=== PATIENT | male | born 1950 | race Caucasian/White ===

== ENCOUNTER 2020-02-01 00:48 | Inpatient (IN) | payer MEDICARE, OTHER, SELFPAY ==
[2020-02-01] VITALS (17 sets, daily range): BP systolic 103–144; BP diastolic 43–125; PULSE 58–80; RESP 16–20; TEMP 36.7–39.4; O2SAT 90–98; BMI 23.7
--- NOTE | ~2020-02-01 | XR_ITS ---
EXAMINATION: XR chest 2V DATE: 02/02/2020 15:52 INDICATION: Shortness of breath. Chest pain. TECHNIQUE: Frontal and lateral views of the chest were obtained. COMPARISON: Chest 2 views 02/01/2020 FINDINGS: There are small pleural effusions. There is a diffuse interstitial pattern, consistent with mild pulmonary edema. There are airspace opacities in the lower lung zones. No pneumothorax. The hea rt size is normal. Median sternotomy wires are noted. There is chronic anterior wedging of multiple t horacic vertebral bodies. IMPRESSION: 1. Mild pulmonary edema. 2. New small pleural effusions. 3. New airspace opacities in the lower lung zones, consistent with atelectasis versus pneumonia. Reviewed, dictated and finalized at location A.
--- NOTE | ~2020-02-01 | XR_ITS ---
EXAMINATION: XR abdomen obstructive series DATE: 02/04/2020 10:55 INDICATION: Abdominal pain TECHNIQUE: Upright and supine views of the abdomen were obtained. COMPARISON: 06/28/2012 FINDINGS: There is a large volume of colonic stool. No dilated loops of bowel are evident. The lung b ases are clear. There is no free intraperitoneal gas. Mild lumbar spondylosis is noted. Median sterno alicia wires and mediastinal surgical clips are seen, likely from prior coronary artery bypass grafting . A coronary artery stent is noted. IMPRESSION: 1. Constipation. Nonobstructive bowel gas pattern. Reviewed, dictated and finalized at location A.
--- NOTE | ~2020-02-01 | XR_ITS ---
EXAMINATION: XR chest 2V DATE: 02/01/2020 02:38 INDICATION: Weakness TECHNIQUE: AP and lateral views of the chest are obtained. COMPARISON: 02/26/2017 FINDINGS: The lungs are free of acute opacities. There is no pleural effusion or pneumothorax. Median sternotomy wires and mediastinal surgical clips are seen, likely from prior coronary artery bypass g rafting. There are multiple stable chronic compression fractures of the midthoracic spine. IMPRESSION: 1. No acute cardiopulmonary abnormality. Reviewed, dictated and finalized at location A.
--- NOTE | ~2020-02-01 | CT_ITS ---
EXAMINATION: CTA brain carotid DATE: 02/01/2020 02:30 INDICATION: Dizziness. TECHNIQUE: Computed tomographic angiography (CTA) of the head was performed without and with 100 mL O mnipaque-350 intravenous contrast. CTA of the neck was performed with intravenous contrast. Automated exposure control and iterative reconstruction technique were employed. The dose-length product was 1 816.60 mGy-cm. Maximum intensity projection and volume rendered 3D-reconstructions were created by hollie mcqueen technologist on a separate workstation. COMPARISON: Head CT 02/26/2017 FINDINGS: HEAD CTA: There are old infarcts in right frontal lobe. There is an old lacunar infarct in left cauda te nucleus. There are scattered areas of low attenuation in the cerebral white matter, likely chronic small vessel ischemic disease. There is no intracranial hemorrhage, acute infarction, or abnormal in tracranial mass lesion. The ventricles are normal in size. There is mild mucosal thickening in the pa ranasal sinuses. The mastoid air cells are normal. The orbits are normal. The vertebral arteries are codominant. There is no significant stenosis of basilar artery or the posterior cerebral arteries. Th ere is mild stenosis of the intracranial internal carotid arteries. There is no significant stenosis of the anterior or middle cerebral arteries. Right A1 anterior cerebral artery segment is small, a no rmal variant. Anterior communicating artery is normal. The posterior communicating arteries are serge l. There is no aneurysm. NECK CTA: There is mild scarring at the lung apices. There are no pathologically enlarged lymph nodes . There is no significant stenosis of the vertebral arteries. There is plaque in the proximal interna l carotid arteries. There is 16% stenosis of the proximal right internal carotid artery relative to n ormal distal artery lumen diameter (NASCET criteria). There is 25% stenosis of the proximal left inte rnal carotid artery relative to normal distal artery lumen diameter. There is severe cervical spondyl osis. IMPRESSION: 1. Old infarcts in the right frontal lobe and left caudate nucleus. 2. No aneurysm or significant intracranial arterial stenosis. 3. 16% stenosis of the proximal right internal carotid artery relative to normal distal artery lumen diameter (NASCET criteria). 4. 25% stenosis of the proximal left internal carotid artery relative to normal distal artery lumen d iameter. Reviewed, dictated and finalized at location A. IMPRESSION: 1. Old infarcts in the right frontal lobe and left caudate nucleus. 2. No aneurysm or significant intracranial arterial stenosis. 3. 16% stenosis of the proximal right internal carotid artery relative to serge l distal artery lumen diameter (NASCET criteria). 4. 25% stenosis of the proximal left internal carotid artery relative to normal distal artery lumen diameter.
--- NOTE | 2020-02-01 01:06 | ECG_ITS ---
Measurements Intervals [place] Rate: 71 P: [place]: 0 QRS: -33 QRSD: 191 T: 0 QT: 349 QTc: 380 Interpretive Statements ACCLERATED JUNCTIONAL RHYTHM LEFT AXIS DEVIATION INTRAVENTRICULAR CONDUCTION DELAY ANTEROSEPTAL INFARCT, AGE INDETERMINATE BORDERLINE T WAVE ABNORMALITY- HIGH LATERAL LEADS ABNORMAL ECG Electronically Signed On 02-01-2020 7:16:37 CDT by Keith Aburto D.O.
[2020-02-01 01:15] LABS: Basophils Absolute Auto 0.1 K/mm3 (0.0-0.1); Basophils Percent Auto 0.4 % (0.2-1.2); Eosinophils Percent Auto 0.1 % (0-4.4); Hematocrit 39.5 % (42.0-52.0); Hemoglobin 13.6 g/dL (14.0-18.0); Immature Granulocyte Absolute 0.24 K/mm3 (0.00-0.031); Immature Granulocyte Percent A 1.3 % (0-0.5); Lymphocytes Absolute Auto 1.26 K/mm3 (0.9-3.2); Lymphocytes Percent Auto 6.8 % (18.3-44.2); Mean Corpuscular HGB Conc 34.4 g/dl (32-36); Mean Corpuscular Hemoglobin 32.2 pg (26-34); Mean Corpuscular Volume 93.6 fl (80-100); Mean Platelet Volume 10.7 fl (7.4-10.4); Monocytes Absolute Auto 2.4 K/mm3 (0.1-0.6); Monocytes Percent Auto 12.9 % (2.6-8.5); Neutrophils Absolute Auto 14.6 K/mm3 (1.3-6.7); Neutrophils Percent Auto 78.5 % (45.5-73.1); Platelet Count Result 168 k/mm3 (150-375); Red Blood Count 4.22 M/mm3 (4.6-6.20); Red Cell Distribution Width 13.3 % (11.5-14.5); White Blood Count 18.5 K/mm3 (4.5-10.0)
[2020-02-01 01:27] LABS: Alanine Aminotransferase 27 U/L (4-50); Albumin Level 3.9 g/dL (3.5-5.1); Alkaline Phosphatase 96 U/L (38-126); Anion Gap 8 mmol/L (8-16); Aspartate Amino Transferase 43 U/L (17-59); Bilirubin,Total 0.4 mg/dL (0.2-1.3); Blood Urea Nitrogen 14 mg/dL (9-20); Calcium 8.2 mg/dL (8.4-10.2); Carbon Dioxide 24 mmol/L (22-30); Chloride 99 mmol/L (98-107); Estimated CRCL calculation 49 ml/min; Estimated Glomerular Filt Rate 55; Glucose 164 mg/dL (75-110); Potassium 3.7 mmol/L (3.4-5.0); Sodium 131 mmol/L (137-145)
[2020-02-01 01:34] LABS: INR 1.2; Prothrombin Time 14.5 Seconds (11.1-14.7)
[2020-02-01 01:35] LABS: Partial Thromboplastin Time 30.9 SECONDS (22.3-36.8)
--- NOTE | 2020-02-01 02:26 | ED.DIZZY ---
HPI - Dizziness General Chief Complaint: Dizziness Stated Complaint: dizziness Time Seen by Provider: 02/01/20 01:00 Source: patient Mode of arrival: EMS Limitations: no limitations History of Present Illness HPI Narrative: This patient is a 69 year old male who presents for evaluation of dizziness x 2 days. He states he has been having dizziness . He reports he is having difficulty walking and he has hit his head on the wall twice due to dizziness. He describes dizziness as feeling unsteady. He denies a headache but reports lights are both him. He denies blurred vision or diplopia but he feels as if he sees things moving when they are not. He also reports both legs feel fatigued. HE denies numbness or tingling. Related Data Home Medications Medication Instructions Recorded Confirmed Aspirin Low Dose 81 mg PO DAILY 02/01/20 02/01/20 ezetimibe 10 mg PO DAILY 02/01/20 02/01/20 phenytoin sodium extended 200 mg PO BID 02/01/20 02/01/20 rosuvastatin 20 mg PO DAILY 02/01/20 02/01/20 Allergies Allergy/AdvReac Type Severity Reaction Status Date / Time No Known Allergies Allergy Verified 09/03/17 09:12 Review of Systems Review of Systems: All systems reviewed & are unremarkable except as noted in HPI and below Constitutional: Constitutional: Denies chills, Denies fever(s) and Reports weakness Eyes: Eyes: Reports photophobia Cardiovascular: Cardiovascular: Denies chest pain and Denies radiating jaw, neck or arm pain Respiratory: Respiratory: Denies cough and Denies dyspnea Gastrointestinal: Gastrointestinal: Denies abdominal pain, Denies nausea and Denies vomiting Neurologic: Reports dizziness, Denies headache(s), Denies focal weakness, Denies numbness and Reports weakness [facility] Past Medical History Medical History (Updated 02/01/20 @ 07:27 by Carina Hays MD) Seizure Surgical History Surgical History (Updated 02/01/20 @ 02:27 by Carina Hays MD) Hx of CABG Family History Family History (Updated 02/01/20 @ 04:47 by Penny Otto RN) Sibling Diabetes mellitus Father Acute myocardial infarction Other Family history of arthritis Social History Social History Smoking packs per day: 2 Smoking cigarettes per day: 40.0 Years smoked: 50 Smoking pack-years: 100.00 Smoking status: Current every day smoker Tobacco type: cigarettes Alcohol intake: former Drinks per week: 30 Substance use: never Substance use type: does not use Gender identity (if verbalized by the patient): Male Sexual Orientation (if Verbalized by the Patient): Straight or Heterosexual Spiritual care concerns: No Exam Const: General: no acute distress and alert Orientation/consciousness: patient oriented x3 HENMT: Head: normocephalic and atraumatic Ears: other (abrasion to right ear lobe) Face and sinus: face symmetric Mouth: Yes Normal oral and palatal mucosa present and Yes oropharynx normal Throat: posterior oropharynx normal and uvula midline Eyes: Conjunctivae: conjunctivae normal Pupils: Equal, round and reactive pupils present EOM: EOMs intact bilaterally Chest: Chest palpation & inspection: normal inspection of the chest Resp: Effort & Inspection: normal respiratory effort and no retractions Auscultation: clear to auscultation bilaterally Cardio: Rate: regular rate Rhythm: regular rhythm Heart sounds: no murmurs GI: GI Palp: Yes Soft to palpation and No Tenderness to palpation present (GI) Auscultation: normal bowel sounds Neuro: General: patient oriented x3, moves all extremities, no meningeal signs, no focal motor deficits and CN's II-XI intact bilaterally Speech: normal speech Coordination: [id number] test normal and other (abnormal finger to nose on the left) Course Consultations Consultation #1: I Discussed with Dr. Porras that patient needs to be admitted for dilantin toxicity. He accepts admission Date: 02/01/20 Time: 03:50 Vital Signs V
[2020-02-01 02:49] LABS: Phenytoin Dilantin 32 ug/mL (10-20)
[2020-02-01 03:05] LABS: Add Urine Microscopic? YES; Appearance Urine Cloudy (Clear); Bacteria Urine 4+ /hpf; Bilirubin Urine Negative (Negative); Blood Urine 3+ (Negative); Color Urine Yellow (Yellow); Glucose Urine UA Negative (Negative); Ketones Urine Negative (Negative); Leukocyte Esterase Ur 2+ LEU/UL (Negative); Mucus Urine Heavy /lpf; Nitrate Urine Positive (Negative); Protein Urine 2+ mg/dL (Negative); Specific Grav Ur 1.019 (1.001-1.035); Urobilinogen Urine Negative mg/dL (<2.0); WBC Urine >75 /hpf
--- NOTE | 2020-02-01 04:30 | PC.NURSE ---
This patient, Nicola Ash, was admitted to Medical Room 252-01. Patient/family oriented to hospital policies and general routines including ID bracelet, bed and alarms, visiting hours, pain management, procedures, bathroom and other care routines, personal items, smoking policy, room service/diet, and visiting hours. Valuables list has been completed. Information on how to activate the Rapid Response Team has been discussed. Patient/Family are encouraged to report perceived risks to care and to ask questions if they do not understand what they are told or what they should do.
[2020-02-01] MEDS: SODIUM CHLORIDE 0.9% IV 1,000 ML 125 ML IV CONT ×2 (05:02→14:39)
--- NOTE | 2020-02-01 06:45 | PC.NURSE ---
0610 pt arrives to floor via bed from 2nd floor, a/o x3, tele initiated. ivf running as ordered
[2020-02-01] MEDS: EZETIMIBE 10 MG TABLET PO (10:08)
[2020-02-01] MEDS: ROSUVASTATIN 10 MG TABLET 20 MG PO (10:08)
--- NOTE | 2020-02-01 12:16 | PM.IMHP ---
H&P: HPI History of Present Illness Date/Time: 02/01/20 1100 Chief complaint: Dizziness Narrative: Date of Service is 02/01/20 1100 The supervising physician for this history and physical is Dr Tatianna Phillips. Mr. Ash is a 69yo M with history of seizure disorder, coronary artery disease s/p CABG 2012, anxiety, ongoing tobacco use who presented to the ED for evaluation of dizziness worsening over the last 2 days. He described that he was walking in his home and hit his head on the wall while walking because he was dizzy. He tells me he fell three times. He describes that it looks like stationary objects are moving. This mostly began around 3 days ago. His last seizure was in May 2019 at which time he was treated at [facility]; prior to this he had not had a seizure in many years. Due to this breakthrough seizures in May, his dilantin was increased from 400mg to 600mg daily. Since that time, he has felt like he's had issues with equilibrium and balance , so much so that his neurologist at the time, Dr Chamorro, decreased his dilantin back to 400 daily. He also notes at that time, he was changed from extended release capsules to chewable tablets and is unsure if that is contributing to his issues. He tells me Dr Chamorro retired and he recently met with Dr Blake a few weeks ago, per patient. He denies syncope, chest pain, shortness of breath, palpitations, headaches, nausea, vomiting. He describes urinary urgency and dribbling, denies dysuria. Dilantin level found to be elevated at 32 in ED. Further workup thus far includes a CTA head/neck which demonstrated multiple old infarcts, no aneurysm or significant intracranial arterial stenosis or other acute findings. Furthermore, he is noted to have an abnormal UA and was started on Rocephin. He is admitted to the hospitalist service for management of dilantin toxicity and UTI. Review of Systems Review of Systems: Narrative: Still a bit dizzy today and feeling off-balance but improved. Dysuria improved. No hematuria. No chest pain, SOB, nausea, vomiting, diarrhea, hematochezia, melena, neck pain or stiffness, headache, or focal weakness. Twelve systems were reviewed with pertinent positives and negatives as per HPI. Except as documented, all other systems were reviewed and are negative. [facility] Past Medical History Medical History (Updated 02/01/20 @ 23:30 by Janneth Cuenca PA-C) Anxiety Cardiomyopathy Chronic cerebrovascular accident Coronary artery disease Dyslipidemia Seizure disorder Tobacco abuse Surgical History Surgical History H/O foot surgery Left foot surgery due to a fracture around 2004 H/O heart artery stent Patient believes in 2008 H/O total knee replacement R total knee arthroplasty by Dr Campos September 2017 Hx of CABG [address] Cherry 2012 Family History Family History Sibling Diabetes mellitus Father Acute myocardial infarction Other Family history of arthritis Social History Social History (Updated 02/01/20 @ 23:18 by Janneth Cuenca PA-C) Social History: Mr. Ash is , retired from working as a security administrator, lives at home alone. He smokes two packs of cigarettes per day for the last 50 years. 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 He had a 4-month binge of alcohol abuse relapse again last year but now has been sober since December 2018. Denies other substance use. PCP is at [facility] - Dr Floyd Patient designates his friend, Bola Keyes, to be his surrogate decision maker and wishes his code status to be Do Not Resuscitate. Smoking packs per day: 2 Smoking cigarettes per day: 40.0 Years smoked: 50 Smoking pack-years: 100.00 Smoking status: Current every day smoker Tobacco type: cigarettes Alcohol intake: former Drinks per week: 30 [place]
[2020-02-01] MEDS: ACETAMINOPHEN 325 MG TABLET 650 MG PO (15:46)
[2020-02-02] VITALS (12 sets, daily range): BP systolic 100–139; BP diastolic 49–61; PULSE 62–106; RESP 16–26; TEMP 36.7–38.3; O2SAT 89–96
--- NOTE | 2020-02-02 | ECHO_ITS ---
Patient Info Name: Nicola Ahs Age: 69 years : 1950 Gender: Male Ht: 69 in Wt: 160 lbs BSA: 1.88 m2 HR: 69 bpm BP: 160 / 60 mmHg Technical Quality: Good Exam Date: 02/02/2020 11:27 AM Exam Location: [facility] Patient Status: Inpatient Admit Date: 02/02/2020 Staff Ordering Physician: Brisa Penny PA-C Back Sizer: Javed West, [place], [place] Attending Provider: Brisa Penny PA-C Referring Physician: Hemalatha TEJEDA; Exam Type: CA echo dop color flow w con Study Info Indications R60.9 - Edema, unspecified Complete two-dimensional, color flow and Doppler transthoracic echocardiogram is performed with contrast to opacify the left ventricle and to improve the deliniation of the left ventricle endocardial borders. Summary 1. Left ventricular systolic function is mildly reduced, estimated at 40-45%. 2. There is akinesis of distal anteroseptal wall and apex. 3. Left atrial chamber dimension is mildly enlarged. 4. There is mild aortic valve sclerosis. 5. There is no aortic valve stenosis. 6. There is no tricuspid valve regurgitation. 7. There is mild to moderate mitral valve regurgitation. 8. There is no pericardial effusion. 9. Inferior vena cava is dilated however collapses by more than >50% upon inspiration consistent with elevated right atrial pressure \R\10-15 mmhg. Left Ventricle Left ventricular chamber dimension is normal. Left ventricular systolic function is mildly reduced, estimated at 40-45%. There is no increased left ventricular wall thickness. There is akinesis of distal anteroseptal wall and apex. The left ventricular diastolic function is normal. Right Ventricle Right ventricular chamber dimension is mildly enlarged. Right ventricular systolic function is normal. Left Atria Left atrial chamber dimension is mildly enlarged. Right Atria Right atrial chamber dimension is normal. Aortic Valve The aortic valve is trileaflet. There is mild aortic valve sclerosis. There is no aortic valve stenosis. There is no aortic valve regurgitation. Pulmonic Valve The pulmonic valve is normal. There is no pulmonic valve stenosis. There is no pulmonic regurgitation. Mitral Valve The mitral valve has normal leaflets. There is no mitral valve stenosis. There is mild to moderate mitral valve regurgitation. Tricuspid Valve The tricuspid valve leaflets are normal. There is no significant tricuspid valve stenosis. There is no tricuspid valve regurgitation. pulmonary hypertension difficult to assess due to poor TR envelop. Pericardium/Pleural The pericardium appears normal. There is no pericardial effusion. Inferior Vena Cava Inferior vena cava is dilated however collapses by more than >50% upon inspiration consistent with elevated right atrial pressure \R\10-15 mmhg. Aorta The aortic root size at the sinus of Valsalva is normal. The prox ascending aorta size is normal. Left Ventricular Outflow Tract Name Value Normal LVOT 2D LVOT Diameter 1.99 cm LVOT Doppler LVOT Peak Gradient 4 mmHg LVOT Mean Gradient 2 mmHg
[2020-02-02] MEDS: SODIUM CHLORIDE 0.9% IV 1,000 ML 125 ML IV CONT ×2 (04:15→12:25)
[2020-02-02 06:55] LABS: Basophils Absolute Auto 0.1 K/mm3 (0.0-0.1); Basophils Percent Auto 0.4 % (0.2-1.2); Eosinophils Absolute Auto 0.1 K/mm3 (0-0.3); Eosinophils Percent Auto 0.7 % (0-4.4); Hematocrit 35.5 % (42.0-52.0); Hemoglobin 12.4 g/dL (14.0-18.0); Immature Granulocyte Absolute 0.16 K/mm3 (0.00-0.031); Immature Granulocyte Percent A 0.9 % (0-0.5); Immature Platelet Fraction Pct 5.9 % (0.9-11.2); Lymphocytes Absolute Auto 0.58 K/mm3 (0.9-3.2); Lymphocytes Percent Auto 3.3 % (18.3-44.2); Mean Corpuscular HGB Conc 34.9 g/dl (32-36); Mean Corpuscular Hemoglobin 32.3 pg (26-34); Mean Corpuscular Volume 92.4 fl (80-100); Mean Platelet Volume 11.7 fl (7.4-10.4); Monocytes Percent Auto 11.2 % (2.6-8.5); Neutrophils Absolute Auto 14.8 K/mm3 (1.3-6.7); Neutrophils Percent Auto 83.5 % (45.5-73.1); Platelet Count Result 124 k/mm3 (150-375); Red Blood Count 3.84 M/mm3 (4.6-6.20); Red Cell Distribution Width 13.2 % (11.5-14.5); White Blood Count 17.8 K/mm3 (4.5-10.0)
[2020-02-02 07:13] LABS: Anion Gap 7 mmol/L (8-16); Blood Urea Nitrogen 16 mg/dL (9-20); Calcium 7.1 mg/dL (8.4-10.2); Carbon Dioxide 20 mmol/L (22-30); Chloride 105 mmol/L (98-107); Estimated CRCL calculation 57 ml/min; Estimated Glomerular Filt Rate > 60; Glucose 123 mg/dL (75-110); Magnesium 2.1 mg/dL (1.6-2.3); Potassium 3.8 mmol/L (3.4-5.0); Sodium 132 mmol/L (137-145)
[2020-02-02 07:18] LABS: Phenytoin Dilantin 27 ug/mL (10-20)
[2020-02-02 07:38] LABS: Burr Cells 1+ (NORMAL)
[2020-02-02] MEDS: EZETIMIBE 10 MG TABLET PO (08:25)
[2020-02-02] MEDS: ROSUVASTATIN 10 MG TABLET 20 MG PO (08:25)
--- NOTE | 2020-02-02 09:11 | ECG_ITS ---
Measurements Intervals [place] Rate: 65 P: 32 [place]: 171 QRS: 44 QRSD: 116 T: 87 QT: 392 QTc: 410 Interpretive Statements SINUS RHYTHM POSSIBLE LEFT ATRIAL ENLARGEMENT [-0.1mV P WAVE IN V1/V2] INDETERMINATE AXIS INCOMPLETE RIGHT BUNDLE BRANCH BLOCK ANTEROSEPTAL INFARCT, AGE INDETERMINATE SUBTLE ANTEROLATERAL ST ELEVATION- CONSIDER RECENT INFARCT BASELINE ARTIFACT- I, II, III, AVL, AVF, V2, V6 ABNORMAL ECG Electronically Signed On 02-02-2020 10:23:08 CDT by Keith Aburto D.O.
--- NOTE | 2020-02-02 09:11 | PC.NURSE ---
Patient c/o chest pain intermittently on left side. Pain does not radiate. No pain with inspiration. Dr sadler
[2020-02-02 10:14] LABS: NT Pro B Type Natriuretic Pept 7670 PG/ML (5-100); Troponin I 0.077 ng/mL (0.000-0.034)
[2020-02-02] MEDS: ASPIRIN 81 MG CHEWABLE TABLET PO (10:26)
--- NOTE | 2020-02-02 10:38 | PM.IMPN ---
Progress Note: A&P Assessment and Plan (1) Atypical chest pain: Code(s): R07.89 - Other chest pain Status: Acute Assessment and Plan: ----- the nurse called to tell me the patient had chest pain after transitioning from the bed to the chair this morning. I saw the patient thereafter who said his pain is better now 4/10 but was previously an 8/10 stabbing like. It was completely reproducible on exam. He had no jaw pain, arm pain, diaphoresis or shortness of breath associated with this. his last stent CABG was 2012. He does not know who his bundle helper says and thinks that starts with a Z . He has seen deana heart about 5-6 months ago. At this time will give him 324 of aspirin. I do not think he needs to be anticoagulated at this time. Echo ordered. Troponin mildly elevated 0.077 with an elevation of BNP. Will trend these. digoxin level better today 27 but still high. is a Brent consulted and let him know about the case. I offered him some of acetaminophen for his pain but he declined and said he does not like taking pain medications unless it is very bad. (2) Dilantin toxicity: Qualifiers: Encounter type: initial encounter Injury intent: accidental or unintentional Qualified Code(s): T42.0X1A - Poisoning by hydantoin derivatives, accidental (unintentional), initial encounter Code(s): T42.0X1A - Poisoning by hydantoin derivatives, accidental (unintentional), initial encounter Status: Acute Assessment and Plan: -----Unintentional. May be causing his dizziness and unsteadiness. Dilantin level 32 on arrival, now down to 27. Hold dilantin and recheck level in AM. His dose has been changed twice this year. He recently saw Dr Blake. Appreciate neurology consultation in this setting. (3) Seizure disorder: Code(s): G40.909 - Epilepsy, unspecified, not intractable, without status epilepticus Status: Chronic Assessment and Plan: -----Last seizure May 2019 at which time his Dilantin was increased from 400mg daily to 600mg daily, also notes he was switched to a chewable tablet from extended release capsule. Since then he has felt to have issues with equilibrium . Appreciate neurology consultation. (4) Acute UTI: Code(s): N39.0 - Urinary tract infection, site not specified Status: Acute Assessment and Plan: ----- urine culture growing greater than 100 1000 units of Klebsiella. No sensitivities back at this time. Continue ceftriaxone and adjust antibiotics As needed. He is not have any dysuria. Blood cultures are still pending. He did have a fever yesterday (5) Sepsis: Qualifiers: Sepsis type: sepsis due to unspecified organism Sepsis acute organ dysfunction status: unspecified Qualified Code(s): A41.9 - Sepsis, unspecified organism Code(s): A41.9 - Sepsis, unspecified organism Status: Acute Assessment and Plan: ----Evident by fevers and leukocytosis with confirmed UTI. Blood cultures drawn after antibiotics but will monitor those. Continue IV antibiotics at this time (6) Chronic cerebrovascular accident: Code(s): I69.30 - Unspecified sequelae of cerebral infarction Status: Chronic Assessment and Plan: -----Noted on CTA head/neck. Continue ASA and statin therapy. If dizziness continues after holding dilantin, could consider MRI. Appreciate neurology recommendations. (7) Coronary artery disease: Qualifiers: Coronary Disease-Associated Artery/Lesion type: bypass graft [place] vs. transplanted heart: [place] heart Associated angina: without angina Qualified Code(s): I25.810 - Atherosclerosis of coronary artery bypass graft(s) without angina pectoris Code(s): I25.10 - Atherosclerotic heart disease of [place] coronary artery without angina pectoris Status: Chronic Assessment and Plan: ----- bypass 2012. Continue aspirin. See above
[2020-02-02] MEDS: ASPIRIN 81 MG CHEWABLE TABLET 324 MG PO (11:07)
--- NOTE | 2020-02-02 11:50 | WPDNEURCNPN ---
Assessment and Plan Assessment and plan (1) Dizziness: Code(s): R42 - Dizziness and giddiness Status: Acute (2) Seizure disorder: Code(s): G40.909 - Epilepsy, unspecified, not intractable, without status epilepticus Status: Chronic (3) Dilantin toxicity: Qualifiers: Encounter type: initial encounter Injury intent: accidental or unintentional Qualified Code(s): T42.0X1A - Poisoning by hydantoin derivatives, accidental (unintentional), initial encounter Code(s): T42.0X1A - Poisoning by hydantoin derivatives, accidental (unintentional), initial encounter Status: Acute Additional Plan at this stage his ongoing history of seizure disorder complicated with Dilantin toxicity we will need to hold the Dilantin at least for 3 days with recheck the Dilantin level and most likely he will be started on 300 mg of Dilantin per day once his level comes down to 15 micro g per cc Consult date: 02/02/20 Time Seen: 11:30 HPI: Nicola Ash is a 69 year old maleHas been admitted to the hospital with the ongoing diagnosis of seizure disorder, coronary artery disease status post CABG in 2012, anxiety he initially presented to the emergency room for the complaints of dizziness of 2 weeks duration and history of fall several times over the last several days he has increasing symptomatology he reported in May 2019 he had a seizure at [facility] and due to his breakthrough seizures in May Dilantin was increased from 400 to [address] Darnell was subsequently decreased at [place] in 2 to 4 mg daily but active tablet form recently he was seen in our office 1st time when he was taking Dilantin 400 mg and has had no seizure on initial evaluation in the emergency room this time his level was 32 CTA of the head and neck revealed multiple old infarcts without any aneurysmal or intersect cranial arterial stenosis Review of Systems Review of Systems: All systems reviewed & are unremarkable except as noted in HPI and below PMFSH Past Medical History Medical History (Updated 02/02/20 @ 10:50 by Brisa Penny PA-C) Anxiety Cardiomyopathy Chronic cerebrovascular accident Coronary artery disease Dyslipidemia Seizure disorder Tobacco abuse Surgical History Surgical History H/O foot surgery Left foot surgery due to a fracture around 2004 H/O heart artery stent Patient believes in 2008 H/O total knee replacement R total knee arthroplasty by Dr Campos September 2017 Hx of CABG [address] Cherry 2012 Family History Family History Sibling Diabetes mellitus Father Acute myocardial infarction Other Family history of arthritis Social History Social History (Updated 02/01/20 @ 23:18 by Janneth Cuenca PA-C) Social History: Mr. Ash is , retired from working as a network security engineer, lives at home alone. He smokes two packs of cigarettes per day for the last 50 years. 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 He had a 4-month binge of alcohol abuse relapse again last year but now has been sober since December 2018. Denies other substance use. PCP is at [facility] - Dr Floyd Patient designates his friend, Bola Keyes, to be his surrogate decision maker and wishes his code status to be Do Not Resuscitate. Smoking packs per day: 2 Smoking cigarettes per day: 40.0 Years smoked: 50 Smoking pack-years: 100.00 Smoking status: Current every day smoker Tobacco type: cigarettes Alcohol intake: former Drinks per week: 30 Substance use: never Substance use type: does not use Gender identity (if verbalized by the patient): Male Sexual Orientation (if Verbalized by the Patient): Straight or Heterosexual Spiritual care concerns: No Meds Home Medications and Allergies Home Medications
--- NOTE | 2020-02-02 12:04 | PM.CNCAR ---
Assessment and Plan Assessment and plan (1) Atypical chest pain: Code(s): R07.89 - Other chest pain Status: Acute Assessment and Plan: 69 y/o with CAD s/p CABG, active tobacco abuse, admitted with dizziness and supra therapeutic levels of digoxin and Dilantin who is seen in cardiac consultation for chest pain and trop elevation His chest pain is reproducible and atypical for angina He has very mild trop elevation peaked at 0.07 happening in the setting of acute systolic CHF exacerbation suggested by exam, NT pro BNP of 7000 and also echo showing evidence of elevated filling pressure of both left and right atrium. Echo also shows apical akinesis with overall EF ~40-45%. Will need to get records from Dr Cherry office to see if those findings are old or new. Will start lasix 40 mg IV daily unclear to me why he is on digoxin. That is on hold currently due to high levels on admission (2) Coronary artery disease: Qualifiers: Coronary Disease-Associated Artery/Lesion type: bypass graft [place] vs. transplanted heart: [place] heart Associated angina: without angina Qualified Code(s): I25.810 - Atherosclerosis of coronary artery bypass graft(s) without angina pectoris Code(s): I25.10 - Atherosclerotic heart disease of [place] coronary artery without angina pectoris Status: Chronic Assessment and Plan: s/p CABG continue ASA and statin Request records from Dr Cherry office. unfortunately continues to smoke 2 pack a day (3) Tobacco abuse: Code(s): Z72.0 - Tobacco use Status: Chronic (4) Dizziness: Code(s): R42 - Dizziness and giddiness Status: Acute History of Present Illness History of Present Illness Consult date/time: 02/02/20 12:04 69 y/o with h/o CAD s/p CABG 2012, alcohol and tobacco abuse, seizure disorder who presented with dizziness. He was found to have elevated digoxin and Dilantin levels hence was admitted for further evaluation. While admitted he developed episode of chest pain while transferring from bed. Pain has resolved at time of my evaluation. It states that he had one painful spot and points to left upper chest wall right under the left shoulder. Pain has resolved now. He has trop of 0.07 and subsequent trop down to 0.06. EKG showed sinus rhythm with incomplete RBBB and borderline ST elevation on lateral leads however that mostly unchanged from EKG on admission. He is followed by Dr Cherry at [facility]. He had CABG in 2013. Unfortunately he continues to smoke 2 packs a day. He has history of alcohol abuse but states he has not been drinking for the last year. Reason For Visit: Dizziness Review of Systems Review of Systems: All systems reviewed & are unremarkable except as noted in HPI and below Constitutional: Constitutional: Denies fatigue and Denies headache(s) Eyes: Eyes: Denies blurry vision ENT: Reports Normal hearing present and Denies headache(s) Cardiovascular: Cardiovascular: Denies chest pain, Denies diaphoresis, Denies pedal edema, Denies leg edema, Denies lightheadedness, Denies palpitations and Denies dyspnea Respiratory: Respiratory: Denies cough and Denies dyspnea Gastrointestinal: Gastrointestinal: Denies abdominal pain Musculoskeletal: Musculoskeletal: Denies back pain Neurologic: Reports Normal hearing present and Denies headache(s) Psychiatric: Psychiatric: Denies anxiety Endocrine: Endocrine: Denies fatigue and Denies palpitations [facility] Past Medical History Medical History (Updated 02/02/20 @ 10:50 by Brisa Penny PA-C) Anxiety Cardiomyopathy Chronic cerebrovascular accident Coronary artery disease Dyslipidemia Seizure disorder Tobacco abuse Surgical History Surgical History H/O foot surgery Left foot surgery due to a fracture around 2004 H/O heart artery stent Patient believes in 2008 H/O total knee replacement R total knee
[2020-02-02] MEDS: PERFLUTREN LIPID MICROSPHERES 1.5 ML VIAL DILUTED TO 10 ML TOTAL VOLUME IV PUSH (12:08)
[2020-02-02 13:01] LABS: Troponin I 0.068 ng/mL (0.000-0.034)
[2020-02-02] MEDS: FUROSEMIDE INJ 40 MG/4 ML VIAL IV PUSH (14:47)
[2020-02-02 16:08] LABS: Troponin I 0.062 ng/mL (0.000-0.034)
[2020-02-02] MEDS: ACETAMINOPHEN 325 MG TABLET 650 MG PO (20:09)
[2020-02-03] VITALS (14 sets, daily range): BP systolic 109–140; BP diastolic 55–60; PULSE 72–85; RESP 18–20; TEMP 36.7–38.2; O2SAT 90–96
--- NOTE | 2020-02-03 06:13 | PC.NURSE ---
02/01/20629, upon arrival to this unit pt had wallet, keys and cell phon in pant's pocket, this rn offered to do a money count with pt and pt refused, pt also refused to pt items in safe.
[2020-02-03 06:30] LABS: Hematocrit 36.9 % (42.0-52.0); Hemoglobin 12.9 g/dL (14.0-18.0); Immature Platelet Fraction Pct 8.8 % (0.9-11.2); Mean Corpuscular Hemoglobin 31.7 pg (26-34); Mean Corpuscular Volume 90.7 fl (80-100); Platelet Count Result 95 k/mm3 (150-375); Red Blood Count 4.07 M/mm3 (4.6-6.20); Red Cell Distribution Width 13.2 % (11.5-14.5); White Blood Count 14.8 K/mm3 (4.5-10.0)
[2020-02-03 06:40] LABS: INR 1.1; Prothrombin Time 13.6 Seconds (11.1-14.7)
[2020-02-03 06:43] LABS: Phenytoin Dilantin 15 ug/mL (10-20)
[2020-02-03 06:44] LABS: Anion Gap 9 mmol/L (8-16); Blood Urea Nitrogen 13 mg/dL (9-20); Calcium 7.1 mg/dL (8.4-10.2); Carbon Dioxide 22 mmol/L (22-30); Chloride 98 mmol/L (98-107); Estimated CRCL calculation 62 ml/min; Estimated Glomerular Filt Rate > 60; Glucose 151 mg/dL (75-110); Magnesium 1.8 mg/dL (1.6-2.3); Potassium 3.6 mmol/L (3.4-5.0); Sodium 129 mmol/L (137-145)
[2020-02-03 07:36] LABS: Digoxin < 0.4 ng/mL (0.8-2.0)
[2020-02-03] MEDS: EZETIMIBE 10 MG TABLET PO (08:25)
[2020-02-03] MEDS: FUROSEMIDE INJ 40 MG/4 ML VIAL IV PUSH ×2 (08:25→17:43)
[2020-02-03] MEDS: ASPIRIN 81 MG CHEWABLE TABLET PO (08:26)
--- NOTE | 2020-02-03 08:39 | PM.PNCARD ---
Progress Note: A&P Assessment and Plan (1) Acute systolic CHF (congestive heart failure): Code(s): I50.21 - Acute systolic (congestive) heart failure Status: Acute Assessment and Plan: 69 y/o with CAD s/p CABG, active tobacco abuse, admitted with dizziness and supra therapeutic levels of digoxin and Dilantin who is seen in cardiac consultation for CHF exacerbation 2D echo showed EF 40-45% with apical infarct. I reviewed records from pt's primary circular saw filer (Dr Cherry). Apical infarct was noted on prior echo in 2018 and EF was also reported to be 40-45% Patient was started on lasix 40 mg IV BID. Does not appears we have accurate documentation of in/out but it appears he is diuresing well. His dyspnea is better today Continue IV lasix for today Wean supplemental oxygen as tolerated He has very mild trop elevation peaked at 0.07 happening in the setting of acute systolic CHF exacerbation Unclear why he is on digoxin. That is on hold currently due to high levels on admission (2) Coronary artery disease: Qualifiers: Coronary Disease-Associated Artery/Lesion type: bypass graft [place] vs. transplanted heart: [place] heart Associated angina: without angina Qualified Code(s): I25.810 - Atherosclerosis of coronary artery bypass graft(s) without angina pectoris Code(s): I25.10 - Atherosclerotic heart disease of [place] coronary artery without angina pectoris Status: Chronic Assessment and Plan: s/p CABG continue ASA and statin 2D echo with apical infarct which is old unfortunately continues to smoke 2 pack a day (3) Tobacco abuse: Code(s): Z72.0 - Tobacco use Status: Chronic (4) Dizziness: Code(s): R42 - Dizziness and giddiness Status: Acute Subjective Date/time seen: 02/03/20 08:39 Event of shortness of breath and hypoxia last evening noted. chest xray showed pulmonary edema and small effusions. He feels much better this am since receiving lasix Review of Systems Review of Systems: All systems reviewed & are unremarkable except as noted in HPI and below Constitutional: Constitutional: Denies fatigue and Denies headache(s) Eyes: Eyes: Denies blurry vision ENT: Reports Normal hearing present and Denies headache(s) Cardiovascular: Cardiovascular: Denies chest pain, Denies diaphoresis, Denies pedal edema, Denies leg edema, Denies lightheadedness, Denies palpitations and Denies dyspnea Respiratory: Respiratory: Denies cough and Denies dyspnea Gastrointestinal: Gastrointestinal: Denies abdominal pain Musculoskeletal: Musculoskeletal: Denies back pain Neurologic: Reports Normal hearing present and Denies headache(s) Psychiatric: Psychiatric: Denies anxiety Endocrine: Endocrine: Denies fatigue and Denies palpitations Exam Const: General: no acute distress Eyes: Sclera: sclerae normal Neck: Neck: no JVD Carotids: no bruits Resp: Effort & Inspection: normal respiratory effort Auscultation: clear to auscultation bilaterally Cardio: Rate: regular rate and not tachycardic Rhythm: regular rhythm Heart sounds: no gallops, no murmurs and no rubs Skin: General skin exam: normal color Neuro: Cranial nerves: Yes Normal hearing present Speech: normal speech Extrem: General: normal to inspection and no edema Psych: Affect: normal affect Objective Data Vital Signs Vital Signs: Vital Signs - 24 hr 02/02/20 12:00 02/02/20 14:00 02/02/20 15:14 Temperature 37.3 C Pulse Rate 65 69 88 Respiratory Rate 20 26 H Blood Pressure 139/61 Pulse Oximetry 92 89 L 02/02/20 16:00 02/02/20 20:00 02/02/20 20:09 Temperature 38.3 C H Pulse Rate 106 H 86 Respiratory Rate Blood Pressure Pulse Oximetry 96 02/02/20 21:50 02/03/20 00:00 02/03/20 04:00 Temperature 36.9 C 37.0 C 37.5 C Pulse Rate 74 85 80 Respiratory Rate 20 20 20 Blood Pressure 100/49 L 125/60 140/60 Pulse Oximetry 94 94 92 02/03/20 06:00 Temperature
[2020-02-03] MEDS: ROSUVASTATIN 10 MG TABLET 20 MG PO (10:16)
[2020-02-03] MEDS: PHENYTOIN SODIUM 100 MG CAP 300 MG PO (10:16)
--- NOTE | 2020-02-03 14:25 | PM.IMPN ---
Progress Note: A&P Assessment and Plan (1) Atypical chest pain: Code(s): R07.89 - Other chest pain Status: Acute Assessment and Plan: ----- resolved. Troponins flat. Echo shows infarct of the apex but on review of previous echo per Cardiology, this is chronic. He received IV fluids on admission and now is being diuresed. No active ACS suspected. Continue aspirin. (2) Dilantin toxicity: Qualifiers: Encounter type: initial encounter Injury intent: accidental or unintentional Qualified Code(s): T42.0X1A - Poisoning by hydantoin derivatives, accidental (unintentional), initial encounter Code(s): T42.0X1A - Poisoning by hydantoin derivatives, accidental (unintentional), initial encounter Status: Acute Assessment and Plan: -----Unintentional. May be causing his dizziness and unsteadiness. Dilantin level now 15 and neurology okay with restarting. (3) Seizure disorder: Code(s): G40.909 - Epilepsy, unspecified, not intractable, without status epilepticus Status: Chronic Assessment and Plan: -----Last seizure May 2019 at which time his Dilantin was increased from 400mg daily to 600mg daily, also notes he was switched to a chewable tablet from extended release capsule. Since then he has felt to have issues with equilibrium . Appreciate neurology consultation. (4) Acute UTI: Code(s): N39.0 - Urinary tract infection, site not specified Status: Acute Assessment and Plan: ----- urine culture growing greater than 100,000 units of Klebsiella sensitive to ceftriaxone. Continue ceftriaxone and adjust antibiotics As needed. He is not have any dysuria. Blood cultures are still pending. (5) Sepsis: Qualifiers: Sepsis type: sepsis due to unspecified organism Sepsis acute organ dysfunction status: unspecified Qualified Code(s): A41.9 - Sepsis, unspecified organism Code(s): A41.9 - Sepsis, unspecified organism Status: Acute Assessment and Plan: ----Evident by fevers and leukocytosis with confirmed UTI. Blood cultures drawn after antibiotics but will monitor those. Continue IV antibiotics at this time (6) Chronic cerebrovascular accident: Code(s): I69.30 - Unspecified sequelae of cerebral infarction Status: Chronic Assessment and Plan: -----Noted on CTA head/neck. Continue ASA and statin therapy. If dizziness continues, could consider MRI but pt appears better. Appreciate neurology recommendations. (7) Coronary artery disease: Qualifiers: Coronary Disease-Associated Artery/Lesion type: bypass graft [place] vs. transplanted heart: [place] heart Associated angina: without angina Qualified Code(s): I25.810 - Atherosclerosis of coronary artery bypass graft(s) without angina pectoris Code(s): I25.10 - Atherosclerotic heart disease of [place] coronary artery without angina pectoris Status: Chronic Assessment and Plan: ----- bypass 2013. Continue aspirin. See above (8) Tobacco abuse: Code(s): Z72.0 - Tobacco use Status: Chronic Assessment and Plan: -----Significant tobacco use with 100 pack-year history. Educated on smoking cessation for 4 minutes. Declines nicotine patch at this time. (9) Dizziness: Code(s): R42 - Dizziness and giddiness Status: Acute Assessment and Plan: ----- on exam and history it appears that could be benign positinal vertigo but cannot rule out UTI and digitoxicity as the cause. Does not appear to be cardiac in my opinion. See above. neurological exam today was within normal limits but he does have a history of old strokes. If the UTI and digital level is treated and he still has dizziness, consider MRI of the brain. CTA did not show acute stroke. (10) Acute respiratory failure with hypoxia: Code(s): J96.01 - Acute respiratory failure with hypoxia Status: A
[2020-02-03] MEDS: ACETAMINOPHEN 325 MG TABLET 650 MG PO (17:48)
[2020-02-04] VITALS (9 sets, daily range): BP systolic 100–107; BP diastolic 53–65; PULSE 71–87; RESP 16–20; TEMP 36.8–38.9; O2SAT 91–98
[2020-02-04 06:42] LABS: Hematocrit 35.6 % (42.0-52.0); Hemoglobin 12.5 g/dL (14.0-18.0); Mean Corpuscular HGB Conc 35.1 g/dl (32-36); Mean Corpuscular Hemoglobin 31.5 pg (26-34); Mean Corpuscular Volume 89.7 fl (80-100); Mean Platelet Volume 12.5 fl (7.4-10.4); Platelet Count Result 86 k/mm3 (150-375); Red Blood Count 3.97 M/mm3 (4.6-6.20)
[2020-02-04 07:02] LABS: Phenytoin Dilantin 16 ug/mL (10-20)
[2020-02-04 07:17] LABS: Alanine Aminotransferase 39 U/L (4-50); Albumin Level 3.2 g/dL (3.5-5.1); Alkaline Phosphatase 82 U/L (38-126); Anion Gap 9 mmol/L (8-16); Aspartate Amino Transferase 55 U/L (17-59); Bilirubin,Total 0.6 mg/dL (0.2-1.3); Blood Urea Nitrogen 14 mg/dL (9-20); Calcium 7.3 mg/dL (8.4-10.2); Carbon Dioxide 24 mmol/L (22-30); Chloride 94 mmol/L (98-107); Estimated CRCL calculation 57 ml/min; Estimated Glomerular Filt Rate > 60; Glucose 145 mg/dL (75-110); Potassium 3.3 mmol/L (3.4-5.0); Sodium 127 mmol/L (137-145)
[2020-02-04 07:25] LABS: NT Pro B Type Natriuretic Pept 8980 PG/ML (5-100)
[2020-02-04] MEDS: ASPIRIN 81 MG CHEWABLE TABLET PO (08:33)
[2020-02-04] MEDS: PHENYTOIN SODIUM 100 MG CAP 300 MG PO (08:34)
[2020-02-04] MEDS: FUROSEMIDE INJ 40 MG/4 ML VIAL IV PUSH (08:34)
[2020-02-04] MEDS: EZETIMIBE 10 MG TABLET PO (08:34)
[2020-02-04] MEDS: ROSUVASTATIN 10 MG TABLET 20 MG PO (08:35)
--- NOTE | 2020-02-04 10:31 | PM.PNCARD ---
Progress Note: A&P Assessment and Plan (1) Acute systolic CHF (congestive heart failure): Code(s): I50.21 - Acute systolic (congestive) heart failure Status: Acute Assessment and Plan: 69 y/o with CAD s/p CABG, active tobacco abuse, admitted with dizziness and supra therapeutic levels of Dilantin who is seen in cardiac consultation for CHF exacerbation 2D echo showed EF 40-45% with apical infarct. Reviewed records from pt's primary sales designer (Dr Cherry). Echo is unchanged He diuresed well. May switch Lasix to PO. Would recommend 40 mg po daily on discharge. He was not previously on Lasix prior to admission He is not on BB/MANUELA. BP is borderline low. Consider adding low dose in outpatient settings if BP better . He has very mild trop elevation peaked at 0.07 happening in the setting of acute systolic CHF exacerbation (2) Coronary artery disease: Qualifiers: Coronary Disease-Associated Artery/Lesion type: bypass graft [place] vs. transplanted heart: [place] heart Associated angina: without angina Qualified Code(s): I25.810 - Atherosclerosis of coronary artery bypass graft(s) without angina pectoris Code(s): I25.10 - Atherosclerotic heart disease of [place] coronary artery without angina pectoris Status: Chronic Assessment and Plan: s/p CABG continue ASA and statin 2D echo with apical infarct which is old unfortunately continues to smoke 2 pack a day Follow up with patient sales designer at [facility] (3) Tobacco abuse: Code(s): Z72.0 - Tobacco use Status: Chronic Assessment and Plan: smoking cessation encouraged (4) Dizziness: Code(s): R42 - Dizziness and giddiness Status: Acute Subjective Date/time seen: 02/04/20 10:31 No overnight events. He feels better overall except he can't have good night sleep and not enjoying hospital food Review of Systems Review of Systems: All systems reviewed & are unremarkable except as noted in HPI and below Constitutional: Constitutional: Denies fatigue and Denies headache(s) Eyes: Eyes: Denies blurry vision ENT: Reports Normal hearing present and Denies headache(s) Cardiovascular: Cardiovascular: Denies chest pain, Denies diaphoresis, Denies pedal edema, Denies leg edema, Denies lightheadedness, Denies palpitations and Denies dyspnea Respiratory: Respiratory: Denies cough and Denies dyspnea Gastrointestinal: Gastrointestinal: Denies abdominal pain Musculoskeletal: Musculoskeletal: Denies back pain Neurologic: Reports Normal hearing present and Denies headache(s) Psychiatric: Psychiatric: Denies anxiety Endocrine: Endocrine: Denies fatigue and Denies palpitations Exam Const: General: no acute distress Eyes: Sclera: sclerae normal Neck: Neck: no JVD Carotids: no bruits Resp: Effort & Inspection: normal respiratory effort Auscultation: clear to auscultation bilaterally Cardio: Rate: regular rate and not tachycardic Rhythm: regular rhythm Heart sounds: no gallops, no murmurs and no rubs Skin: General skin exam: normal color Neuro: Cranial nerves: Yes Normal hearing present Speech: normal speech Extrem: General: normal to inspection and no edema Psych: Affect: normal affect Objective Data Vital Signs Vital Signs: Vital Signs - 24 hr 02/03/20 12:00 02/03/20 14:00 02/03/20 14:33 Temperature 38.2 C H Pulse Rate 76 82 Respiratory Rate 18 Blood Pressure 114/55 L Pulse Oximetry 95 92 02/03/20 16:00 02/03/20 17:48 02/03/20 17:56 Temperature 38.1 C H Pulse Rate 83 Respiratory Rate Blood Pressure Pulse Oximetry 96 02/03/20 18:45 02/03/20 18:48 02/03/20 20:00 Temperature 36.7 C 36.7 C Pulse Rate 72 Respiratory Rate Blood Pressure Pulse Oximetry 94 02/03/20 22:00 02/04/20 00:00 02/04/20 04:00 Temperature 37.1 C Pulse Rate 78 87 83 Respiratory Rate 18 Blood Pressure 109/59 L Pulse Oximetry 90 09/0
--- NOTE | 2020-02-04 10:35 | PM.IMPN ---
Progress Note: A&P Assessment and Plan (1) Hyponatremia: Code(s): E87.1 - Hypo-osmolality and hyponatremia Status: Acute Assessment and Plan: ----- sodium was 131 on admission and has decreased likely due to IV diuretics 07/04/2026 today. He does not appear fluid overloaded. Will stop the IV diuretics at this time to see how his sodium improved. Continue fluid restriction. No dizziness or altered mental status associated with this. Monitor (2) Atypical chest pain: Code(s): R07.89 - Other chest pain Status: Acute Assessment and Plan: ----- resolved. Troponins flat. Echo shows infarct of the apex but on review of previous echo per Cardiology, this is chronic. No active ACS suspected. Continue aspirin. (3) Dilantin toxicity: Qualifiers: Encounter type: initial encounter Injury intent: accidental or unintentional Qualified Code(s): T42.0X1A - Poisoning by hydantoin derivatives, accidental (unintentional), initial encounter Code(s): T42.0X1A - Poisoning by hydantoin derivatives, accidental (unintentional), initial encounter Status: Acute Assessment and Plan: -----Unintentional. May be causing his dizziness and unsteadiness. Dilantin restarted yesterday. (4) Seizure disorder: Code(s): G40.909 - Epilepsy, unspecified, not intractable, without status epilepticus Status: Chronic Assessment and Plan: -----Last seizure May 2019 at which time his Dilantin was increased from 400mg daily to 600mg daily, also notes he was switched to a chewable tablet from extended release capsule. Since then he has felt to have issues with equilibrium . Appreciate neurology consultation. (5) Acute UTI: Code(s): N39.0 - Urinary tract infection, site not specified Status: Acute Assessment and Plan: ----- urine culture growing greater than 100,000 units of Klebsiella sensitive to ceftriaxone. Continue ceftriaxone and adjust antibiotics As needed. He is not having any dysuria But does have left lower quadrant pain today. white blood cell count coming down nicely now 13.0. Blood cultures No growth to date (6) Sepsis: Qualifiers: Sepsis type: sepsis due to unspecified organism Sepsis acute organ dysfunction status: unspecified Qualified Code(s): A41.9 - Sepsis, unspecified organism Code(s): A41.9 - Sepsis, unspecified organism Status: Acute Assessment and Plan: ---- resolved.Evident by fevers and leukocytosis with confirmed UTI. Blood cultures drawn after antibiotics but are negative. Continue IV antibiotics at this time (7) Chronic cerebrovascular accident: Code(s): I69.30 - Unspecified sequelae of cerebral infarction Status: Chronic Assessment and Plan: -----Noted on CTA head/neck. Continue ASA and statin therapy. No acute stroke suspected. Appreciate neurology recommendations. (8) Coronary artery disease: Qualifiers: Coronary Disease-Associated Artery/Lesion type: bypass graft [place] vs. transplanted heart: [place] heart Associated angina: without angina Qualified Code(s): I25.810 - Atherosclerosis of coronary artery bypass graft(s) without angina pectoris Code(s): I25.10 - Atherosclerotic heart disease of [place] coronary artery without angina pectoris Status: Chronic Assessment and Plan: ----- bypass 2013. Continue aspirin. See above (9) Tobacco abuse: Code(s): Z72.0 - Tobacco use Status: Chronic Assessment and Plan: -----Significant tobacco use with 100 pack-year history. Educated on smoking cessation for 4 minutes. Declines nicotine patch at this time. (10) Dizziness: Code(s): R42 - Dizziness and giddiness Status: Acute Assessment and Plan: ----- on exam and history it appears that could be benign positinal vertigo but cannot rule out UTI and digitoxicity as t
[2020-02-04] MEDS: POTASSIUM CHLORIDE 20 MEQ TABLET 40 MEQ PO (11:32)
[2020-02-04] MEDS: PANTOPRAZOLE SOD SESQUIHYDRATE 20 MG TAB PO (11:32)
[2020-02-04] MEDS: polyethylene glycoL 3350 17 GM POWD.PACK PO (17:45)
[2020-02-04] MEDS: MELATONIN 5 MG TABLET PO (21:54)
[2020-02-04] MEDS: ACETAMINOPHEN 325 MG TABLET 650 MG PO (22:13)
[2020-02-05 06:00] VITALS: BP 111/64; PULSE 62; RESP 20; TEMP 37; O2SAT 94
[2020-02-05 06:10] LABS: Hematocrit 34.8 % (42.0-52.0); Hemoglobin 12.3 g/dL (14.0-18.0); Mean Corpuscular HGB Conc 35.3 g/dl (32-36); Mean Corpuscular Hemoglobin 31.6 pg (26-34); Mean Corpuscular Volume 89.5 fl (80-100); Mean Platelet Volume 11.9 fl (7.4-10.4); Platelet Count Result 97 k/mm3 (150-375); Red Blood Count 3.89 M/mm3 (4.6-6.20); Red Cell Distribution Width 13.2 % (11.5-14.5); White Blood Count 9.7 K/mm3 (4.5-10.0)
[2020-02-05 06:24] LABS: Anion Gap 6 mmol/L (8-16); Blood Urea Nitrogen 21 mg/dL (9-20); Calcium 7.5 mg/dL (8.4-10.2); Carbon Dioxide 26 mmol/L (22-30); Chloride 97 mmol/L (98-107); Estimated CRCL calculation 62 ml/min; Estimated Glomerular Filt Rate > 60; Glucose 117 mg/dL (75-110); Magnesium 2.4 mg/dL (1.6-2.3); Sodium 129 mmol/L (137-145)
[2020-02-05] MEDS: EZETIMIBE 10 MG TABLET PO (08:31)
[2020-02-05] MEDS: ASPIRIN 81 MG CHEWABLE TABLET PO (08:31)
[2020-02-05] MEDS: polyethylene glycoL 3350 17 GM POWD.PACK PO (08:31)
[2020-02-05] MEDS: ROSUVASTATIN 10 MG TABLET 20 MG PO (08:31)
[2020-02-05] MEDS: PHENYTOIN SODIUM 100 MG CAP 300 MG PO (08:31)
[2020-02-05] MEDS: PANTOPRAZOLE SOD SESQUIHYDRATE 20 MG TAB PO (08:32)
--- NOTE | 2020-02-05 09:56 | PM.PNCARD ---
Progress Note: A&P Assessment and Plan (1) Acute systolic CHF (congestive heart failure): Code(s): I50.21 - Acute systolic (congestive) heart failure Status: Acute Assessment and Plan: pt improved ECHO shoed mid to moderate LV systolic dysfunction (LVEF 4-45%) no changed from previous meds were adjusted (2) Chronic cerebrovascular accident: Code(s): I69.30 - Unspecified sequelae of cerebral infarction Status: Chronic (3) Seizure disorder: Code(s): G40.909 - Epilepsy, unspecified, not intractable, without status epilepticus Status: Chronic (4) Dilantin toxicity: Qualifiers: Encounter type: initial encounter Injury intent: accidental or unintentional Qualified Code(s): T42.0X1A - Poisoning by hydantoin derivatives, accidental (unintentional), initial encounter Code(s): T42.0X1A - Poisoning by hydantoin derivatives, accidental (unintentional), initial encounter Status: Acute Assessment and Plan: Pt appears stable from cardiac standpoint. He is going to be dc today. Fu with his primary social work manager at [facility] in one week. Subjective Date/time seen: 02/05/20 09:56 Pt feels better today. His SOB and LE edema improved. Pt was seen and examined, chart was reviewed, case d/w hospitalist's team. Review of Systems Review of Systems: All systems reviewed & are unremarkable except as noted in HPI and below Constitutional: Constitutional: Reports as per HPI Eyes: Eyes: Reports as per HPI ENT: Reports system reviewed and no additional complaints, except as documented and Reports as per HPI Cardiovascular: Cardiovascular: Reports as per HPI Respiratory: Respiratory: Reports as per HPI Gastrointestinal: Gastrointestinal: Reports as per HPI Genitourinary: Genitourinary: Reports as per HPI Musculoskeletal: Musculoskeletal: Reports as per HPI Exam Const: General: no acute distress Nutritional Appearance: well nourished Orientation/consciousness: patient oriented x3 HENMT: Head: normal to inspection and atraumatic Ears: hearing grossly normal bilaterally Face and sinus: normal facial exam Eyes: General: appearance normal, both eyes and all related structures Pupils: Equal, round and reactive pupils present EOM: EOMs intact bilaterally Neck: Neck: supple Chest: Chest palpation & inspection: normal inspection of the chest Resp: Effort & Inspection: normal respiratory effort and no respiratory distress Auscultation: clear to auscultation bilaterally Cardio: Jugular venous distension: no JVD Rate: regular rate Heart sounds: S1 normal heart sound present, S2 normal heart sound present and no murmurs Peripheral pulses: Peripheral pulses 2+ throughout GI: GI Palp: No abdominal tenderness Auscultation: normal bowel sounds Skin: General skin exam: normal color Neuro: General: patient oriented x3 Cranial nerves: Yes Equal, round and reactive pupils present Extrem: General: normal to inspection, no clubbing, cyanosis or edema and pedal edema (mild LE edema) Objective Data Vital Signs Vital Signs: Vital Signs - 24 hr 02/04/20 14:00 02/04/20 22:00 02/04/20 22:13 Temperature 37.2 C 38.9 C H 38.8 C H Pulse Rate 82 71 Respiratory Rate 16 20 Blood Pressure 103/57 L 105/53 L Pulse Oximetry 98 91 02/04/20 23:13 02/05/20 06:00 Temperature 37.2 C 37.0 C Pulse Rate 62 Respiratory Rate 20 Blood Pressure 111/64 Pulse Oximetry 94 Intake/Output Intake/Output: Intake & Output 02/02/20 02/03/20 02/04/20 02/05/20 23:59 23:59 23:59 23:59 Intake Total 4210 2170 1130 70 Output Total 650 1300 730 600 Balance 3560 870 400 -530 Meds/Results Medications: Active Medications Generic Name Dose Route Start Last Admin Trade Name Freq PRN Reason Stop Dose Admin Acetaminophen 650 mg 02/01/20 15:40 02/04/20 22:13 Tylenol Tablet PO 650 mg Q4H PRN Administration Pain or Fever Aspirin 81 mg
--- NOTE | 2020-02-05 10:14 | PM.DS ---
DS: Admitting Diagnosis Admitting Diagnosis Admitting Diagnosis: Dizziness DS: Discharge Diagnosis Discharge Diagnosis (1) Hyponatremia: Code(s): E87.1 - Hypo-osmolality and hyponatremia Status: Acute Assessment and Plan: ----- sodium was 131 on admission and has decreased likely due to IV diuretics to 127 but improved to 129 at discharge. He does not appear fluid overloaded. Called Dr. Cherry who recommended 20mg oral lasix and he is going to recheck BMP next week. Pt has had noo dizziness or altered mental status associated with this. (2) Atypical chest pain: Code(s): R07.89 - Other chest pain Status: Acute Assessment and Plan: ----- resolved. Troponins flat. Echo shows infarct of the apex but on review of previous echo per Cardiology, this is chronic. No active ACS suspected. Continue aspirin. spoke with Dr. Cherry about this. (3) Dilantin toxicity: Qualifiers: Encounter type: initial encounter Injury intent: accidental or unintentional Qualified Code(s): T42.0X1A - Poisoning by hydantoin derivatives, accidental (unintentional), initial encounter Code(s): T42.0X1A - Poisoning by hydantoin derivatives, accidental (unintentional), initial encounter Status: Acute Assessment and Plan: -----Unintentional. May be causing his dizziness and unsteadiness. Dilantin restarted and he is to have an outpt blood draw to recheck this lab. Results will be sent to Dr. leyva and i spoke with him about this. (4) Seizure disorder: Code(s): G40.909 - Epilepsy, unspecified, not intractable, without status epilepticus Status: Chronic Assessment and Plan: -----Last seizure May 2019 at which time his Dilantin was increased from 400mg daily to 600mg daily, also notes he was switched to a chewable tablet from extended release capsule. Since then he has felt to have issues with equilibrium . Appreciate neurology consultation. (5) Acute UTI: Code(s): N39.0 - Urinary tract infection, site not specified Status: Acute Assessment and Plan: ----- urine culture growing greater than 100,000 units of Klebsiella sensitive to ceftriaxone.Pt received ceftriaxone while hospitalized. white blood cell count 18.5 on admission and was 9.7 day of discharge. Blood cultures No growth to date (6) Sepsis: Qualifiers: Sepsis type: sepsis due to unspecified organism Sepsis acute organ dysfunction status: unspecified Qualified Code(s): A41.9 - Sepsis, unspecified organism Code(s): A41.9 - Sepsis, unspecified organism Status: Acute Assessment and Plan: ---- resolved.Evident by fevers and leukocytosis with confirmed UTI. Blood cultures drawn after antibiotics but are negative. (7) Chronic cerebrovascular accident: Code(s): I69.30 - Unspecified sequelae of cerebral infarction Status: Chronic Assessment and Plan: -----Noted on CTA head/neck. Continue ASA and statin therapy. No acute stroke suspected. (8) Coronary artery disease: Qualifiers: Coronary Disease-Associated Artery/Lesion type: bypass graft [place] vs. transplanted heart: [place] heart Associated angina: without angina Qualified Code(s): I25.810 - Atherosclerosis of coronary artery bypass graft(s) without angina pectoris Code(s): I25.10 - Atherosclerotic heart disease of [place] coronary artery without angina pectoris Status: Chronic Assessment and Plan: ----- bypass 2013. Continue aspirin. See above (9) Tobacco abuse: Code(s): Z72.0 - Tobacco use Status: Chronic Assessment and Plan: -----Significant tobacco use with 100 pack-year history. Educated on smoking cessation for 4 minutes. Declines nicotine patch at this time. (10) Dizziness: Code(s): R42 - Dizziness and giddiness Status: Acute Assessment and Plan: ----- on exam and
--- NOTE | 2020-02-11 13:59 | PC.NURSE ---
Blood cx are negative
== END 2020-02-05 12:48 | disposition home or self-care (01) | DRG 871 ==
LOC: ANHED 01:47 → ANH2MED 04:17 → ANH3MEDSUR 06:15
PROVIDERS: Physician Assistant; Admitting Provider Family Medicine; Emergency Provider General Practice; Visit Provider Family Medicine
DX: A41.9 Sepsis, unspecified organism (principal); I50.21 Acute systolic (congestive) heart failure; J96.01 Acute respiratory failure with hypoxia; N39.0 Urinary tract infection, site not specified; E87.1 Hypo-osmolality and hyponatremia; T42.0X5A Adverse effect of hydantoin derivatives, initial encounter; G40.909 Epilepsy, unspecified, not intractable, without status epilepticus; Z86.73 Personal history of transient ischemic attack (TIA), and cerebral infarction without residual deficits; I25.10 Atherosclerotic heart disease of native coronary artery without angina pectoris; Z72.0 Tobacco use; Z95.1 Presence of aortocoronary bypass graft; H81.10 Benign paroxysmal vertigo, unspecified ear; D69.6 Thrombocytopenia, unspecified
CPT/HCPCS: 36415; 70496; 70498; 71046; 74019; 80048; 80053; 80076; 80162; 80185; 81001; 83735; 83880; 84443; 84484; 85025; 85027; 85055; 85610; 85730; 87040; 87077; 87086; 87088; 87186; 93005; 96361; 96365; 97110; 97116; 97161; 97166; 97530; 97535; 99285; A9270; C8929; G0378; J0696; J1940; J7030; Q9957; Q9967

== ENCOUNTER 2020-03-28 08:23 | Outpatient (CLI) | payer MEDICARE, OTHER, SELFPAY ==
--- NOTE | ~2020-03-28 | US_ITS ---
EXAMINATION: US carotid duplex BI DATE: 03/28/2020 09:17 INDICATION: Carotid bruit TECHNIQUE: Grayscale, color Doppler, and pulsed Doppler images of the cervical carotid arteries were obtained. The degree of vessel stenosis is placed in one of the following categories: normal, <50%, 5 0-69%, >=70% but less than near-occlusion, near-occlusion, or total occlusion. Note that percent sten osis relative to normal distal artery lumen diameter is indirectly measured from velocity measurement s as described by David, et al. Radiology 2003; 229:340-346. COMPARISON: Carotid CT angiogram dated 02/01/2020 FINDINGS: RIGHT: The right common carotid artery (CCA) peak systolic velocity (PSV) is 71 cm/s. The right internal car otid artery (ICA) PSV is 50 cm/s. The right ICA end-diastolic velocity (EDV) is 17 cm/s. The right IC A/CCA PSV ratio is 0.7. Grayscale and color Doppler images yield an estimate of <50% diameter reducti on from plaque in the ICA. The external carotid artery (ECA) PSV is 70 cm/s. There is antegrade flow in the right vertebral artery. LEFT: The left CCA PSV is 76 cm/s. The left ICA PSV is 89 cm/s. The left ICA EDV is 24 cm/s. The left ICA/C CA PSV ratio is 1.2. Grayscale and color Doppler images yield an estimate of <50% diameter reduction from plaque in the ICA. The ECA PSV is 74 cm/s. There is antegrade flow in the left vertebral artery. IMPRESSION: 1. <50% stenosis in the right internal carotid artery. 2. <50% stenosis in the left internal carotid artery. Reviewed, dictated and finalized at location B.
--- NOTE | ~2020-03-28 | US_ITS ---
EXAMINATION: US art doppler w press UE BI DATE: 03/28/2020 09:15 INDICATION: Absent pulse at the left wrist. Peripheral vascular disease with hypercholesterolemia and smoking. TECHNIQUE: Segmental pressures and plethysmographic and Doppler waveforms of the upper extremity jose nery were obtained. COMPARISON: None. FINDINGS: Right and left brachial artery pressures of 124 mm Hg and 119 mm Hg, respectively, are concordant (no rmal difference <= 30 mmHg). The right finger:brachial systolic pressure ratio is 0.88 (normal > 0.8) . Segmental pressure gradients are normal. Arterial waveforms are biphasic with brisk systolic upstro kes throughout (normal upstroke < 0.2 s). The left finger:brachial systolic pressure ratio is 0.96. Segmental pressure gradients are normal. Ar terial waveforms are biphasic with brisk systolic upstrokes throughout. IMPRESSION: 1. No significant arterial occlusive disease to either upper limb with normal bilateral finger:brachi al artery indices. Reviewed, dictated and finalized at location B. IMPRESSION: 1. No significant arterial occlusive disease to either upper limb with normal b ilateral finger:brachial artery indices.
== END 2020-03-28 08:24 | disposition home or self-care (01) ==
LOC: ANHIMG 08:27
PROVIDERS: Visit Provider Psychiatry & Neurology Neurology
DX: I65.23 Occlusion and stenosis of bilateral carotid arteries (principal)
CPT/HCPCS: 93880; 93923

== ENCOUNTER 2020-06-22 07:31 | Outpatient (CLI) | payer MEDICARE, OTHER, SELFPAY ==
--- NOTE | ~2020-06-22 | CT_ITS ---
EXAMINATION: CT abdomen pelvis w con EXAM DATE: 06/22/2020 08:21 INDICATION: Prostate cancer. Prostate cancer. TECHNIQUE: Spiral CT of the abdomen and pelvis was performed following intravenous injection of 100 m L Omnipaque 350. Axial, coronal and sagittal images were reviewed. The dose-length product (DLP) fo r this examination was 345.85 mGy-cm. The exposure was tailored according to patient size (auto mA e xposure control), and iterative reconstruction (ASIR) was used as additional dose reduction technique . There is no prior study for comparison. FINDINGS: The liver, spleen, adrenal glands and pancreas are unremarkable. Gallbladder is unremarkab le. No biliary obstruction. Portal and splenic veins are patent. Kidneys enhance symmetrically. T here is no hydronephrosis. Mild prostatomegaly. The bladder is unremarkable. There is no retroper itoneal or pelvic lymphadenopathy. There is moderate scattered arteriosclerotic disease. Small bila teral inguinal fat-containing hernias. There is small saccular aneurysm lower abdominal aorta, dilate d portion is thrombosed with atherosclerosis. Maximal aortic diameter 2.7 cm. The appendix is not positively visualized. There is no pericecal inflammatory change to suggest appe ndicitis. There is mild sigmoid colonic diverticulosis. There is no adjacent inflammatory change to suggest diverticulitis. The stomach and small bowel are unremarkable. There is expected amount of co lonic stool. No free intraperitoneal gas. The heart is normal in size. There are no pericardial or pleural effusions. The lung bases are unremarkable. There are no osteoblastic or osteolytic lesi ons identified. L3-L5 mild to moderate compression fractures which are chronic. Mild to moderate tho racic central canal stenosis at T10-11 from posterior disc osteophyte complex. IMPRESSION: 1. Mild prostatomegaly. No evidence of metastatic disease. 2. Small saccular lower abdominal aortic aneurysm. 3. Mild sigmoid diverticulosis. 4. Small inguinal hernias. Reviewed, dictated and finalized at location A. [employer]IC
--- NOTE | ~2020-06-22 | NM_ITS ---
EXAMINATION: NM bone scan whole body DATE: 06/22/2020 10:47 INDICATION: Prostate cancer. TECHNIQUE: 24.5 mCi Tc-99m HDP was administered intravenously. Delayed whole-body scintigrams were o btained. COMPARISON: CT abdomen and pelvis 06/22/2020, chest 2 views 02/02/2020 FINDINGS: There is a right knee arthroplasty without increased activity adjacent to the arthroplasty. There is increased activity in the wrists, left ankle, acromioclavicular joints, and sternoclavicula r joints without radiographic comparison, likely degenerative. There is increased activity in the som rnum correlating with changes of median sternotomy. IMPRESSION: 1. No evidence of metastatic disease. Reviewed, dictated and finalized at location B. DINATOR OF [employer]ETIC SERVICES
[2020-06-22 08:06] LABS: Estimated Glomerular Filt Rate > 60
== END 2020-06-22 07:32 | disposition home or self-care (01) ==
LOC: ANHIMG 07:32
PROVIDERS: Visit Provider Urology
DX: C61 Malignant neoplasm of prostate (principal); K57.32 Diverticulitis of large intestine without perforation or abscess without bleeding; K40.90 Unilateral inguinal hernia, without obstruction or gangrene, not specified as recurrent; I71.4 Abdominal aortic aneurysm, without rupture
CPT/HCPCS: 74177; 78306; A9561; Q9967

== ENCOUNTER 2020-08-01 14:49 | Outpatient (CLI) | payer MEDICARE, OTHER, SELFPAY ==
[2020-08-01 16:05] LABS: Phenytoin Dilantin 35 ug/mL (10-20)
== END 2020-08-01 14:50 | disposition home or self-care (01) ==
LOC: ANHLAB 14:53
PROVIDERS: Visit Provider Psychiatry & Neurology Neurology
DX: R56.9 Unspecified convulsions (principal)
CPT/HCPCS: 36415; 80185

== ENCOUNTER 2020-08-06 07:01 | Outpatient (CLI) | payer MEDICARE, OTHER, SELFPAY ==
[2020-08-06 08:55] LABS: Phenytoin Dilantin 10 ug/mL (10-20)
== END 2020-08-06 07:02 | disposition home or self-care (01) ==
PROVIDERS: Visit Provider Psychiatry & Neurology Neurology
DX: R56.9 Unspecified convulsions (principal)
CPT/HCPCS: 36415; 80185

== ENCOUNTER 2020-08-15 09:57 | Outpatient (CLI) | payer MEDICARE, OTHER, SELFPAY ==
--- NOTE | ~2020-08-15 | XR_ITS ---
EXAMINATION: XR chest 2V EXAM DATE: 08/15/2020 11:19 INDICATION: C61 - Malignant neoplasm of prostate. TECHNIQUE: Frontal and lateral projections of the chest obtained and reviewed. Comparison is made to prior examination from 02/02/2020. FINDINGS: The lungs are clear. There are no pleural effusions. The cardiomediastinal silhouette is within normal limits. There is no pneumothorax suspected. Mild thoracic spondylosis. Sternotomy wir es are present without findings to suggest sternal dehiscence. Probable coronary artery stent. There are no osteoblastic or osteolytic lesions identified. IMPRESSION: Unremarkable chest x-ray exam. Reviewed, dictated and finalized at location A.
[2020-08-15 11:34] LABS: Basophils Absolute Auto 0.1 K/mm3 (0.0-0.1); Basophils Percent Auto 0.9 % (0.2-1.2); Eosinophils Absolute Auto 0.4 K/mm3 (0-0.3); Eosinophils Percent Auto 3.9 % (0-4.4); Hematocrit 45.6 % (42.0-52.0); Hemoglobin 15.4 g/dL (14.0-18.0); Immature Granulocyte Absolute 0.04 K/mm3 (0.00-0.031); Immature Granulocyte Percent A 0.4 % (0-0.5); Lymphocytes Absolute Auto 1.47 K/mm3 (0.9-3.2); Lymphocytes Percent Auto 14.7 % (18.3-44.2); Mean Corpuscular HGB Conc 33.8 g/dl (32-36); Mean Corpuscular Hemoglobin 31.6 pg (26-34); Mean Corpuscular Volume 93.6 fl (80-100); Mean Platelet Volume 10.8 fl (7.4-10.4); Monocytes Absolute Auto 0.8 K/mm3 (0.1-0.6); Monocytes Percent Auto 7.5 % (2.6-8.5); Neutrophils Absolute Auto 7.2 K/mm3 (1.3-6.7); Neutrophils Percent Auto 72.6 % (45.5-73.1); Platelet Count Result 225 k/mm3 (150-375); Red Blood Count 4.87 M/mm3 (4.6-6.20); Red Cell Distribution Width 13.4 % (11.5-14.5)
[2020-08-15 11:36] LABS: Add Urine Microscopic? YES; Appearance Urine Clear (Clear); Bilirubin Urine Negative (Negative); Blood Urine 2+ (Negative); Color Urine Yellow (Yellow); Glucose Urine UA Negative (Negative); Ketones Urine Negative (Negative); Leukocyte Esterase Ur Negative LEU/UL (Negative); Nitrate Urine Negative (Negative); Protein Urine Negative (Negative); Specific Grav Ur 1.012 (1.001-1.035); Urobilinogen Urine Negative mg/dL (<2.0); WBC Urine 0-3 /hpf
[2020-08-15 11:43] LABS: INR 0.8; Prothrombin Time 11.8 Seconds (11.1-14.7)
[2020-08-15 11:44] LABS: Partial Thromboplastin Time 28.7 SECONDS (22.3-36.8)
[2020-08-15 11:50] LABS: Alanine Aminotransferase 15 U/L (4-50); Albumin Level 4.5 g/dL (3.5-5.1); Alkaline Phosphatase 81 U/L (38-126); Anion Gap 4 mmol/L (8-16); Aspartate Amino Transferase 22 U/L (17-59); Bilirubin,Total 0.3 mg/dL (0.2-1.3); Blood Urea Nitrogen 15 mg/dL (9-20); Carbon Dioxide 31 mmol/L (22-30); Chloride 103 mmol/L (98-107); Estimated Glomerular Filt Rate 60; Glucose 109 mg/dL (75-110); Potassium 5.2 mmol/L (3.4-5.0); Sodium 138 mmol/L (137-145)
[2020-08-15 11:52] LABS: Phenytoin Dilantin 10 ug/mL (10-20)
== END 2020-08-15 09:58 | disposition home or self-care (01) ==
PROVIDERS: Anesthesiology; Visit Provider Urology
DX: C61 Malignant neoplasm of prostate (principal); Z01.818 Encounter for other preprocedural examination; G40.909 Epilepsy, unspecified, not intractable, without status epilepticus
CPT/HCPCS: 36415; 71046; 80053; 80185; 81001; 85025; 85610; 85730; 86850; 86900; 86901

== ENCOUNTER → 2020-08-22 00:58 | Outpatient (CLI) | payer MEDICARE, OTHER, SELFPAY ==
[2020-08-22 20:23] LABS: SARS-CoV-2 RNA PCR Negative
== END ==
PROVIDERS: Visit Provider Urology
DX: Z01.812 Encounter for preprocedural laboratory examination (principal); Z20.822 Contact with and (suspected) exposure to COVID-19
CPT/HCPCS: C9803; U0003; U0005

== ENCOUNTER 2020-08-26 14:48 | Inpatient (IN) | payer MEDICARE, OTHER, SELFPAY ==
[2020-08-15 09:38] VITALS: BP 156/80; PULSE 58; RESP 20; TEMP 36.9; O2SAT 99
[2020-08-15 10:25] VITALS: BMI 23.8
--- NOTE | 2020-08-22 17:16 | PM.IMHP ---
H&P: HPI History of Present Illness Date/Time: 08/22/20 17:16 Patient is a pleasant 70-year-old gentleman recently referred with a PSA of 9.1. He underwent prostate ultrasound and biopsy and this revealed adenocarcinoma Jay 6 and 3+4=7 in 11 of [address] scan of the abdomen and pelvis bone scan and chest x-ray were unremarkable. after a careful discussion of the therapeutic options (including active surveillance, androgen ablation, pelvic radiation in its various forms and radical prostatectomy ), he has elected for the surgical treatment option. He is aware of the risks including, but not limited to, failure to control his cancer, adverse cardiopulmonary events, rectal injury, urinary incontinence and erectile dysfunction. Prostate volume on ultrasound was 24.7 cc. Chief Complaint: Prostate cancer Review of Systems Cardiovascular: Cardiovascular: Denies chest pain, Denies lightheadedness, Denies palpitations and Denies dyspnea Respiratory: Respiratory: Denies dyspnea Gastrointestinal: Gastrointestinal: Denies diarrhea, Denies nausea and Denies vomiting Genitourinary: Genitourinary: Denies hematuria and Denies dysuria Endocrine: Endocrine: Denies palpitations PMFSH Past Medical History Medical History Anxiety Cardiomyopathy Chronic cerebrovascular accident Coronary artery disease Dyslipidemia Seizure disorder Tobacco abuse Surgical History Surgical History H/O foot surgery Left foot surgery due to a fracture around 2004 H/O heart artery stent Patient believes in 2008 H/O total knee replacement R total knee arthroplasty by Dr Campos September 2017 Hx of CABG [address] Cherry 2012 Family History Family History Sibling Diabetes mellitus Father Acute myocardial infarction Other Family history of arthritis Social History Social History Social History: Mr. Ash is , retired from working as a security site supervisor, lives at home alone. He smokes two packs of cigarettes per day for the last 50 years. 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 He had a 4-month binge of alcohol abuse relapse again last year but now has been sober since December 2018. Denies other substance use. PCP is at [place] - Dr Floyd Patient designates his friend, Bola Keyes, to be his surrogate decision maker and wishes his code status to be Do Not Resuscitate. Smoking packs per day: 2 Smoking cigarettes per day: 40.0 Years smoked: 50 Smoking pack-years: 100.00 Smoking status: Current every day smoker Tobacco type: cigarettes Second hand tobacco smoke exposure: Yes Additional smoking assessment comments: STATES DOWN TO 7-8 CIGARETTES/DAY FROM 3PK/DAY - STATES SMOKED FOR 50+YRS Alcohol intake: former Drinks per week: 30 Substance use: never Substance use type: does not use Gender identity (if verbalized by the patient): Male Spiritual care concerns: No Meds Home Medications and Allergies Home Medications Medication Instructions Recorded Confirmed Type Aspirin Low Dose 81 mg PO HS 02/01/20 08/15/20 History ezetimibe 10 mg PO HS 02/01/20 08/15/20 History rosuvastatin 20 mg PO DAILY 02/01/20 08/15/20 History finasteride 5 mg PO DAILY 08/15/20 08/15/20 History phenytoin See Rx Instructions .ROUTE .COMPLEX 08/15/20 08/15/20 History tamsulosin 0.4 mg PO DAILY 08/15/20 08/15/20 History Allergies Allergy/AdvReac Type Severity Reaction Status Date / Time No Known Allergies Allergy Verified 08/15/20 10:17 Exam Const: General: no acute distress Resp: Effort & Inspection: normal respiratory effort GI: Inspection: non-distended GI Palp: No abdominal tenderness and No Guarding due to palpation present (G
[2020-08-25] VITALS (15 sets, daily range): BP systolic 103–127; BP diastolic 47–67; PULSE 54–65; RESP 12–20; TEMP 35.7–36.9; O2SAT 94–100
[2020-08-25] MEDS: LACTATED RINGERS 1,000 ML 30 ML IV CONT ×2 (06:40→10:21)
--- NOTE | 2020-08-25 06:40 | WPDANESEPPF ---
Anes - Initial Pre Proc Eval Procedure: Operation Date: 08/25/20 07:30 Proposed Procedures p Robotic Assisted Laparoscopic Prostatectomy, Bilateral Pelvic Lymphadenectomy - David Jean-Baptiste MD Date/Time: 08/25/20 06:40 Surgeon: David Jean-Baptiste MD Pre Op Diagnosis: Prostate Cancer Patient Data Age: 70 Gender: M Height: 5 ft 8 in Weight: 70 kg Last Vital Signs Temp 36.9 C 08/15/20 09:38 Pulse 58 L 08/15/20 09:38 Resp 20 08/15/20 09:38 BP 156/80 H 08/15/20 09:38 Pulse Ox 99 08/15/20 09:38 Allergies Allergy/AdvReac Type Severity Reaction Status Date / Time No Known Allergies Allergy Verified 08/25/20 05:55 Home Medications Medication Instructions Recorded Confirmed Type Aspirin Low Dose 81 mg PO HS 02/01/20 08/25/20 History ezetimibe 10 mg PO HS 02/01/20 08/25/20 History rosuvastatin 20 mg PO HS 02/01/20 08/25/20 History finasteride 5 mg PO DAILY 08/15/20 08/25/20 History phenytoin See Rx Instructions .ROUTE .COMPLEX 08/15/20 08/25/20 History tamsulosin 0.4 mg PO DAILY 08/15/20 08/25/20 History Patient hx anesthesia problems: none Family hx anesthesia problems: none PMFSH Past Medical History Medical History Anxiety Cardiomyopathy Chronic cerebrovascular accident Coronary artery disease Dyslipidemia Seizure disorder Tobacco abuse Surgical History Surgical History H/O foot surgery Left foot surgery due to a fracture around 2004 H/O heart artery stent Patient believes in 2008 H/O total knee replacement R total knee arthroplasty by Dr Campos September 2017 Hx of CABG [address] Cherry 2012 Family History Family History Sibling Diabetes mellitus Father Acute myocardial infarction Other Family history of arthritis Social History Social History Social History: Mr. Ash is , retired from working as a security sergeant, lives at home alone. He smokes two packs of cigarettes per day for the last 50 years. 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 He had a 4-month binge of alcohol abuse relapse again last year but now has been sober since December 2018. Denies other substance use. PCP is at [place] - Dr Floyd Patient designates his friend, Bola Keyes, to be his surrogate decision maker and wishes his code status to be Do Not Resuscitate. Smoking packs per day: 2 Smoking cigarettes per day: 40.0 Years smoked: 50 Smoking pack-years: 100.00 Smoking status: Current every day smoker Tobacco type: cigarettes Second hand tobacco smoke exposure: Yes Additional smoking assessment comments: STATES DOWN TO 7-8 CIGARETTES/DAY FROM 3PK/DAY - STATES SMOKED FOR 50+YRS Alcohol intake: former Drinks per week: 30 Alcohol use details: RECOVERING ALCHOLIC LAST DRINK 12/07/1918 Substance use: never Substance use type: does not use Living arrangements: alone Gender identity (if verbalized by the patient): Male Spiritual care concerns: No Anes - Eval Final PreProcedure Day of Procedure 08/25/20 06:40 Patient weight: normal Heart: regular rate and rhythm Lungs: clear to auscultation Airway: Mallampati scale class II Neurological: alert and oriented Last oral intake: >/= 8 hours ASA classification: IV Emergent: no Anesthetic plan: proceed Anesthesia type and monitoring: general ETT and standard monitoring Informed Consent: The patient's anesthetic plan and its attendant risks including and TN and benefits were discussed with the patient. Questions were solicited and answers provided to the satisfaction of the patient.
--- NOTE | 2020-08-25 06:42 | WPDHPUPDATE1 ---
History and Physical Update Update Date/Time: 08/25/20 06:42 History and Physical has been reviewed, including an updated exam of the patient. There are NO changes in the patient's condition. Risks, benefits, and alternatives have been discussed and questions answered. Patient agrees to proceed with procedure.
[2020-08-25] MEDS: ceFAZolin 2 GM/D5W 50 ML 2 GM/50 ML BAG IVPB (07:25)
--- NOTE | 2020-08-25 10:20 | PM.PROC ---
Procedure Note - Detailed Date of procedure: 08/25/20 Pre-op diagnosis: Prostate Cancer Post-op diagnosis: same Procedure performed: Robotic assisted laparoscopic radical prostatectomy, bilateral pelvic lymphadenectomy Description of procedure: The patient was brought to the operative suite, where he was prepped and draped in routine sterile fashion while in a dorsal lithotomy, deep Trendelenburg position. A supraumbilical 10 mm trocar was placed after insufflation of the abdomen with a Veress needle. Three robotic ports were then placed under direct vision. Two of these were placed in the right lower quadrant - 10 cm and 20 cm lateral to, and in line with, the umbilicus. A third robotic trocar was placed 10 cm to the left of the umbilicus, and 20 cm to the left of the umbilicus, a 12 mm standard laparoscopic trocar was placed to be used as an visitor information assistant port. Lastly, a 5 mm trocar was placed in the left upper quadrant midway between the umbilicus and the left robotic trocar. Attention was then turned to the prostatectomy. I opted for a posterior approach in this patient. An incision was made in the parietal peritoneum along the posterior bladder/posterior prostate about 2 cm above the reflection of the peritoneum over the anterior rectum. The seminal vesicles and vas deferens were immediately identified. Dissection is undertaken in a fashion so as to avoid electrocautery as much as possible, particularly near the tips of the seminal vesicles. Dissection was also carried out in the midline so as to avoid any encounters with the ureters. The vas deferens and the seminal vesicles were dissected in their entirety to the base of the prostate. The plane anterior to Denoviller's fascia, anterior to the rectum and posterior to the prostate was then developed. I then dropped the bladder by incising the anterior parietal peritoneum just lateral to the median umbilical ligaments bilaterally. The bladder was dropped from the anterior abdominal and pelvic wall. The endopelvic fascia was identified and incised bilaterally, allowing for dissection of the posterior-lateral aspect of the prostate. The puboprostatic ligaments were transected near their origin from the posterior pubic ramus. This posterior lateral dissection of the prostate is also undertaken in a fashion so as to avoid electrocautery as much as possible. The dorsal vein of the penis is then secured with an 0 -Vicryl ligature. Attention is then turned to the bladder neck. The anterior bladder neck is incised at the vesico-prostatic junction. The previously placed urethral catheter was drawn through the urethrotomy. A very small bladder neck was maintained throughout the remainder of this dissection. The posterior bladder neck was incised in a fashion so as to avoid any injury to the ureteral orifices. Again, the small aperture of the bladder neck was maintained. The previously dissected vas deferens and the seminal vesicles were brought through the posterior bladder neck incision. The lateral prostatic pedicles were then carefully dissected from the lateral aspect of the prostate bilaterally. The prostatic pedicles were secured with Weck clips and transected. The neurovascular bundles were carefully dissected from the posterior-lateral aspect of the prostate. The dorsal vein of the penis was incised with electrocautery. Using cold scissors, the urethra was incised. After withdrawing the previously placed urethral catheter, the posterior urethra was sharply incised, as was the rectalurethralis muscle. Attention was then turned to a bilateral pelvic lymphadenectomy. The limits of this dissection were similar bilaterally. Specifically, the limits were the bifurcation of the common iliac vein proximally, the inguinal ligament distally, the obturator nerve posteriorly and the anterior aspect to the external iliac vein laterally. This dissection was undertaken with care to avoid any injury to the obturator nerve.
--- NOTE | 2020-08-25 11:19 | SUR.PHASEI ---
1120 sbar faxed floor notified
--- NOTE | 2020-08-25 11:59 | ADMGEN ---
This patient, Nicola Ash, was admitted to Medical Room 250-01. Patient/family oriented to hospital policies and general routines including ID bracelet, bed and alarms, visiting hours, pain management, procedures, bathroom and other care routines, personal items, smoking policy, room service/diet, and visiting hours. Information on how to activate the Rapid Response Team has been discussed. Patient/Family are encouraged to report perceived risks to care and to ask questions if they do not understand what they are told or what they should do.
[2020-08-25] MEDS: LACTATED RINGERS 1,000 ML 125 ML IV CONT ×2 (12:57→21:53)
[2020-08-25] MEDS: EZETIMIBE 10 MG TABLET PO (20:33)
[2020-08-25] MEDS: PHENYTOIN 50 MG CHEW 200 MG PO (20:33)
[2020-08-25] MEDS: ROSUVASTATIN 10 MG TABLET 20 MG PO (20:33)
[2020-08-26 00:06] VITALS: PULSE 65; RESP 18; O2SAT 97
[2020-08-26 00:42] VITALS: BP 115/56; PULSE 65; RESP 20; TEMP 36.9; O2SAT 92
[2020-08-26 05:23] VITALS: BP 120/51; PULSE 63; RESP 20; TEMP 36.3; O2SAT 93
[2020-08-26 05:46] LABS: Hematocrit 38.9 % (42.0-52.0); Hemoglobin 13.4 g/dL (14.0-18.0)
[2020-08-26 06:04] LABS: Anion Gap 1 mmol/L (8-16); Blood Urea Nitrogen 11 mg/dL (9-20); Carbon Dioxide 28 mmol/L (22-30); Chloride 106 mmol/L (98-107); Estimated CRCL calculation 60 ml/min; Estimated Glomerular Filt Rate > 60; Glucose 126 mg/dL (75-110); Potassium 3.8 mmol/L (3.4-5.0); Sodium 135 mmol/L (137-145)
[2020-08-26] MEDS: LACTATED RINGERS 1,000 ML 125 ML IV CONT ×3 (06:10→20:13)
--- NOTE | 2020-08-26 06:51 | WPDUROPN2 ---
Progress Note: A&P Assessment and Plan (1) Prostate cancer: Code(s): C61 - Malignant neoplasm of prostate Status: Acute Assessment and Plan: Doing well POD #1 Increase diet/activity today. Subjective Subjective Date/Time Seen: 08/26/20 06:51 POD #1: RALP/BPLND Comfortable, no c/o, tolerating diet Review of Systems Cardiovascular: Cardiovascular: Denies chest pain, Denies lightheadedness, Denies palpitations and Denies dyspnea Respiratory: Respiratory: Denies dyspnea Gastrointestinal: Gastrointestinal: Denies diarrhea, Denies nausea and Denies vomiting Genitourinary: Genitourinary: Denies hematuria and Denies dysuria Endocrine: Endocrine: Denies palpitations Exam Const: General: no acute distress Resp: Effort & Inspection: normal respiratory effort GI: Inspection: non-distended and incision (clean and dry) GI Palp: No abdominal tenderness, Yes Soft to palpation, No Tenderness to palpation present (GI) and No Guarding due to palpation present (GI) Auscultation: normal bowel sounds Objective Data Vital Signs Vital Signs: Vital Signs - 24 hr 08/25/20 10:26 08/25/20 10:40 08/25/20 10:55 Temperature 97.3 F L Pulse Rate 55 L 55 L 61 Respiratory Rate 12 20 12 Blood Pressure 117/60 119/63 123/62 Pulse Oximetry 98 99 100 08/25/20 11:10 08/25/20 11:25 08/25/20 11:40 Temperature Pulse Rate 54 L 55 L 56 L Respiratory Rate 12 12 12 Blood Pressure 114/57 L 121/58 L 119/60 Pulse Oximetry 95 96 95 08/25/20 12:00 08/25/20 12:15 08/25/20 12:45 Temperature 96.3 F L 96.5 F L 96.3 F L Pulse Rate 54 L 55 L 58 L Respiratory Rate 16 16 16 Blood Pressure 121/53 L 127/63 124/58 L Pulse Oximetry 96 95 95 08/25/20 13:45 08/25/20 14:00 08/25/20 18:05 Temperature 96.9 F L 97.6 F 98.3 F Pulse Rate 54 L 64 65 Respiratory Rate 16 16 16 Blood Pressure 103/67 126/57 L 113/47 L Pulse Oximetry 96 95 94 08/25/20 20:22 08/26/20 00:06 08/26/20 00:42 Temperature 98.5 F 98.4 F Pulse Rate 65 65 65 Respiratory Rate 18 18 20 Blood Pressure 125/58 L 115/56 L Pulse Oximetry 97 97 92 08/26/20 05:23 Temperature 97.3 F L Pulse Rate 63 Respiratory Rate 20 Blood Pressure 120/51 L Pulse Oximetry 93 Intake/Output Intake/Output: Intake & Output 08/23/20 08/24/20 08/25/20 08/26/20 23:59 23:59 23:59 23:59 Intake Total 2340 1400 Output Total 430 1450 Balance 1910 -50 Meds/Results Medications: Active Medications Generic Name Dose Route Start Last Admin Trade Name Freq PRN Reason Stop Dose Admin Ezetimibe 10 mg 08/25/20 21:00 08/25/20 20:33 Ezetimibe 10 Mg Tablet PO 10 mg HS BREE Administration Fentanyl Citrate 25 mcg 08/25/20 08:33 Fentanyl Citrate Inj (*Crx) 100 Mcg/2 Ml Vial IV PUSH Q2M PRN Pain Hyoscyamine 0.125 mg 08/25/20 11:49 Hyoscyamine Sulfate 0.125 Mg Tablet SUBLINGUAL Q4H PRN Bladder Spasm Lactated Ringer's 1,000 mls @ 125 mls/hr 08/25/20 11:49 08/26/20 06:10 Lr - Lactated Ringers Iv IV CONT 125 mls/hr .Q8H BREE Administration Acetaminophen 1,000 mg in 100 mls @ 400 mls/hr 08/25/20 12:00 08/26/20 05:27 Ofirmev 1,000 Mg Ivpb IVPB 08/26/20 12:01 400 mls/hr Q6H BREE Administration Ketorolac Tromethamine 15 mg 08/25/20 11:49 Ketorolac 15 Mg/Ml Vial (*Bkc) IV PUSH 08/26/20 11:50 Q6H PRN Pain Rated 4-6 Levofloxacin 500 mg 08/26/20 09:00 Levofloxacin Tab 500 Mg Tablet PO DAILY BREE Naloxone HCl 0.1 mg 08/25/20 11:49 Naloxone Hcl 0.4 Mg/Ml Vial IV PUSH Q2M PRN Opiate Reversal Ondansetron HCl 4 mg 08/25/20 08:33 Ondansetron Inj 4 Mg/2 Ml Vial IV PUSH ONCE PRN Nausea Ondansetron HCl 4 mg 08/25/20 11:49 Ondansetron Inj 4 Mg/2 Ml Vial IV PUSH Q6H PRN Nausea And Vomiting Phenytoin 200 mg 08/25/20 21:00 08/25/20 20:33 Phenytoin 50 Mg Chew PO 200 mg HS BREE Administration Phenytoin 100 mg 08/26/20 09:00 Phen
--- NOTE | 2020-08-26 07:23 | WPDANESPN ---
Anes - Prog Note Post-Op Date/Time: 08/26/20 07:23 Cardiovascular status: normal Respiratory status: normal Airway patency: baseline Mental status: baseline Post-Op hydration status: normal Vital Signs: Last Vital Signs Temp 36.3 C L 08/26/20 05:23 Pulse 63 08/26/20 05:23 Resp 20 08/26/20 05:23 BP 120/51 L 08/26/20 05:23 Pulse Ox 93 08/26/20 05:23 Pain Score (VAS): 0 I/O: Intake & Output 08/25/20 08/25/20 08/26/20 15:59 23:59 07:59 Intake Total 520 1820 1400 Output Total 80 350 1450 Balance 440 1470 -50 Laboratory Tests 08/26/20 05:20 08/26/20 05:20 08/26/20 08/26/20 05:20 05:20 Hgb 13.4 L Hct 38.9 L Sodium 135 L Potassium 3.8 Chloride 106 Carbon Dioxide 28 Anion Gap 1 L BUN 11 Creatinine 1.00 Estim Creat Clear Calc 60 Estimated GFR > 60 Glucose 126 H Calcium 8.0 L Post-procedural complaints: none Patient Feedback: Patient satisfied with anesthetic care.
[2020-08-26] MEDS: PHENYTOIN 50 MG CHEW 100 MG PO (08:13)
[2020-08-26 09:34] VITALS: BP 120/52; PULSE 55; RESP 20; TEMP 36.2; O2SAT 99
[2020-08-26 13:34] VITALS: BP 125/52; PULSE 65; RESP 20; TEMP 36.4; O2SAT 94
[2020-08-26] MEDS: PHENYTOIN 50 MG CHEW 200 MG PO (20:07)
[2020-08-26] MEDS: EZETIMIBE 10 MG TABLET PO (20:08)
[2020-08-26] MEDS: ROSUVASTATIN 10 MG TABLET 20 MG PO (20:08)
[2020-08-27 00:46] VITALS: BP 122/58; PULSE 76; RESP 20; TEMP 36.7; O2SAT 96
[2020-08-27] MEDS: LACTATED RINGERS 1,000 ML 125 ML IV CONT (05:09)
[2020-08-27] MEDS: ONDANSETRON INJ 4 MG/2 ML VIAL IV PUSH (05:12)
[2020-08-27 05:30] VITALS: BP 130/60; PULSE 73; RESP 18; TEMP 36.7; O2SAT 93
[2020-08-27] MEDS: HYOSCYAMINE SULFATE 0.125 MG TABLET SUBLINGUAL (06:06)
[2020-08-27] MEDS: PHENYTOIN 50 MG CHEW 100 MG PO (08:45)
[2020-08-27 10:50] VITALS: BP 130/61; PULSE 68; RESP 16; TEMP 37.5; O2SAT 88
--- NOTE | 2020-08-27 11:02 | WPDUROPN2 ---
Progress Note: A&P Assessment and Plan (1) Prostate cancer: Code(s): C61 - Malignant neoplasm of prostate Status: Acute Assessment and Plan: Persistent abdominal discomfort following robotic prostatectomy. This appears to be due to a adynamic ileus. Encouraged ambulation. Discharge later today or, hopefully he is abdominal discomfort has subsided Subjective Subjective Date/Time Seen: 08/27/20 11:02 POD #2: RALP Review of Systems Cardiovascular: Cardiovascular: Denies chest pain, Denies lightheadedness, Denies palpitations and Denies dyspnea Respiratory: Respiratory: Denies dyspnea Gastrointestinal: Gastrointestinal: Reports abdominal pain, Denies belching, Denies diarrhea, Denies nausea and Denies vomiting Genitourinary: Genitourinary: Denies hematuria and Denies dysuria Endocrine: Endocrine: Denies palpitations Exam Const: General: no acute distress Resp: Effort & Inspection: normal respiratory effort GI: Inspection: non-distended GI Palp: No abdominal tenderness and No Guarding due to palpation present (GI) Auscultation: normal bowel sounds Objective Data Vital Signs Vital Signs: Vital Signs - 24 hr 08/26/20 13:34 08/27/20 00:46 08/27/20 05:30 Temperature 97.5 F L 98.1 F 98.0 F Pulse Rate 65 76 73 Respiratory Rate 20 20 18 Blood Pressure 125/52 L 122/58 L 130/60 Pulse Oximetry 94 96 93 Intake/Output Intake/Output: Intake & Output 08/24/20 08/25/20 08/26/20 08/27/20 23:59 23:59 23:59 23:59 Intake Total 2340 4320 1200 Output Total 430 2600 1100 Balance 1910 1720 100 Meds/Results Medications: Active Medications Generic Name Dose Route Start Last Admin Trade Name Freq PRN Reason Stop Dose Admin Ezetimibe 10 mg 08/25/20 21:00 08/26/20 20:08 Ezetimibe 10 Mg Tablet PO 10 mg HS BREE Administration Fentanyl Citrate 25 mcg 08/25/20 08:33 Fentanyl Citrate Inj (*Crx) 100 Mcg/2 Ml Vial IV PUSH Q2M PRN Pain Hyoscyamine 0.125 mg 08/25/20 11:49 08/27/20 06:06 Hyoscyamine Sulfate 0.125 Mg Tablet SUBLINGUAL 0.125 mg Q4H PRN Administration Bladder Spasm Lactated Ringer's 1,000 mls @ 125 mls/hr 08/25/20 11:49 08/27/20 05:09 Lr - Lactated Ringers Iv IV CONT 125 mls/hr .Q8H BREE Administration Levofloxacin 500 mg 08/26/20 09:00 08/27/20 08:45 Levofloxacin Tab 500 Mg Tablet PO 500 mg DAILY BREE Administration Naloxone HCl 0.1 mg 08/25/20 11:49 Naloxone Hcl 0.4 Mg/Ml Vial IV PUSH Q2M PRN Opiate Reversal Ondansetron HCl 4 mg 08/25/20 08:33 Ondansetron Inj 4 Mg/2 Ml Vial IV PUSH ONCE PRN Nausea Ondansetron HCl 4 mg 08/25/20 11:49 08/27/20 05:12 Ondansetron Inj 4 Mg/2 Ml Vial IV PUSH 4 mg Q6H PRN Administration Nausea And Vomiting Phenytoin 200 mg 08/25/20 21:00 08/26/20 20:07 Phenytoin 50 Mg Chew PO 200 mg HS BREE Administration Phenytoin 100 mg 08/26/20 09:00 08/27/20 08:45 Phenytoin 50 Mg Chew PO 100 mg QAM BREE Administration Rosuvastatin Calcium 20 mg 08/25/20 21:00 08/26/20 20:08 Rosuvastatin 10 Mg Tablet PO 20 mg HS BREE Administration
[2020-08-27] MEDS: KETOROLAC 10 MG TABLET PO (11:29)
[2020-08-27 14:00] VITALS: BP 146/69; PULSE 74; RESP 20; TEMP 36.8; O2SAT 85
[2020-08-27] MEDS: HYDROcodone/acetaminophen (*CRX) 5-325 MG TABLET 1 TAB PO (14:06)
[2020-08-27] MEDS: ROSUVASTATIN 10 MG TABLET 20 MG PO (20:32)
[2020-08-27] MEDS: PHENYTOIN 50 MG CHEW 200 MG PO (20:32)
[2020-08-27] MEDS: EZETIMIBE 10 MG TABLET PO (20:32)
[2020-08-27 22:00] VITALS: BP 145/68; PULSE 72; RESP 16; TEMP 36.7; O2SAT 94
[2020-08-28 06:00] VITALS: BP 129/60; PULSE 68; RESP 18; TEMP 36.2; O2SAT 96
[2020-08-28] MEDS: HYDROcodone/acetaminophen (*CRX) 5-325 MG TABLET 1 TAB PO ×2 (06:17→10:54)
--- NOTE | 2020-08-28 09:23 | WPDUROPN2 ---
Progress Note: A&P Assessment and Plan (1) Prostate cancer: Code(s): C61 - Malignant neoplasm of prostate Status: Acute Assessment and Plan: Slowly resolving ileus Encourage ambulation this morning. Hopefully home later today. Subjective Subjective Date/Time Seen: 08/28/20 09:23 POD #3 Feeling better, tolerating diet, passing small amounts flatus Review of Systems Cardiovascular: Cardiovascular: Denies chest pain, Denies lightheadedness, Denies palpitations and Denies dyspnea Respiratory: Respiratory: Denies dyspnea Gastrointestinal: Gastrointestinal: Denies diarrhea, Denies nausea, Denies vomiting and Reports other (hiccups) Genitourinary: Genitourinary: Denies hematuria and Denies dysuria Endocrine: Endocrine: Denies palpitations Exam Const: General: no acute distress Resp: Effort & Inspection: normal respiratory effort GI: Inspection: distended GI Palp: No abdominal tenderness and No Guarding due to palpation present (GI) Auscultation: Hypoactive bowel sounds present Objective Data Vital Signs Vital Signs: Vital Signs - 24 hr 08/27/20 10:50 08/27/20 14:00 08/27/20 22:00 Temperature 99.5 F 98.2 F 98.0 F Pulse Rate 68 74 72 Respiratory Rate 16 20 16 Blood Pressure 130/61 146/69 H 145/68 H Pulse Oximetry 88 L 85 L 94 08/28/20 06:00 Temperature 97.1 F L Pulse Rate 68 Respiratory Rate 18 Blood Pressure 129/60 Pulse Oximetry 96 Intake/Output Intake/Output: Intake & Output 08/25/20 08/26/20 08/27/20 08/28/20 23:59 23:59 23:59 23:59 Intake Total 2340 4320 2979 590 Output Total 430 2600 1775 550 Balance 1910 1720 1204 40 Meds/Results Medications: Active Medications Generic Name Dose Route Start Last Admin Trade Name Freq PRN Reason Stop Dose Admin Hydrocodone Bitart/Acetaminophen 1 tab 08/27/20 11:14 08/28/20 06:17 Hydrocodone/Acetaminophen (*Crx) 5-325 Mg Tablet PO 1 tab Q4H PRN Administration Pain Rated 8-10 Ezetimibe 10 mg 08/25/20 21:00 08/27/20 20:32 Ezetimibe 10 Mg Tablet PO 10 mg HS BREE Administration Hyoscyamine 0.125 mg 08/25/20 11:49 08/27/20 06:06 Hyoscyamine Sulfate 0.125 Mg Tablet SUBLINGUAL 0.125 mg Q4H PRN Administration Bladder Spasm Ketorolac Tromethamine 10 mg 08/27/20 11:13 08/27/20 11:29 Ketorolac 10 Mg Tablet PO 10 mg Q6H PRN Administration Pain Rated 4-7 Levofloxacin 500 mg 08/26/20 09:00 08/27/20 08:45 Levofloxacin Tab 500 Mg Tablet PO 500 mg DAILY BREE Administration Naloxone HCl 0.1 mg 08/25/20 11:49 Naloxone Hcl 0.4 Mg/Ml Vial IV PUSH Q2M PRN Opiate Reversal Ondansetron HCl 4 mg 08/25/20 08:33 Ondansetron Inj 4 Mg/2 Ml Vial IV PUSH ONCE PRN Nausea Ondansetron HCl 4 mg 08/25/20 11:49 08/27/20 05:12 Ondansetron Inj 4 Mg/2 Ml Vial IV PUSH 4 mg Q6H PRN Administration Nausea And Vomiting Phenytoin 200 mg 08/25/20 21:00 08/27/20 20:32 Phenytoin 50 Mg Chew PO 200 mg HS BREE Administration Phenytoin 100 mg 08/26/20 09:00 08/27/20 08:45 Phenytoin 50 Mg Chew PO 100 mg QAM BREE Administration Rosuvastatin Calcium 20 mg 08/25/20 21:00 08/27/20 20:32 Rosuvastatin 10 Mg Tablet PO 20 mg HS BREE Administration
[2020-08-28] MEDS: PHENYTOIN 50 MG CHEW 100 MG PO (09:47)
--- NOTE | 2020-08-28 11:00 | PC.NURSE ---
Ambulated patient in hallway. Patient's abdomen remains distended and firm with hypoactive bowel sounds. Patient c/o soreness, tenderness and a tight feeling to abdomen. States he is belching but unable to pass flatus. Hypoactive bowel sounds noted to all quadrants. Called Dr. Jean-Baptiste and notified him of same. Orders received to change diet to clear liquids and give Dulcolax suppository. Discussed with patient.
[2020-08-28] MEDS: BISACODYL 10 MG SUPPOSITORY RECTAL (13:37)
[2020-08-28 14:00] VITALS: BP 131/66; PULSE 62; RESP 20; TEMP 37.3; O2SAT 94
--- NOTE | 2020-08-28 14:58 | PC.NURSE ---
Clear liquid results only from dulcolax suppository. Patient states he feels like he has to have a BM but cannot have one. Resting in bed at this time. Abdomen remains distended.
[2020-08-28] MEDS: EZETIMIBE 10 MG TABLET PO (20:14)
[2020-08-28] MEDS: PHENYTOIN 50 MG CHEW 200 MG PO (20:15)
[2020-08-28] MEDS: ROSUVASTATIN 10 MG TABLET 20 MG PO (20:15)
[2020-08-28 22:00] VITALS: BP 139/67; PULSE 71; RESP 16; TEMP 36.8; O2SAT 92
[2020-08-29 05:33] LABS: Hematocrit 33.9 % (42.0-52.0); Hemoglobin 12.1 g/dL (14.0-18.0); Immature Platelet Fraction Pct 8.6 % (0.9-11.2); Mean Corpuscular HGB Conc 35.7 g/dl (32-36); Mean Corpuscular Hemoglobin 31.8 pg (26-34); Mean Platelet Volume 10.8 fl (7.4-10.4); Platelet Count Result 141 k/mm3 (150-375); Red Blood Count 3.81 M/mm3 (4.6-6.20); Red Cell Distribution Width 12.6 % (11.5-14.5); White Blood Count 12.2 K/mm3 (4.5-10.0)
[2020-08-29 05:42] LABS: Anion Gap 2 mmol/L (8-16); Blood Urea Nitrogen 19 mg/dL (9-20); Calcium 7.9 mg/dL (8.4-10.2); Carbon Dioxide 29 mmol/L (22-30); Chloride 97 mmol/L (98-107); Estimated CRCL calculation 66 ml/min; Estimated Glomerular Filt Rate > 60; Glucose 112 mg/dL (75-110); Potassium 3.3 mmol/L (3.4-5.0); Sodium 128 mmol/L (137-145)
[2020-08-29 06:00] VITALS: BP 132/56; PULSE 69; RESP 16; TEMP 36.6; O2SAT 91
--- NOTE | 2020-08-29 06:42 | WPDUROPN2 ---
Progress Note: A&P Assessment and Plan (1) Prostate cancer: Code(s): C61 - Malignant neoplasm of prostate Status: Acute (2) Ileus, postoperative: Code(s): K91.89 - Other postprocedural complications and disorders of digestive system; K56.7 - Ileus, unspecified Status: Acute Assessment and Plan: Improving ileus 0 will advance diet as tolerates Subjective Subjective Date/Time Seen: 08/29/20 06:42 Passing gas and scant liquid stool - feeling better. No n/v; hiccups improved. Review of Systems Cardiovascular: Cardiovascular: Denies chest pain, Denies lightheadedness, Denies palpitations and Denies dyspnea Respiratory: Respiratory: Denies dyspnea Gastrointestinal: Gastrointestinal: Denies diarrhea, Denies nausea and Denies vomiting Genitourinary: Genitourinary: Denies hematuria and Denies dysuria Endocrine: Endocrine: Denies palpitations Exam Const: General: no acute distress Resp: Effort & Inspection: normal respiratory effort GI: Inspection: non-distended GI Palp: Yes abdominal tenderness (improved) and No Guarding due to palpation present (GI) Auscultation: Hypoactive bowel sounds present (improved but still hypoactive) Urinary Catheter: Urinary Catheter: patent and draining and urine clear Objective Data Vital Signs Vital Signs: Vital Signs - 24 hr 08/28/20 14:00 08/28/20 22:00 08/29/20 06:00 Temperature 99.1 F 98.2 F 97.9 F Pulse Rate 62 71 69 Respiratory Rate 20 16 16 Blood Pressure 131/66 139/67 132/56 L Pulse Oximetry 94 92 91 Intake/Output Intake/Output: Intake & Output 08/26/20 08/27/20 08/28/20 08/29/20 23:59 23:59 23:59 23:59 Intake Total 4320 2979 1860 400 Output Total 2600 1775 1150 550 Balance 1720 1204 710 -150 Meds/Results Medications: Active Medications Generic Name Dose Route Start Last Admin Trade Name Freq PRN Reason Stop Dose Admin Hydrocodone Bitart/Acetaminophen 1 tab 08/27/20 11:14 08/28/20 10:54 Hydrocodone/Acetaminophen (*Crx) 5-325 Mg Tablet PO 1 tab Q4H PRN Administration Pain Rated 8-10 Ezetimibe 10 mg 08/25/20 21:00 08/28/20 20:14 Ezetimibe 10 Mg Tablet PO 10 mg HS BREE Administration Hyoscyamine 0.125 mg 08/25/20 11:49 08/27/20 06:06 Hyoscyamine Sulfate 0.125 Mg Tablet SUBLINGUAL 0.125 mg Q4H PRN Administration Bladder Spasm Ketorolac Tromethamine 10 mg 08/27/20 11:13 08/27/20 11:29 Ketorolac 10 Mg Tablet PO 10 mg Q6H PRN Administration Pain Rated 4-7 Levofloxacin 500 mg 08/26/20 09:00 08/28/20 09:46 Levofloxacin Tab 500 Mg Tablet PO 500 mg DAILY BREE Administration Naloxone HCl 0.1 mg 08/25/20 11:49 Naloxone Hcl 0.4 Mg/Ml Vial IV PUSH Q2M PRN Opiate Reversal Ondansetron HCl 4 mg 08/25/20 08:33 Ondansetron Inj 4 Mg/2 Ml Vial IV PUSH ONCE PRN Nausea Ondansetron HCl 4 mg 08/25/20 11:49 08/27/20 05:12 Ondansetron Inj 4 Mg/2 Ml Vial IV PUSH 4 mg Q6H PRN Administration Nausea And Vomiting Phenytoin 200 mg 08/25/20 21:00 08/28/20 20:15 Phenytoin 50 Mg Chew PO 200 mg HS BREE Administration Phenytoin 100 mg 08/26/20 09:00 08/28/20 09:47 Phenytoin 50 Mg Chew PO 100 mg QAM BREE Administration Rosuvastatin Calcium 20 mg 08/25/20 21:00 08/28/20 20:15 Rosuvastatin 10 Mg Tablet PO 20 mg HS BREE Administration Labs Labs: Laboratory Results - last 24 hr 08/29/20 08/29/20 05:15 05:15 WBC 12.2 H RBC 3.81 L Hgb 12.1 L Hct 33.9 L MCV 89.0 MCH 31.8 MCHC 35.7 RDW 12.6 Plt Count 141 L MPV 10.8 H % Immature Plt Fraction 8.6 Sodium 128 L Potassium 3.3 L Chloride 97 L Carbon Dioxide 29 Anion Gap 2 L BUN 19 Creatinine 0.90 Estim Creat Clear Calc 66 Estimated GFR > 60 Glucose 112 H Calcium 7.9 L
[2020-08-29] MEDS: PHENYTOIN 50 MG CHEW 100 MG PO (08:35)
[2020-08-29 08:41] VITALS: RESP 16; O2SAT 91
[2020-08-29] MEDS: ONDANSETRON INJ 4 MG/2 ML VIAL IV PUSH (14:04)
[2020-08-29 14:15] VITALS: BP 136/83; PULSE 82; RESP 18; TEMP 37.5; O2SAT 92
[2020-08-29 20:16] VITALS: BP 117/58; PULSE 74; RESP 16; TEMP 37.2; O2SAT 95
[2020-08-29] MEDS: EZETIMIBE 10 MG TABLET PO (20:46)
[2020-08-29] MEDS: PHENYTOIN 50 MG CHEW 200 MG PO (20:47)
[2020-08-29] MEDS: KETOROLAC 10 MG TABLET PO (20:48)
[2020-08-29] MEDS: ROSUVASTATIN 10 MG TABLET 20 MG PO (20:48)
[2020-08-30 06:00] VITALS: BP 120/60; PULSE 65; RESP 16; TEMP 36.8; O2SAT 96
--- NOTE | 2020-08-30 06:50 | WPDUROPN2 ---
Progress Note: A&P Assessment and Plan (1) Prostate cancer: Code(s): C61 - Malignant neoplasm of prostate Status: Acute (2) Ileus, postoperative: Code(s): K91.89 - Other postprocedural complications and disorders of digestive system; K56.7 - Ileus, unspecified Status: Acute Assessment and Plan: Ileus much improved/resolved. Home after lunch today. Subjective Subjective Date/Time Seen: 08/30/20 06:50 POD #4 RALP Tolerating diet, passing gas and bowel movements Review of Systems Cardiovascular: Cardiovascular: Denies chest pain, Denies lightheadedness, Denies palpitations and Denies dyspnea Respiratory: Respiratory: Denies dyspnea Gastrointestinal: Gastrointestinal: Denies diarrhea, Denies nausea and Denies vomiting Genitourinary: Genitourinary: Denies hematuria and Denies dysuria Endocrine: Endocrine: Denies palpitations Exam Const: General: no acute distress Resp: Effort & Inspection: normal respiratory effort GI: Inspection: non-distended GI Palp: No abdominal tenderness and No Guarding due to palpation present (GI) Auscultation: normal bowel sounds Objective Data Vital Signs Vital Signs: Vital Signs - 24 hr 08/29/20 08:41 08/29/20 14:15 08/29/20 20:16 Temperature 99.5 F 98.9 F Pulse Rate 82 74 Respiratory Rate 16 18 16 Blood Pressure 136/83 117/58 L Pulse Oximetry 91 92 95 08/30/20 06:00 Temperature 98.2 F Pulse Rate 65 Respiratory Rate 16 Blood Pressure 120/60 Pulse Oximetry 96 Intake/Output Intake/Output: Intake & Output 08/27/20 08/28/20 08/29/20 08/30/20 23:59 23:59 23:59 23:59 Intake Total 2979 1860 2010 300 Output Total 1775 1150 1050 1000 Balance 1204 710 960 -700 Meds/Results Medications: Active Medications Generic Name Dose Route Start Last Admin Trade Name Freq PRN Reason Stop Dose Admin Hydrocodone Bitart/Acetaminophen 1 tab 08/27/20 11:14 08/28/20 10:54 Hydrocodone/Acetaminophen (*Crx) 5-325 Mg Tablet PO 1 tab Q4H PRN Administration Pain Rated 8-10 Ezetimibe 10 mg 08/25/20 21:00 08/29/20 20:46 Ezetimibe 10 Mg Tablet PO 10 mg HS BREE Administration Hyoscyamine 0.125 mg 08/25/20 11:49 08/27/20 06:06 Hyoscyamine Sulfate 0.125 Mg Tablet SUBLINGUAL 0.125 mg Q4H PRN Administration Bladder Spasm Ketorolac Tromethamine 10 mg 08/27/20 11:13 08/29/20 20:48 Ketorolac 10 Mg Tablet PO 10 mg Q6H PRN Administration Pain Rated 4-7 Levofloxacin 500 mg 08/26/20 09:00 08/29/20 08:35 Levofloxacin Tab 500 Mg Tablet PO 500 mg DAILY BREE Administration Naloxone HCl 0.1 mg 08/25/20 11:49 Naloxone Hcl 0.4 Mg/Ml Vial IV PUSH Q2M PRN Opiate Reversal Ondansetron HCl 4 mg 08/25/20 08:33 Ondansetron Inj 4 Mg/2 Ml Vial IV PUSH ONCE PRN Nausea Ondansetron HCl 4 mg 08/25/20 11:49 08/29/20 14:04 Ondansetron Inj 4 Mg/2 Ml Vial IV PUSH 4 mg Q6H PRN Administration Nausea And Vomiting Phenytoin 200 mg 08/25/20 21:00 08/29/20 20:47 Phenytoin 50 Mg Chew PO 200 mg HS BREE Administration Phenytoin 100 mg 08/26/20 09:00 08/29/20 08:35 Phenytoin 50 Mg Chew PO 100 mg QAM BREE Administration Rosuvastatin Calcium 20 mg 08/25/20 21:00 08/29/20 20:48 Rosuvastatin 10 Mg Tablet PO 20 mg HS BREE Administration
[2020-08-30] MEDS: PHENYTOIN 50 MG CHEW 100 MG PO (08:10)
[2020-08-30] MEDS: DOCUSATE SODIUM 100 MG CAPSULE PO (08:10)
[2020-08-30 08:15] VITALS: RESP 16; O2SAT 96
[2020-08-30 13:38] VITALS: BP 123/70; PULSE 71; RESP 24; TEMP 37; O2SAT 97
--- NOTE | 2020-09-01 06:41 | PM.DS ---
DS: Admitting Diagnosis Admitting Diagnosis Admitting Diagnosis: Prostate cancer DS: Discharge Diagnosis Discharge Diagnosis (1) Ileus, postoperative: Code(s): K91.89 - Other postprocedural complications and disorders of digestive system; K56.7 - Ileus, unspecified Status: Acute (2) Hyponatremia: Code(s): E87.1 - Hypo-osmolality and hyponatremia Status: Acute (3) Prostate cancer: Code(s): C61 - Malignant neoplasm of prostate Status: Acute DS: Summary Hospital Course Hospital Course: Patient was admitted to the hospital on the morning of his planned robotic prostatectomy. The procedure, itself, was uneventful. His postoperative course was notable for a prolonged postoperative ileus that lasted for 2 3 days. Events he began to pass gas and was having bowel movements by the time of discharge. At the time of discharge his abdomen soft with minimal distention and active bowel sounds. He was tolerating a diet. Was mildly hyponatremic but this was unchanged significantly from pre-admission. Was discharged with an indwelling catheter with plans for cystogram and likely catheter removal on postoperative day 7. Time Spent with Patient Time attestation: Total time spent providing and/or coordinating discharge services: 20min Exam Const: General: no acute distress Resp: Effort & Inspection: normal respiratory effort GI: Inspection: non-distended and other (scant serous drainage right lat. incision) GI Palp: No abdominal tenderness and No Guarding due to palpation present (GI) Auscultation: normal bowel sounds DS: Data Data Completed and Pending Completed studies during hospitalization: Pending at discharge 08/25/20 09:51 Surgical [PTH] Routine Discharge Plan Discharge Attending physician on discharge: David Jean-Baptiste Discharging Clinician: David Jean-Baptiste Anticipated Discharge Date/Time: 08/30/20 01:30 Patient Disposition: Home, Self-Care Activity: may shower Diet: regular Wound Care Instructions: remove dressing to shower Discharge Instructions: 1) Win catheter -> leg bag / bedside bag at night. 2) No lifting/straining >15lbs. x3 weeks. 3) No driving until Saturday09/02/20. 4) Resume normal, pre-operative diet. 5) My office will contact regarding follow-up in 1-week with cystogram. Patient Instructions: Hydrocodone/Acetaminophen (By mouth), How to Stop Smoking (DC), Pain Management (DC), Ileus (DC), Robot Assisted Laparoscopic Prostatectomy (DC) Follow-up/Referrals: David Jean-Baptiste MD [Physician] - Discharge Medications: New hydrocodone-acetaminophen 5-325 mg tablet 1 - 2 tablet PO Q6H PRN (Reason: pain) Qty: 30 RF: 0 ciprofloxacin HCl 500 mg tablet 500 mg PO Q12H Qty: 10 RF: 0 docusate sodium [Colace] 100 mg capsule 100 mg PO DAILY Qty: 30 RF: 0 hyoscyamine sulfate 0.125 mg tablet 0.125 mg PO Q6H PRN (Reason: bladder spasms) Qty: 20 RF: 2 Continued ezetimibe 10 mg tablet 10 mg PO HS RF: 0 rosuvastatin 20 mg tablet 20 mg PO HS RF: 0 phenytoin 50 mg Tablet,Chewable See Rx Instructions .ROUTE .COMPLEX RF: 0 Held Aspirin Low Dose 81 mg PO HS RF: 0 Hold Instructions: Resume on 09/07/20. Discontinued tamsulosin 0.4 mg Capsule 0.4 mg PO DAILY RF: 0 finasteride 5 mg Tablet 5 mg PO DAILY RF: 0 Date of admission: 08/28/20 15:31 Primary Care Provider: [place], Admitting Provider: David Jean-Baptiste Attending physician on admission: David Jean-Baptiste Condition: Stable
== END 2020-08-30 14:55 | disposition home or self-care (01) | DRG 707 ==
LOC: ANHSURGERY 14:52 → ANH2MED 14:52
PROVIDERS: Admitting Provider Urology; Visit Provider Urology
PROC: 0VT04ZZ Resection of Prostate, Percutaneous Endoscopic Approach (ICD-10-PCS; CPT 55867; principal; 2020-08-25 07:30)
DX: C61 Malignant neoplasm of prostate (principal); I42.9 Cardiomyopathy, unspecified; K91.89 Other postprocedural complications and disorders of digestive system; K56.7 Ileus, unspecified; E87.1 Hypo-osmolality and hyponatremia; I25.10 Atherosclerotic heart disease of native coronary artery without angina pectoris; E78.5 Hyperlipidemia, unspecified; F17.210 Nicotine dependence, cigarettes, uncomplicated; G40.909 Epilepsy, unspecified, not intractable, without status epilepticus; Z66 Do not resuscitate; Z79.82 Long term (current) use of aspirin; Z79.899 Other long term (current) drug therapy
CPT/HCPCS: 36415; 80048; 85014; 85018; 85027; 85055; 88305; 88307; 88309; A9270; G0378; J0131; J0690; J1100; J1170; J2250; J2370; J2405; J2704; J2710; J3010; J7030; J7120

== ENCOUNTER 2020-09-02 06:52 | Outpatient (CLI) | payer MEDICARE, OTHER, SELFPAY ==
--- NOTE | ~2020-09-02 | XR_ITS ---
EXAMINATION: CYSTOGRAM DATE: 09/02/2020 07:51 INDICATION: Status post prostatectomy for prostate cancer TECHNIQUE: Initial heel cover softener radiograph of the pelvis was performed. There was retrograde administration of Omnipaque 350 mixed with saline contrast into patient's existing Win catheter. Fluoroscopic caterina ges of the pelvis were obtained. A post-void image was also performed. Fluoroscopy exposure time was 0.5 minutes. A total of 12 images were recorded. The dose area product was 6.34 mGycm^2. FINDINGS: Satin Finisher image demonstrates normal bowel gas pattern and a few atherosclerotic calcifications along the distal aorta, bilateral iliac and left common femoral arteries. Contrast opacification of the bladder demonstrates mild bladder trabeculation likely related to chronic outlet obstruction. No extralumina l contrast extravasation or vesicoureteral reflux. IMPRESSION: 1. No bladder leak. Reviewed, dictated and finalized at location A. IMPRESSION: 1. No bladder leak.
== END 2020-09-02 06:53 | disposition home or self-care (01) ==
PROVIDERS: Visit Provider Urology
DX: C61 Malignant neoplasm of prostate (principal)
CPT/HCPCS: 51600; 74430; Q9967

== ENCOUNTER 2020-12-27 10:19 | Inpatient (IN) | payer MEDICARE, OTHER, SELFPAY ==
[2020-12-27] VITALS (12 sets, daily range): BP systolic 124–164; BP diastolic 59–85; PULSE 51–61; RESP 12–18; TEMP 36.4–36.8; O2SAT 96–100; BMI 24.0
--- NOTE | ~2020-12-27 | XR_ITS ---
EXAMINATION: XR wrist LT min 3V DATE: 12/27/2020 12:08 INDICATION: Left wrist pain post fall TECHNIQUE: Posteroanterior, ulnar deviation, oblique, and lateral views of the left wrist were obtain ed. COMPARISON: 08/03/2009 FINDINGS: Alignment is normal. No fracture. Severe osteoarthritis at the lunocapitate articulation of the midca rpal joint. Moderate osteoarthritis at the second metacarpophalangeal joint. Mild osteoarthritis at t he first interphalangeal joint. Remaining joint spaces are relatively preserved. Diffuse osteopenia. IMPRESSION: 1. No fracture. 2. 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 Reviewed, dictated and finalized at location A. IMPRESSION: 1. No fracture. 2. 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
--- NOTE | ~2020-12-27 | MR_ITS ---
EXAMINATION: MR brain/brain stem wo/w con EXAM DATE: 12/28/2020 13:07 INDICATION: Vertigo and dizziness. Fall. TECHNIQUE: Magnetic resonance imaging (MRI) of the brain/brain stem obtained without contrast. Sagit ivana T1, axial diffusion, gradient echo (T2*), T1, T2, FLAIR sequences obtained. Patient was then inj ected with 14 cc intravenous Multihance contrast. Axial and coronal postcontrast T1 weighted sequence s obtained. Comparison is made to prior examination from 02/27/2017. FINDINGS: Moderate to large old right temporal lobe infarction and small to moderate old right fronta l lobe infarction. There are no areas of restricted diffusion to suggest acute infarction. There is no acute hemorrhage seen on the T2*, a hemosiderin sensitive sequence. No intraparenchymal brain mas s lesion. There is mild periventricular and subcortical T2/FLAIR signal hyperintensity, nonspecific but probably related to small vessel ischemic disease (microangiopathy). There is mild prominence o f the sulci and ventricles related to cerebral atrophy. There are no extra-axial collections. Flow voids are seen in the cerebral arteries on the T2-weighted sequences consistent with their expected patency. The orbits are unremarkable. Soft tissue is unremarkable. Mild right maxillary opacity. T here are no areas of abnormal enhancement on the post contrast images. And bilateral ethmoid mucoper iosteal thickening. IMPRESSION: 1. No acute intracranial findings. 2. Chronic age related findings. 3. 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 Reviewed, dictated and finalized at location B.
--- NOTE | ~2020-12-27 | XR_ITS ---
EXAMINATION: XR chest 1V portable EXAM DATE: 12/27/2020 12:07 INDICATION: Cough. TECHNIQUE: Portable AP frontal chest x-ray was obtained. Comparison is made to prior examination from 08/15/2020. FINDINGS: Sternotomy wires are present without findings to suggest sternal dehiscence. The lungs are clear. There are no pleural effusions. Cardiomediastinal silhouette is normal. There is no pneumot horax suspected. The bones and soft tissues are unremarkable. IMPRESSION: No acute cardiopulmonary findings. Reviewed, dictated and finalized at location B.
--- NOTE | ~2020-12-27 | CT_ITS ---
EXAMINATION: CT facial bones wo [facility] EXAM DATE: 12/27/2020 13:38 INDICATION: Abnormal head CT, right inferior orbital wall fracture. TECHNIQUE: Spiral CT of the facial bones was acquired in the axial plane without contrast. Coronal reformatted images were also reviewed. The dose-length product (DLP) for this examination was 425.40 mGy-cm. The exposure was tailored according to patient size, and iterative reconstruction (ASIR) wa s used as additional dose reduction technique. Correlation is made to CT head cervical spine from 01/03 FINDINGS: There is acute fracture through the right mandibular coronoid process with only about 2 m m displacement. There is mild inferior displacement of the right orbital inferior wall into the maxil bill sinus, a blowout fracture. There is mild to moderate opacity within the right maxillary sinus co nsistent with acute hemorrhage. Mild bilateral ethmoid mucoperiosteal thickening or blood. The bilateral nasal bone fractures with depression, mild leftward displacement appear chronic but ple ase clinically correlate. This is likely an acute finding The globes and extraocular muscles are unre markable. IMPRESSION: 1. Acute right orbital blowout fracture. 2. Acute right mandibular coronoid process fracture. 3. Depressed displaced nasal bone fractures appear most likely chronic but clinical correlation. 4. Right maxillary sinus hemorrhage. Reviewed, dictated and finalized at location B. IMPRESSION: 1. Acute right orbital blowout fracture. 2. Acute right mandibular coronoid process fracture. 3. Depressed displaced nasal bone fractures appear most likely chronic but cli nical correlation. 4. Right maxillary sinus hemorrhage.
--- NOTE | ~2020-12-27 | CT_ITS ---
EXAMINATION: CT brain wo con, CT cervical spine wo con EXAM DATE: 12/27/2020 12:48 INDICATION: Fall, head injury. TECHNIQUE: Spiral CT of the head was performed without contrast. Axial, coronal and sagittal images were reviewed. Spiral CT of the cervical spine was performed without contrast. Axial images were rev iewed. Coronal and sagittal reformatted images were also reviewed. The dose-length product (DLP) fo r this examination was 681.00 (accession [id number]), 420.30 (accession [id number]) mGy-cm. The exposure was tailored according to patient size, and iterative reconstruction (ASIR) was used as additional dose reduction technique. Comparison is made to prior examination from 02/01/2020. FINDINGS: HEAD CT: There is right inferior orbital wall fracture with mild inferior displacement into the sinus . The inferior rectus muscle also maintains intraorbital course. There is some associated right maxil bill sinus blood. There are bilateral nasal bone fractures with mild leftward displacement which are probably chronic. Old small to moderate-sized right frontal lobe infarction unchanged compared to joe or study. Development of chronic appearing moderate to large infarction in the right temporal, pariet al and frontal region, middle cerebral artery distribution. Punctate old left caudate head lacunar in farction. There is no acute intraparenchymal hemorrhage. No evidence of intraparenchymal brain mass lesion. No evidence of acute infarction. There is mild periventricular and subcortical hypodensity, nonspecific but probably related to small vessel ischemic disease. There is mild prominence of the sulci and ventricles related to cerebral atrophy. There is no mass effect or midline shift. There is no obstructive hydrocephalus suspected. There are no extra-axial collections. There are no acute calvarial fractures. The orbits are unremarkable. Soft tissue is unremarkable. CERVICAL CT: There is no evidence of acute cervical fracture. The odontoid process is intact. Pre-d ens space is normal. Prevertebral soft tissue is normal. There are no soft tissue abnormalities sugar ntified. There is no disc space widening or traumatic vertebral body subluxation suspected. Moderat e to severe cervical spondylosis. A detailed level by level evaluation of spondylosis can be added a s addendum if requested. IMPRESSION: 1. Right inferior orbital wall blowout fracture, appears to be acute given density of small to moder ate right maxillary sinus opacity likely acute blood. 2. 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 3. Mild senescent changes. 4. Advanced cervical spondylosis without fracture. Reviewed, dictated and finalized at location B. IMPRESSION: 1. Right inferior orbital wall blowout fracture, appears to be acute given den sity of small to moderate right maxillary sinus opacity likely acute blood. 2. 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 3. Mild senescent changes. 4. Advanced cervical spondylosis without fracture.
--- NOTE | ~2020-12-27 | US_ITS ---
EXAMINATION: US carotid duplex BI EXAM DATE: 12/28/2020 13:07 INDICATION: Vertigo. TECHNIQUE: Grayscale, color and pulsed Doppler images of the cervical carotid arteries were obtained . The degree of vessel stenosis is placed in one of the following categories: normal, <50% stenosis, 50-69% stenosis, >=70% stenosis but less than near-occlusion, near-occlusion, or occlusion. Note that percent stenosis relative to normal distal artery lumen diameter is indirectly measured from velocit y measurements as described by David, et al. Radiology 2003; [id number]. Comparison is made to prior examination from 03/28/2020. FINDINGS: RIGHT SIDE: Right common carotid artery peak systolic velocity (PSV in cm/s): 81 Right bulb/internal carotid artery peak systolic velocity (PSV in cm/s): 44 Right internal carotid artery end diastolic velocity (EDV in cm/s): 12 Right ICA/CCA peak systolic ratio: 0.5 Right external carotid artery peak systolic velocity (PSV in cm/s): 66 Right vertebral artery antegrade flow: yes There is mild carotid bulb plaque. Velocity and Doppler waveforms in the common and internal carotid arteries is normal. LEFT SIDE: Left common carotid artery peak systolic velocity (PSV in cm/s): 92 Left bulb/internal carotid artery peak systolic velocity (PSV in cm/s): 85 Left internal carotid artery end diastolic velocity (EDV in cm/s): 27 Left ICA/CCA peak systolic ratio: 1.0 Left external carotid artery peak systolic velocity (PSV in cm/s): 94 Left vertebral artery antegrade flow: yes There is moderate carotid bulb plaque. Velocity and Doppler waveforms in the common and internal carotid arteries is normal. IMPRESSION: 1. Less than 50 percent stenosis in the right internal carotid artery. 2. Less than 50 percent stenosis in the left internal carotid artery. > Reviewed, dictated and finalized at location B.
--- NOTE | 2020-12-27 11:50 | ECG_ITS ---
Measurements Intervals [place] Rate: 53 P: 27 OK: 195 QRS: 15 QRSD: 116 T: 93 QT: 404 QTc: 382 Interpretive Statements SINUS BRADYCARDIA POSSIBLE LEFT ATRIAL ENLARGEMENT [-0.1mV P WAVE IN V1/V2] LOW QRS VOLTAGE IN PRECORDIAL LEADS [QRS DEFLECTION < 1.0 mV IN CHEST LEADS] INCOMPLETE RIGHT BUNDLE BRANCH BLOCK ANTEROSEPTAL INFARCT, AGE INDETERMINATE SUBTLE ST ELEVATION IN ANTEROLATERAL LEADS- CONSIDER MYOCARDIAL ANEURYSM BASELINE ARTIFACT- I, II, III ABNORMAL ECG Electronically Signed On 12-27-2020 16:15:55 CDT by Keith Aburto D.O.
--- NOTE | 2020-12-27 12:14 | ED.GENADULT ---
HPI - General Adult General Chief complaint: Neuro Symptoms/Deficit Stated complaint: OFF BALANCE, FALL Time Seen by Provider: 12/27/20 11:52 Source: patient and RN notes reviewed Mode of arrival: ambulatory Limitations: no limitations History of Present Illness HPI narrative: Patient is 70-year-old male who presents from home for evaluation of injuries sustained from a ground-level fall 2 days ago patient was ambulating when he lost his balance and went forward falling injuring the bilateral upper extremities striking the face patient notes that he is felt off balance with his equilibrium since the fall. Patient takes baby aspirin daily. Patient notes he had had recent history of prostate surgery. Patient lives at home by himself. Patient denies any other injuries or complaints. On arrival patient does not appear uncomfortable. Patient notes his tetanus is not up-to-date Related Data Home Medications Medication Instructions Recorded Confirmed Aspirin Low Dose 81 mg PO HS 02/01/20 12/19/20 ezetimibe 10 mg PO HS 02/01/20 12/19/20 rosuvastatin 20 mg PO HS 02/01/20 12/19/20 phenytoin See Rx Instructions .ROUTE .COMPLEX 08/15/20 12/19/20 Allergies Allergy/AdvReac Type Severity Reaction Status Date / Time No Known Allergies Allergy Verified 12/27/20 11:42 Review of Systems Review of Systems: All systems reviewed & are unremarkable except as noted in HPI and below PMFSH Past Medical History Medical History Anxiety Cardiomyopathy Chronic cerebrovascular accident Coronary artery disease Dyslipidemia Seizure disorder Tobacco abuse Surgical History Surgical History H/O foot surgery Left foot surgery due to a fracture around 2004 H/O heart artery stent Patient believes in 2008 H/O total knee replacement R total knee arthroplasty by Dr Campos September 2017 Hx of CABG [address] Cherry 2012 Family History Family History Sibling Diabetes mellitus Father Acute myocardial infarction Other Family history of arthritis Social History Social History Social History: Mr. Ash is , retired from working as a security coordinator, lives at home alone. He smokes two packs of cigarettes per day for the last 50 years. 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 He had a 4-month binge of alcohol abuse relapse again last year but now has been sober since December 2018. Denies other substance use. PCP is at [place] - Dr Floyd Patient designates his friend, Bola Keyes, to be his surrogate decision maker and wishes his code status to be Do Not Resuscitate. Smoking packs per day: 2 Smoking cigarettes per day: 40.0 Years smoked: 50 Smoking pack-years: 100.00 Smoking status: Current every day smoker Tobacco type: cigarettes Second hand tobacco smoke exposure: Yes Additional smoking assessment comments: STATES DOWN TO 7-8 CIGARETTES/DAY FROM 3PK/DAY - STATES SMOKED FOR 50+YRS Alcohol intake: former Drinks per week: 30 Alcohol use details: RECOVERING ALCHOLIC LAST DRINK 12/07/1918 Substance use: former Substance use type: does not use Gender identity (if verbalized by the patient): Male Spiritual care concerns: No Exam Narrative: Exam Narrative: GENERAL: Well-appearing, well-nourished, and in no acute distress. HEAD: Normocephalic, contusion to the right inferior orbital region with abrasions of the face EYES: PERRLA and EOMI. no conjunctival injection ENT: Nares clear, no rhinorrhea or epistaxis. Mucous membranes moist. Oropharynx without tonsillar hypertrophy exudate or other lesions. No trismus or drooling NECK: Supple. No adenopathy or masses. CHEST: Clear to auscultation. No respiratory distress. No wheezes r
--- NOTE | 2020-12-27 12:30 | PC.NURSE ---
PT unable to verify home medications. Pt states his home medication list is no longer accurate.
[2020-12-27 12:47] LABS: Basophils Percent Auto 0.4 % (0.2-1.2); Eosinophils Absolute Auto 0.1 K/mm3 (0-0.3); Eosinophils Percent Auto 1.4 % (0-4.4); Hematocrit 42.6 % (42.0-52.0); Hemoglobin 14.3 g/dL (14.0-18.0); Immature Granulocyte Absolute 0.04 K/mm3 (0.00-0.031); Immature Granulocyte Percent A 0.4 % (0-0.5); Lymphocytes Absolute Auto 1.22 K/mm3 (0.9-3.2); Lymphocytes Percent Auto 12.6 % (18.3-44.2); Mean Corpuscular HGB Conc 33.6 g/dl (32-36); Mean Corpuscular Volume 92.4 fl (80-100); Mean Platelet Volume 10.2 fl (7.4-10.4); Monocytes Absolute Auto 1.2 K/mm3 (0.1-0.6); Neutrophils Absolute Auto 7.1 K/mm3 (1.3-6.7); Neutrophils Percent Auto 73.2 % (45.5-73.1); Platelet Count Result 203 k/mm3 (150-375); Red Blood Count 4.61 M/mm3 (4.6-6.20); Red Cell Distribution Width 13.2 % (11.5-14.5); White Blood Count 9.7 K/mm3 (4.5-10.0)
[2020-12-27 12:54] LABS: INR 0.9; Partial Thromboplastin Time 28.6 SECONDS (22.3-36.8); Prothrombin Time 12.1 Seconds (11.1-14.7)
[2020-12-27 12:55] LABS: Anion Gap 7 mmol/L (8-16); Blood Urea Nitrogen 16 mg/dL (9-20); Calcium 8.8 mg/dL (8.4-10.2); Carbon Dioxide 26 mmol/L (22-30); Chloride 104 mmol/L (98-107); Estimated CRCL calculation 66 ml/min; Estimated Glomerular Filt Rate > 60; Glucose 102 mg/dL (65-110); Potassium 4.1 mmol/L (3.4-5.0); Sodium 137 mmol/L (137-145)
[2020-12-27 13:07] LABS: Troponin I < 0.012 ng/mL (0.000-0.034)
[2020-12-27] MEDS: SODIUM CHLORIDE 0.9% IV 1,000 ML 999 ML IV CONT (13:21)
[2020-12-27 13:23] LABS: Add Urine Microscopic? YES; Appearance Urine Cloudy (Clear); Bilirubin Urine Negative (Negative); Blood Urine 2+ (Negative); Color Urine Yellow (Yellow); Glucose Urine UA Negative (Negative); Ketones Urine Negative (Negative); Leukocyte Esterase Ur 3+ LEU/UL (Negative); Nitrate Urine Negative (Negative); Protein Urine 1+ mg/dL (Negative); Urobilinogen Urine Negative mg/dL (<2.0); WBC Urine >75 /hpf
--- NOTE | 2020-12-27 15:30 | PC.NURSE ---
Report given to ALBERTA Cowart
--- NOTE | 2020-12-27 16:40 | PM.IMHP ---
H&P: HPI History of Present Illness Date/Time: 12/27/20 16:30 Chief Complaint: Off balance, fall 2 days ago. Narrative: This is a 70-year-old male with history of seizures, coronary artery disease, ischemic cardiomyopathy, and history of prostate cancer presented to the emergency department earlier today via private vehicle from home for evaluation of being off balance which caused a fall a couple of days ago. He is not certain exactly when he started to have balance issues but it seems like it has been ongoing for well over 5 days, but he reports that his equilibrium has been much worse since the fall. It does not sound as though he has lightheadedness or dizziness but he also denies overt vertigo. Two days ago he got out of his car, felt off balance, and stumbled forward before falling onto the ground. He put his left wrist out to help stop himself and unfortunately it sounds as though he sprained his wrist. He also hit his head in the fall and in fact was found to have a right orbital blowout fracture with a fracture of the right mandibular coronoid process. Brain CT did not show any acute infarctions but did demonstrated an old right-sided cerebral infarction. Given his ongoing balance issues (it sounds like vertigo) he is being admitted for further workup. He denies headache, auditory and visual changes, focal weakness, and paresthesias. No chest pain, palpitations, dysphagia, or dysarthria. Urinalysis today was abnormal with further questioning he does report urinary frequency, occasional incontinence, and mild dysuria. No lower abdominal or back pain. He has not had fever, chills, or sweats. Review of Systems Review of Systems: Narrative: Twelve systems were reviewed with pertinent positives and negatives as per HPI. No fever, chills, or sweats. No recent cold or flu symptoms. Denies cough and shortness of breath. No orthopnea, PND, or lower extremity edema. He denies nausea, vomiting, and diarrhea. Last seizure was May 22, 2019. Except as documented, all other systems were reviewed and are negative. [facility] Past Medical History Medical History Anxiety Cardiomyopathy Chronic cerebrovascular accident Coronary artery disease Dyslipidemia Prostate cancer Seizure disorder Tobacco abuse Surgical History Surgical History H/O foot surgery Left foot surgery due to a fracture around 2004 H/O heart artery stent Patient believes in 2008 H/O total knee replacement R total knee arthroplasty by Dr Campos September 2017 History of prostatectomy Hx of CABG [address] Cherry 2012 Family History Family History Sibling Diabetes mellitus Father Acute myocardial infarction Other Family history of arthritis Social History Social History Social History: Mr. Ash is , retired from working as a unarmed security officer, lives at home alone. He smokes two packs of cigarettes per day for the last 50 years. 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 He had a 4-month binge of alcohol abuse relapse again last year but now has been sober since December 2018. Denies other substance use. PCP is at [facility] - Dr Floyd Patient designates his friend, Bola Keyes, to be his surrogate decision maker and wishes his code status to be Do Not Resuscitate. Smoking packs per day: 2 Smoking cigarettes per day: 40.0 Years smoked: 53 Smoking pack-years: 106.00 Smoking status: Current every day smoker Tobacco type: cigarettes Second hand tobacco smoke exposure: Yes Additional smoking assessment comments: STATES DOWN TO 7-8 CIGARETTES/DAY FROM 3PK/DAY - STATES SMOKED FOR 50+YRS Alcohol intake: former Drinks per week: 30 Alcohol use details: RECOVERING ALCHOLIC [place]
[2020-12-27] MEDS: LACTATED RINGERS 1,000 ML 125 ML IV CONT (18:45)
--- NOTE | 2020-12-27 18:59 | ADMGEN ---
This patient, Nicola Ash, was admitted to 3 Med Surg Room 312-01. Report received from ALBERTA Cowart. Patient/family oriented to hospital policies and general routines including ID bracelet, bed and alarms, visiting hours, pain management, procedures, bathroom and other care routines, personal items, smoking policy, room service/diet, and visiting hours. Information on how to activate the Rapid Response Team has been discussed. Patient/Family are encouraged to report perceived risks to care and to ask questions if they do not understand what they are told or what they should do.
[2020-12-27] MEDS: FAMOTIDINE 20 MG/2 ML VIAL IV PUSH (21:51)
[2020-12-28] VITALS (8 sets, daily range): BP systolic 117–129; BP diastolic 56–67; PULSE 53–63; RESP 16–20; TEMP 36.3–36.4; O2SAT 95–98
[2020-12-28 06:20] LABS: Basophils Absolute Auto 0.1 K/mm3 (0.0-0.1); Basophils Percent Auto 0.6 % (0.2-1.2); Eosinophils Absolute Auto 0.3 K/mm3 (0-0.3); Eosinophils Percent Auto 3.1 % (0-4.4); Hematocrit 43.1 % (42.0-52.0); Hemoglobin 14.6 g/dL (14.0-18.0); Immature Granulocyte Absolute 0.03 K/mm3 (0.00-0.031); Immature Granulocyte Percent A 0.3 % (0-0.5); Lymphocytes Absolute Auto 0.75 K/mm3 (0.9-3.2); Lymphocytes Percent Auto 7.9 % (18.3-44.2); Mean Corpuscular HGB Conc 33.9 g/dl (32-36); Mean Corpuscular Hemoglobin 31.3 pg (26-34); Mean Corpuscular Volume 92.5 fl (80-100); Mean Platelet Volume 10.4 fl (7.4-10.4); Monocytes Percent Auto 10.6 % (2.6-8.5); Neutrophils Absolute Auto 7.3 K/mm3 (1.3-6.7); Neutrophils Percent Auto 77.5 % (45.5-73.1); Platelet Count Result 199 k/mm3 (150-375); Red Blood Count 4.66 M/mm3 (4.6-6.20); Red Cell Distribution Width 13.2 % (11.5-14.5); White Blood Count 9.5 K/mm3 (4.5-10.0)
[2020-12-28 06:40] LABS: Alanine Aminotransferase 11 U/L (4-50); Albumin Level 3.9 g/dL (3.5-5.1); Alkaline Phosphatase 99 U/L (38-126); Anion Gap 8 mmol/L (8-16); Aspartate Amino Transferase 19 U/L (17-59); Bilirubin,Total 0.4 mg/dL (0.2-1.3); Blood Urea Nitrogen 14 mg/dL (9-20); Calcium 8.9 mg/dL (8.4-10.2); Carbon Dioxide 24 mmol/L (22-30); Chloride 105 mmol/L (98-107); Estimated CRCL calculation 60 ml/min; Estimated Glomerular Filt Rate > 60; Glucose 85 mg/dL (65-110); Potassium 4.2 mmol/L (3.4-5.0); Sodium 137 mmol/L (137-145)
[2020-12-28] MEDS: PHENYTOIN 50 MG CHEW 200 MG PO (09:29)
[2020-12-28 09:48] LABS: Phenytoin Dilantin 25 ug/mL (10-20)
--- NOTE | 2020-12-28 13:42 | PM.IMPN ---
Progress Note: A&P Assessment and Plan (1) Closed blow-out fracture of right orbit: Code(s): S02.31XA - Fracture of orbital floor, right side, initial encounter for closed fracture Status: Acute Assessment and Plan: spoke with Dr. Mcqueen about plan of care and he will see the patient later today or tomorrow - patient has no issues with ocular movement - will likely proceed with conservative treatment - continue PT and OT (2) Fracture of coronoid process of mandible: Code(s): S02.630A - Fracture of coronoid process of mandible, unspecified side, initial encounter for closed fracture Status: Acute Assessment and Plan: as above (3) Fall from ground level: Code(s): W18.30XA - Fall on same level, unspecified, initial encounter Status: Acute Assessment and Plan: continue PT and OT (4) Balance problem: Code(s): R26.89 - Other abnormalities of gait and mobility Status: Acute Assessment and Plan: patient's symptoms are improving but not resolved -MRI negative for new stroke but he does have evidence of a prior stroke - could be due to elevated Dilantin level or UTI - continue PT and OT - consult neurology due to Dilantin level. Will hold these medications until they see him. I appreciate their recommendations (5) Urinary tract infection: Code(s): N39.0 - Urinary tract infection, site not specified Status: Acute Assessment and Plan: continue ceftriaxone, await cultures (6) Tobacco abuse: Code(s): Z72.0 - Tobacco use Status: Chronic Assessment and Plan: discussed smoking cessation (7) History of stroke: Code(s): Z86.73 - Personal history of transient ischemic attack (TIA), and cerebral infarction without residual deficits Status: Acute Assessment and Plan: patient unaware of this -would recommend aspirin at discharge but will wait until Plastic surgery sees him before starting anti-platelet therapy (8) Elevated Dilantin level: Code(s): R78.89 - Finding of other specified substances, not normally found in blood Status: Acute Assessment and Plan: noted to be elevated in the past and today on admission - will repeat tomorrow - hold Dilantin - consult neurology Time Spent With Patient Time with patient: 25 - 35 minutes Subjective Date/time seen: 12/28/20 13:42 Interval history: Pt is a 70-year-old male here for imbalance and dizziness. Patient was seen today and states he is feeling about the same maybe a little better. He continues to have some dizziness. He says he has never had a stroke before that he is aware of. I talked to him about his Dilantin and he says he sees Dr. Blake. The patient states that he had blurry vision yesterday in the ER but he no longer has any blurry vision. He can see in all directions. he has pain to the eye and the jaw. he denies chest pain, shortness of breath, nausea, vomiting, fevers, chills, or abdominal pain. Review of Systems Review of Systems: All systems reviewed & are unremarkable except as noted in HPI and below Exam Narrative: General: Well developed well nourished patient in NAD HEENT: Evidence of fall with ecchymosis to the right eye. Pain to the superior aspect of the eye near the zygomatic bone and top of the mandible Neck: supple Neuro: Alert and oriented x4. cranial nerves 2-12 intact. Left hand strength decreased due to with his sprained wrist. able to do rapid alternating movements and [id number]. Lower extremity strength 5/5 CV:RRR Resp: decreased breath sounds bilaterally, no crackles or wheezing Abd: Soft, non distended. No pain to palpation. Positive bowel sounds Extremities: No swelling, erythema, or pain to palpation. Objective Data Vital Signs Vital Signs: Vital Signs - 24 hr 12/27/20 14:23 12/27/20 14:45 12/27/20 19:15 Temperature
--- NOTE | 2020-12-28 18:42 | WPDCN ---
Assessment and Plan Assessment and plan (1) Fracture of coronoid process of mandible: Code(s): S02.630A - Fracture of coronoid process of mandible, unspecified side, initial encounter for closed fracture Status: Acute (2) Closed blow-out fracture of right orbit: Code(s): S02.31XA - Fracture of orbital floor, right side, initial encounter for closed fracture Status: Acute Additional Plan I believe the nasal deformity largely pre exited his recent fall. The orbital floor and medial wall fractures do not limit his ability to see satisfactorily. This might worsen if senile ptosis obstructs the pupil of the right eye which is slightly recessed. His mandible coronoid fracture will heal in a few weeks. He may prefer a softer diet for a couple of weeks. Surgical intervention is not indicated at this time. HPI Data of Consult Date/Time: 12/28/20 18:42 Requesting Physician: Brisa Penny PA-C Primary Care Provider: EUREKA Consult Narrative Narrative: Nicola Ash is a 70 year old male admitted today after falling outside at his home 3 days ago. He sustained several contusions and has been worked up radiologically for all of those. The significant findings include some facial fractures which include a fracture of the right orbital floor some medial wall in-fracture on that side. There is only a small amount of blood in the maxillary sinus. There was no muscle entrapment. The 2nd fracture is of the nasal bones which is age undetermined. and the 3rd is a left mandibular coronoid fracture without significant displacement. workup has been ongoing today involving an MRI of the brain and carotid ultrasound. so far no cause for falls has been identified. Patient has been heavy drinker much of his life but was able to quit 5 years ago. He continues to smoke a pack of cigarettes a day or more and apparently has had as much as 100 year tobacco smoking history. On this admission is also noted to have a urinary tract infection On my exam today he has alert and provides clear answers to my questions. He has some facial bruising. It appears he has slight enophthalmos on the right. The conjunctiva is not injected. He has full extraocular motion. He is not experiencing diplopia. He wears glasses but feels his vision has been abnormal for years. He is able to read the wall clock from his bed. His nose is crooked. He says there has been a lump on his nose for many years, he is not sure when that might have occurred. he says he is able to breathe normally today, much better than he did at the time of the current injury. he feels some soreness in his jaw but is able to move it reasonably well. Examination of his nasal bones illicits slight tenderness on the right side near the medial orbit. The displaced portion of his nose along the bridge is not tender to digital manipulation. [facility] Past Medical History Medical History (Updated 12/28/20 @ 13:47 by Brisa Penny PA-C) Anxiety Cardiomyopathy Chronic cerebrovascular accident Coronary artery disease Dyslipidemia Prostate cancer Seizure disorder Tobacco abuse Surgical History Surgical History (Updated 12/28/20 @ 01:36 by Mary Werner PA-C) H/O foot surgery Left foot surgery due to a fracture around 2004 H/O heart artery stent Patient believes in 2008 H/O total knee replacement R total knee arthroplasty by Dr Campos September 2017 History of prostatectomy Hx of CABG [address] Cherry 2012 Family History Family History Sibling Diabetes mellitus Father Acute myocardial infarction Other Family history of arthritis Social History Social History Social History: Mr. Ash is , retired from working as a security system analyst, lives at home alone. He smokes two packs of cigarettes per day f
[2020-12-28] MEDS: ROSUVASTATIN 10 MG TABLET 20 MG PO (21:22)
[2020-12-29] VITALS (7 sets, daily range): BP systolic 110–140; BP diastolic 55–74; PULSE 52–68; RESP 18–20; TEMP 36.1–37.1; O2SAT 95–99
--- NOTE | 2020-12-29 01:38 | ECHO_ITS ---
Patient Info Name: Nicola Ash Age: 70 years : 1950 Gender: Male Ht: 68 in Wt: 158 lbs BSA: 1.86 m2 HR: 53 bpm BP: 114 / 66 mmHg Technical Quality: Good Exam Date: 12/29/2020 9:43 AM Exam Location: [facility] Patient Status: Inpatient Admit Date: 12/28/2020 Staff Ordering Physician: Mary Werner PA-C Printmaker: KHUSHI Attending Provider: Sarah Grant PA-C Referring Physician: Debbi KENNEDY; Exam Type: CA echo doppler color flow Study Info Indications - VERTIGO I10 - Essential (primary) hypertension Complete two-dimensional, color flow and Doppler transthoracic echocardiogram is performed. Summary 1. Complete two-dimensional, color flow and Doppler transthoracic echocardiogram is performed. 2. Left ventricular chamber dimension is mildly enlarged. 3. Left ventricular systolic function is normal, estimated at 35-40%. 4. There is mildly increased left ventricular wall thickness. 5. The left ventricular diastolic function is abnormal. 6. Akinetic mid, apical anteroseptum, mid and apical inferoseptum. Hypokinesis of apical, apical lateral, apical inferior leigh. 7. Left atrial chamber dimension is mildly enlarged. 8. There is mild to moderate mitral valve regurgitation. 9. There is mild mitral valve calcification. 10. There is mild tricuspid valve regurgitation. 11. No pulmonary hypertension, estimated pulmonary arterial systolic pressure is 21 mmHg. Left Ventricle Left ventricular chamber dimension is mildly enlarged. Left ventricular systolic function is normal, estimated at 35-40%. There is mildly increased left ventricular wall thickness. Left ventricular septal wall motion is normal. The left ventricular diastolic function is abnormal. Right Ventricle Right ventricular chamber dimension is normal. Right ventricular systolic function is normal. Left Atria Left atrial chamber dimension is mildly enlarged. Right Atria Right atrial chamber dimension is normal. Atrial Septum Intact interatrial septum visualized by color flow imaging. Aortic Valve The aortic valve is trileaflet. There is mild aortic valve sclerosis. There is no aortic valve stenosis. There is no aortic valve regurgitation. Pulmonic Valve The pulmonic valve is normal. There is no pulmonic valve stenosis. There is mild pulmonic regurgitation. Mitral Valve The mitral valve has normal leaflets. There is no mitral valve stenosis. There is mild to moderate mitral valve regurgitation. There is mild mitral valve calcification. Tricuspid Valve The tricuspid valve leaflets are normal. There is no significant tricuspid valve stenosis. There is mild tricuspid valve regurgitation. No pulmonary hypertension, estimated pulmonary arterial systolic pressure is 21 mmHg. Pericardium/Pleural The pericardium appears normal. There is no pericardial effusion. Inferior Vena Cava Normal inferior vena cava with >50% collapse upon inspiration consistent with normal right atrial pressure, 5 mmHg. Aorta The aortic root size at the sinus of Valsalva is normal. The prox ascending aorta size is normal. Left Ventricular Outflow Tract Name Value Normal LVOT 2D LVOT Diameter
--- NOTE | 2020-12-29 08:17 | WPDNEURCNPN ---
Assessment and Plan Additional Plan considering recurrent Dilantin toxicity should be taken off the Dilantin and started on Keppra 750 mg q.12 hours with underlying multiple stroke and also recurrent admission for the Dilantin levels more than therapeutic we might be dealing with a metabolic problem or else inappropriate of medication intake Consult date: 12/29/20 Time Seen: 08:15 HPI: Nicola Ash is a 70 year old male admitted to the hospital for the ataxia in addition to the ongoing history of 1. Seizure disorder 2. Coronary artery disease 3. Ischemic cardiomyopathy 4. History of prostatic cancer reportedly 2 days prior to this admission when he got out of his care he fell off balance and stumble forward before falling onto the ground he placed his left wrist out to help stop himself and unfortunately is splinted his rest and hit his head during the fall and was found to have right orbital blowout fracture with a fracture of the right mandible coronal process brain CT scan did not reveal any intracranial bleed but did document right-sided cerebral infarction was admitted to the hospital for further evaluation for the possibility of vertigo investigation at this time includes the MRI of the brain done on December 28, 2020 which documented moderate to large old right temporal lobe infarction and moderate old right frontal lobe infarction with no evidence of bleed mild periventricular subcortical T2 FLAIR signal hyperintensities related to smoke small vessel ischemic disease with prominence of the sulci and ventricles related to cerebral atrophy carotid Doppler studies less than 50% stenosis bilaterally and facial bone x-rays documented acute right orbital blowout fracture with right mandibular Magy night process fracture as well in addition to depress displaced nasal bone fracture which was most likely chronic and a right maxillary sinus hemorrhage CT scan of the head without bleed and advanced cervical spondylosis without fracture Dilantin level of 25 which were only 10 in August of this year Review of Systems Review of Systems: All systems reviewed & are unremarkable except as noted in HPI and below PMFSH Past Medical History Medical History Anxiety Cardiomyopathy Chronic cerebrovascular accident Coronary artery disease Dyslipidemia Prostate cancer Seizure disorder Tobacco abuse Surgical History Surgical History H/O foot surgery Left foot surgery due to a fracture around 2004 H/O heart artery stent Patient believes in 2008 H/O total knee replacement R total knee arthroplasty by Dr Campos September 2017 History of prostatectomy Hx of CABG [address] Cherry 2012 Family History Family History Sibling Diabetes mellitus Father Acute myocardial infarction Other Family history of arthritis Social History Social History Social History: Mr. Ash is , retired from working as a application security engineer, lives at home alone. He smokes two packs of cigarettes per day for the last 50 years. 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 He had a 4-month binge of alcohol abuse relapse again last year but now has been sober since December 2018. Denies other substance use. PCP is at [place] - Dr Floyd Patient designates his friend, Bola Keyes, to be his surrogate decision maker and wishes his code status to be Do Not Resuscitate. Smoking packs per day: 2 Smoking cigarettes per day: 40.0 Years smoked: 53 Smoking pack-years: 106.00 Smoking status: Current every day smoker Tobacco type: cigarettes Second hand tobacco smoke exposure: Yes Additional smoking assessment comments: STATES DOWN TO 7-8 CIGARETTES/DAY FROM 3PK/DAY - STATES SMOKED FOR 50+YRS Alcohol intake: former Drinks per we
[2020-12-29 15:59] LABS: Phenytoin Dilantin 22 ug/mL (10-20)
--- NOTE | 2020-12-29 16:05 | PM.IMPN ---
Progress Note: A&P Assessment and Plan (1) Balance problem: Code(s): R26.89 - Other abnormalities of gait and mobility Status: Acute Assessment and Plan: patient's symptoms are improving but not resolved. -MRI negative for new stroke but he does have evidence of a prior stroke - could be due to elevated Dilantin level or UTI - continue PT and OT - Talked to Dr. Blake who recommends discontinuing Dilantin and starting Keppra 750 mg Q12hrs. Recommend watching overnight and seeing how the patient does in the morning. If stable can be discharge.d Continue monitoring. I appreciate their recommendations (2) Closed blow-out fracture of right orbit: Code(s): S02.31XA - Fracture of orbital floor, right side, initial encounter for closed fracture Status: Acute Assessment and Plan: Dr. Mcqueen evaluated the patient and did not recommend any treatment at this time. Continue monitoring his vision and stated that his mandible coronoid fracture will heal in a few weeks. - patient has no issues with ocular movement - will likely proceed with conservative treatment - continue PT and OT (3) Fracture of coronoid process of mandible: Code(s): S02.630A - Fracture of coronoid process of mandible, unspecified side, initial encounter for closed fracture Status: Acute Assessment and Plan: as above (4) Fall from ground level: Code(s): W18.30XA - Fall on same level, unspecified, initial encounter Status: Acute Assessment and Plan: continue PT and OT (5) Urinary tract infection: Code(s): N39.0 - Urinary tract infection, site not specified Status: Acute Assessment and Plan: continue ceftriaxone, Cultures growing E. coli with sensitivities to ceftriaxone. (6) Tobacco abuse: Code(s): Z72.0 - Tobacco use Status: Chronic Assessment and Plan: discussed smoking cessation for 3 minutes. States he could quit and is thinking about it after discharge. (7) Seizure disorder: Code(s): G40.909 - Epilepsy, unspecified, not intractable, without status epilepticus Status: Chronic Assessment and Plan: Talked to Dr. Blake. Recommended stopping Dilatin and starting Keppra 750 mg Q12hrs. Continue monitoring. Additional Plan Time Spent With Patient Time with patient: 25 - 35 minutes Subjective Date/time seen: 07/29/21 16:05 Interval history: Pt is a 70-year-old male here for imbalance and dizziness. Date of Servcie 12/29/20: the patient denies any more lightheadedness, dizziness, or vision changes today. He denies any syncopal episodes prior to arrival Or seizure activity. he denies any chest pain, shortness of breath. He denies much pain to his face after his fall. Denies fevers, chills, nausea, vomiting, abdominal pain, diarrhea, leg swelling, calf pain or any other symptoms at this time. Review of Systems Review of Systems: All systems reviewed & are unremarkable except as noted in HPI and below Exam Narrative: General: 70-year-old man sitting up in the chair eating lunch. Appears comfortable. In no acute distress. Head: Ecchymosis noted to right orbital area and nasal bone. Multiple abrasions noted to the right side of his face, nose and forehead. Edentulous. Skin: No jaundice or cyanosis. Good skin turgor. Neck: Full range of motion. Supple. Respiratory: Lungs are clear to auscultation bilaterally. No bony chest wall tenderness. Cardiovascular: The heart has a regular rate and rhythm without murmur. Lower extremities: No lower extremity edema. Distal pulses are easily palpated. No calf tenderness to palpation. Gastrointestinal: The abdomen is soft, nontender and nondistended with active bowel sounds. Psychiatric: Lucid and oriented. Memory intact. Neurologic: No focal deficits. Speech is clear. No facial drooping. Objective Data Vital Signs Vit
[2020-12-29] MEDS: ROSUVASTATIN 10 MG TABLET 20 MG PO (20:41)
[2020-12-29] MEDS: EZETIMIBE 10 MG TABLET PO ×2 (20:41)
[2020-12-29] MEDS: levETIRAcetam Tablet 250 MG, levETIRAcetam Tablet 500 MG 750 MG PO (21:48)
[2020-12-29] MEDS: ASPIRIN 81 MG ENTERIC TABLET PO (21:48)
[2020-12-30] VITALS: PULSE 61
[2020-12-30 04:00] VITALS: PULSE 60
[2020-12-30 05:25] VITALS: BP 124/56; PULSE 62; RESP 17; TEMP 36.7; O2SAT 99
[2020-12-30 06:49] LABS: Phenytoin Dilantin 14 ug/mL (10-20)
[2020-12-30 08:00] VITALS: PULSE 60
[2020-12-30] MEDS: levETIRAcetam Tablet 250 MG, levETIRAcetam Tablet 500 MG 750 MG PO (09:24)
[2020-12-30 12:00] VITALS: PULSE 54
[2020-12-30 14:00] VITALS: BP 123/73; PULSE 59; RESP 24; TEMP 36.8; O2SAT 98
--- NOTE | 2020-12-30 15:00 | PM.DS ---
DS: Admitting Diagnosis Admitting Diagnosis Fall/dizziness DS: Discharge Diagnosis Discharge Diagnosis (1) Balance problem: Code(s): R26.89 - Other abnormalities of gait and mobility Status: Acute Assessment and Plan: This is a 70-year-old male with history of seizures, coronary artery disease, ischemic cardiomyopathy, and history of prostate cancer presented to the emergency department earlier today via private vehicle from home for evaluation of being off balance which caused a fall a couple of days ago. He is not certain exactly when he started to have balance issues but it seems like it has been ongoing for well over 5 days, but he reports that his equilibrium has been much worse since the fall. It does not sound as though he has lightheadedness or dizziness but he also denies overt vertigo. Two days ago he got out of his car, felt off balance, and stumbled forward before falling onto the ground. He put his left wrist out to help stop himself and unfortunately it sounds as though he sprained his wrist. He also hit his head in the fall and in fact was found to have a right orbital blowout fracture with a fracture of the right mandibular coronoid process. Brain CT did not show any acute infarctions but did demonstrated an old right-sided cerebral infarction. Given his ongoing balance issues (it sounds like vertigo) he was admitted for further workup. initial labs showed normal CBC with slight elevation to his neutrophil count, normal coag panel, normal BMP, negative troponin x1. Urinalysis was abnormal suspicious for UTI. Patient was started on IV ceftriaxone for possible urinary tract infection walk pending urine culture results. Urine cultures came back positive for E coli with roberto sensitivity. We also checked the patient's phenytoin level which was elevated at 25. This is patient's 2nd elevation of phenytoin level in the last 7 months. He was evaluated by our neurologist, Dr. Blake who recommended him to stop taking phenytoin and to instead start Keppra 750 mg q.12 hours. The patient did well with therapy and was walking over 100 ft at the standby. He was stable to be discharged home to follow-up with his primary care provider within 1 week. Return to ER warnings given. Continued oral antibiotics for UTI. (2) Closed blow-out fracture of right orbit: Code(s): S02.31XA - Fracture of orbital floor, right side, initial encounter for closed fracture Status: Acute Assessment and Plan: Dr. Mcqueen evaluated the patient and did not recommend any treatment at this time. Continue monitoring his vision and stated that his mandible coronoid fracture will heal in a few weeks. - patient has no issues with ocular movement - will likely proceed with conservative treatment - continue PT and OT (3) Fracture of coronoid process of mandible: Code(s): S02.630A - Fracture of coronoid process of mandible, unspecified side, initial encounter for closed fracture Status: Acute Assessment and Plan: as above (4) Fall from ground level: Code(s): W18.30XA - Fall on same level, unspecified, initial encounter Status: Acute Assessment and Plan: continue PT and OT (5) Urinary tract infection: Code(s): N39.0 - Urinary tract infection, site not specified Status: Acute Assessment and Plan: continue ceftriaxone, Cultures growing E. coli with sensitivities to ceftriaxone. (6) Tobacco abuse: Code(s): Z72.0 - Tobacco use Status: Chronic Assessment and Plan: discussed smoking cessation for 3 minutes. States he could quit and is thinking about it after discharge. (7) Seizure disorder: Code(s): G40.909 - Epilepsy, unspecified, not intractable, without status epilepticus Status: Chronic Assessment and Plan: Talked to Dr. Blaek. Recommended stopping Dilatin and starting Keppra 750 mg Q12hrs.
--- NOTE | 2021-01-01 12:53 | WPDPN ---
Progress Note: A&P Assessment and Plan (1) Fracture of coronoid process of mandible: Code(s): S02.630A - Fracture of coronoid process of mandible, unspecified side, initial encounter for closed fracture Status: Acute (2) Closed blow-out fracture of right orbit: Code(s): S02.31XA - Fracture of orbital floor, right side, initial encounter for closed fracture Status: Acute Additional Plan Pt is stable for discharge from my standpoint. Does not need to follow up with me unless he develops diplopia. Time Spent With Patient Time with patient: less than 15 minutes Subjective Date/time seen: 12/30/20 12:15 Interval history: Pt reports he is comfortable. Says his eye sight has been poor for a long time but he has no diplopia. Has full EOM.Breathes well through nose. Chewing hurts a little but has been able to eat adequately. Objective Data Intake/Output Intake/Output: Intake & Output 12/29/20 12/30/20 12/31/20 01/01/21 23:59 23:59 23:59 23:59 Intake Total 2009 410 Output Total 1969 600 Balance 40 -190 Meds/Results Radiology Results: ITS Impressions Wrist X-Ray 12/27/20 12:12 IMPRESSION: 1. No fracture. 2. 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 Chest X-Ray 12/27/20 12:14 IMPRESSION: No acute cardiopulmonary findings. Cervical Spine CT 12/27/20 12:49 IMPRESSION: 1. Right inferior orbital wall blowout fracture, appears to be acute given density of small to moderate right maxillary sinus opacity likely acute blood. 2. 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 3. Mild senescent changes. 4. Advanced cervical spondylosis without fracture. Head CT 12/27/20 12:49 IMPRESSION: 1. Right inferior orbital wall blowout fracture, appears to be acute given density of small to moderate right maxillary sinus opacity likely acute blood. 2. 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 3. Mild senescent changes. 4. Advanced cervical spondylosis without fracture. Face CT 12/27/20 13:40 IMPRESSION: 1. Acute right orbital blowout fracture. 2. Acute right mandibular coronoid process fracture. 3. Depressed displaced nasal bone fractures appear most likely chronic but clinical correlation. 4. Right maxillary sinus hemorrhage. Carotid Doppler Study 12/28/20 13:15 IMPRESSION: 1. Less than 50 percent stenosis in the right internal carotid artery. 2. Less than 50 percent stenosis in the left internal carotid artery. > Brain MRI 12/28/20 13:20 IMPRESSION: 1. No acute intracranial findings. 2. Chronic age related findings. 3. 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 Quality VTE Prophylaxis VTE prophylaxis: mechanical ordered
== END 2020-12-30 16:50 | disposition home or self-care (01) | DRG 92 ==
LOC: ANHED 15:13 → ANH3MEDSUR 17:16
PROVIDERS: Emergency Medicine Emergency Medical Services; Physician Assistant; Admitting Provider Internal Medicine; Emergency Provider Emergency Medicine; Visit Provider Physician Assistant
DX: R26.89 Other abnormalities of gait and mobility (principal); N39.0 Urinary tract infection, site not specified; S02.31XA Fracture of orbital floor, right side, initial encounter for closed fracture; S02.631A Fracture of coronoid process of right mandible, initial encounter for closed fracture; T42.0X5A Adverse effect of hydantoin derivatives, initial encounter; R42 Dizziness and giddiness; B96.20 Unspecified Escherichia coli [E. coli] as the cause of diseases classified elsewhere; S63.502A Unspecified sprain of left wrist, initial encounter; S02.2XXA Fracture of nasal bones, initial encounter for closed fracture; W18.30XA Fall on same level, unspecified, initial encounter; G40.909 Epilepsy, unspecified, not intractable, without status epilepticus; I25.10 Atherosclerotic heart disease of native coronary artery without angina pectoris; I25.5 Ischemic cardiomyopathy; F41.9 Anxiety disorder, unspecified; F17.210 Nicotine dependence, cigarettes, uncomplicated; Z96.651 Presence of right artificial knee joint; Z85.46 Personal history of malignant neoplasm of prostate; Z86.73 Personal history of transient ischemic attack (TIA), and cerebral infarction without residual deficits; Z95.5 Presence of coronary angioplasty implant and graft; Z95.1 Presence of aortocoronary bypass graft
CPT/HCPCS: 36415; 51701; 70450; 70486; 70553; 71045; 72125; 73110; 80048; 80053; 80185; 81001; 84484; 85025; 85610; 85730; 87077; 87086; 87088; 87186; 93005; 93306; 93880; 96361; 96365; 96366; 96375; 97110; 97116; 97161; 97165; 97535; 99285; A9270; A9577; G0378; J0696; J7030; J7120

== ENCOUNTER 2021-12-12 14:05 | Outpatient (CLI) | payer MEDICARE, OTHER, SELFPAY ==
--- NOTE | ~2021-12-12 | US_ITS ---
EXAMINATION: US art doppler w press LE BI DATE: 12/12/2021 15:32 CDT INDICATION: Claudication. Peripheral arterial disease. TECHNIQUE: Segmental pressures and plethysmographic and Doppler waveforms of the brachial and lower e xtremity arteries were obtained. COMPARISON: None. FINDINGS: Right and left brachial artery pressures of 139 mm Hg and 140 mm Hg, respectively, are concordant (no rmal difference <= 30 mmHg). The right high-thigh pressure index is 1.06 (normal > 1.2). The right ankle-brachial index (RIVERA) is 0 .92 (normal >= 0.9-1.0). The right great toe-brachial index (TBI) is 0.51 (normal >= 0.60). The right lower extremity segmental pressure gradients is increased below the ankle (normal gradients <= 20-30 mmHg between adjacent levels on the same leg or the same levels on the two legs). Arterial Doppler w aveforms are biphasic. The left high-thigh pressure index is 0.84. The left RIVERA is 0.74. The left TBI is 0.36. The left lowe r extremity segmental pressure gradients are increased below the left ankle.. Arterial Doppler wavefo edu are biphasic. IMPRESSION: 1. Diminished left RIVERA and bilateral toe brachial indices, consistent with mild peripheral arterial d isease. Reviewed, dictated and finalized at location A. IMPRESSION: 1. Diminished left RIVERA and bilateral toe brachial indices, consistent with mild peripheral arterial disease.
== END 2021-12-12 14:06 | disposition home or self-care (01) ==
DX: I73.9 Peripheral vascular disease, unspecified (principal)
CPT/HCPCS: 93923

== ENCOUNTER 2023-09-09 08:21 | Outpatient (CLI) | payer MEDICARE, OTHER, SELFPAY ==
[2023-09-09 08:57] LABS: Basophils Absolute Auto 0.1 K/mm3 (0.0-0.1); Basophils Percent Auto 0.9 % (0.2-1.2); Eosinophils Absolute Auto 0.3 K/mm3 (0-0.3); Eosinophils Percent Auto 2.7 % (0-4.4); Hematocrit 47.1 % (42.0-52.0); Hemoglobin 15.2 g/dL (14.0-18.0); Immature Granulocyte Absolute 0.04 K/mm3 (0.00-0.031); Immature Granulocyte Percent A 0.4 % (0-0.5); Lymphocytes Percent Auto 13.1 % (18.3-44.2); Mean Corpuscular HGB Conc 32.3 g/dl (32-36); Mean Corpuscular Hemoglobin 29.7 pg (26-34); Mean Corpuscular Volume 92.2 fl (80-100); Neutrophils Absolute Auto 6.6 K/mm3 (1.3-6.7); Neutrophils Percent Auto 71.9 % (45.5-73.1); Platelet Count Result 172 k/mm3 (150-375); Red Blood Count 5.11 M/mm3 (4.6-6.20); Red Cell Distribution Width 13.8 % (11.5-14.5); White Blood Count 9.2 K/mm3 (4.5-10.0)
[2023-09-09 09:11] LABS: Cholesterol 149 mg/dL (0-200); HDL Direct 59 mg/dL; Triglycerides 69 mg/dL (<150)
[2023-09-09 09:24] LABS: LDL Cholesterol Direct 79 mg/dL
[2023-09-11 13:57] LABS: Levetiracetam Keppra 25.2 mcg/mL (6.0-46.0)
[2023-09-12 06:00] LABS: Red Blood Cell Folate 542 ng/mL RBC (>280)
[2023-09-12 14:20] LABS: Vitamin D 1,25 (OH)2 Total 31 pg/mL (18-72); Vitamin D2 1,25 (OH)2 <8 pg/mL; Vitamin D3 1,25 (OH)2 31 pg/mL
== END 2023-09-09 08:22 | disposition home or self-care (01) ==
LOC: ANHLAB 08:30
PROVIDERS: Visit Provider Psychiatry & Neurology Neurology
DX: E55.9 Vitamin D deficiency, unspecified (principal); F10.21 Alcohol dependence, in remission; G40.909 Epilepsy, unspecified, not intractable, without status epilepticus; I67.9 Cerebrovascular disease, unspecified; R26.89 Other abnormalities of gait and mobility; Z72.0 Tobacco use; Z86.73 Personal history of transient ischemic attack (TIA), and cerebral infarction without residual deficits; Z87.828 Personal history of other (healed) physical injury and trauma; R41.3 Other amnesia; I25.810 Atherosclerosis of coronary artery bypass graft(s) without angina pectoris; S02.30XA Fracture of orbital floor, unspecified side, initial encounter for closed fracture; X58.XXXA Exposure to other specified factors, initial encounter
CPT/HCPCS: 36415; 80061; 80177; 82607; 82652; 82747; 84443; 85025

== ENCOUNTER 2023-09-12 14:25 | Outpatient (CLI) | payer MEDICARE, OTHER, SELFPAY ==
--- NOTE | ~2023-09-12 | US_ITS ---
EXAMINATION: US carotid duplex BI DATE: 09/12/2023 14:58 INDICATION: Dizziness and giddiness TECHNIQUE: Grayscale, color Doppler, and pulsed Doppler images of the cervical carotid arteries were obtained. The degree of vessel stenosis is placed in one of the following categories: normal, <50%, 5 0-69%, >=70% but less than near-occlusion, near-occlusion, or total occlusion. Note that percent sten osis relative to normal distal artery lumen diameter is indirectly measured from velocity measurement s as described by David, et al. Radiology 2003; [id number]. Notes: Normal: Peak systolic velocity <125 centimeters/sec and no plaque <50%. Peak systolic velocity <125 ( EDV <40; ICA/CCA PSV ratio <2.0; used these factors only a tandem lesions or low cardiac output or co ntralateral disease) 50-69 %: PSV 125-230 (EDV 40-100; ratio 2-4) >= 70% but less than near occlusion: PSV greater than 230 (EDV > 100; ratio> 4.0) Near Occlusion: PSV that is variable; markedly narrowed lumen Occlusion: Absent flow on color/spectral Doppler and no lumen on gutierrez scale. COMPARISON: None. FINDINGS: RIGHT: The right common carotid artery (CCA) peak systolic velocity (PSV) is 82 cm/s. The right internal car otid artery (ICA) PSV is 55 cm/s. The right ICA end-diastolic velocity (EDV) is 16 cm/s. The right IC A/CCA PSV ratio is 0.7. The external carotid artery (ECA) PSV is 70 cm/s. There is antegrade flow in the right vertebral artery. LEFT: The left CCA PSV is 113 cm/s. The left ICA PSV is 72 cm/s. The left ICA EDV is 19 cm/s. The left ICA/ CCA PSV ratio is 0.6. The ECA PSV is 96 cm/s. There is antegrade flow in the left vertebral artery. IMPRESSION: 1. Less than 50% stenosis in the right internal carotid artery by sonographic criteria. 2. Less than 50% stenosis in the left internal carotid artery by sonographic criteria. Reviewed, dictated and finalized at location A. IMPRESSION: 1. Less than 50% stenosis in the right internal carotid artery by sonographic lfavia hamilton. 2. Less than 50% stenosis in the left internal carotid artery by sonographic jayda cabral.
== END 2023-09-12 14:26 | disposition home or self-care (01) ==
PROVIDERS: Visit Provider Psychiatry & Neurology Neurology
DX: F10.21 Alcohol dependence, in remission (principal); G40.909 Epilepsy, unspecified, not intractable, without status epilepticus; I67.9 Cerebrovascular disease, unspecified; I69.30 Unspecified sequelae of cerebral infarction; R26.89 Other abnormalities of gait and mobility; R42 Dizziness and giddiness; Z72.0 Tobacco use; Z87.828 Personal history of other (healed) physical injury and trauma
CPT/HCPCS: 93880

== ENCOUNTER 2024-07-30 02:26 | Day surgery (SDC) | payer MEDICARE, OTHER, SELFPAY ==
[2024-07-20 09:50] VITALS: BMI 25.9
--- OUTSIDE RECORDS SUMMARY | 2024-07-30 02:29 | XMS_ITS | Continuity of Care Document ---
Author Name [facility] Organization [facility] Care Team Providers Care Hair Tinter Name Role Phone [facility] Unavailable Unavailable Problems Combined list of problems from Department of Defense and Veterans Affairs facilities. It does not include entries that were removed or entered in error. Problem Status Onset Date Problem Type Date of Resolution Comments Source Eustachian tube disorder Active 07/01/19 25 Diagnosis [facility] Somnambulism Active 07/01/19 25 Diagnosis 0055C[facility] Seizure disorder Active 07/01/19 25 Diagnosis 0055C-375 th [facility] Somnambulism Active 06/30/19 25 Diagnosis 0055C-[facility] H/O: CVA Active 06/26/19 25 Diagnosis 0055A[facility] CAD - Coronary artery disease Active 06/26/19 25 Diagnosis 0055A-[facility] Seizure disorder Active 06/24/19 25 Diagnosis 0055C-[facility] th [facility] Alcohol abuse1 Active Condition Outsi de Source Comment: Counseled, Discussed effects it has on medical conditions and interaction with medications 00[facility] Conductive hearing loss Active Condition 0055C-[facility] Congestive heart failure Active Condition 5C-375 th [facility] Coronary arteriosclerosis2 Active Condition Outside So urce Comment: Overview: s/p CABG in 2013 0055C-375 th [facility] Dyslipidemia Active Condition 00[facility] Erectile dysfunction3 Active Condition Outside Source Comment: Will obtain Testosterone and PSA. 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 [facility] Osteoporosis Active Condition [facility] Peripheral arterial disease Active Condition [facility] Primary malignant neoplasm of prostate Active Condition [facility] Seizure disorder Active Condition [facility] Unspecified macular degeneration Active Condition DoD Malignant neoplasm of prostate Active Condition DoD Serum Prostate-specific Antigen (PSA) Elevated Active Condition DoD Macules And Papules Active Condition Do D Outpatient Physician Consultation Active Condition DoD congestive heart failure Active Condition DoD conditions influencing health status Active Condition DoD alcohol abuse in remission Active Condition DoD osteoporosis Active Condition DoD hyponatremia Inactive Condition DoD Preventive Medicine Established Patient Checkup Adult 40-64 Years Inactive Condition DoD foot pain (soft tissue) Active Condition DoD Laboratory Studies Inactive Condition Do D coronary artery disease Active Condition DoD epilepsy and recurrent seizures Active Condition DoD visit for: refer patient without exam or treatment Active Condition DoD Need For Vaccination Pneumococcal Active Condition DoD visual field defect, central scotoma Active Condition DoD macular degeneration nonexudative Active Condition DoD hypertension systemic Active Condition DoD muscle spasm Inactive Condition DoD routine history and physical adult (18 - 64 yrs) Active Condition DoD 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 DoD male erectile disorder Active Condition Will obtain Testosterone and PSA. If wnl, would also want pt to discuss with Air Breaker Operator to ensure ok to take Levitra or simular medication DoD actinic keratosis Active Condition Cy ro to 2 lesions on Left arm and 1 lesion on right. Pt informed, if lesions return will need bx. DoD astigmatism regular Active Condition Do D Corneal Degeneration Arcus Senilis Active Condition DoD cataract senile nuclear Active Condition DoD preglauc open angle w/ borderline intraocular pressure bilat Active Condition DoD abnormal blood glucose Active Condition he has had normal sugar levels in the past. 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 Repeat in 3 months or sooner if latanya hematuria. DoD glucose intolerance Active Condition Do D hyperlipidemia Active Condition [facility] visit for: screening exam cardiovascular disorders Inactive Condition [facility] Preventive Medicine New Patient Evaluation Adult 40-64 Years Active Condition Will follow up pending labs. Will forward copy labs to Air Breaker Operator [facility] Medications Combined list of outpatient medications from Department of Defense and Veterans Affairs facilities.Medications provided include 1) outpatient medications from the last 15 months, and 2) patient-reported medications. Medication Details Route Status Patient Instructions Prescription Expires Prescription Number Last Dispense Date Ordering Provider Order Date Order Qty Source aflibercept 40 mg/mL intravitrea l solution See Instruct ions, 1 mg every 4 wk, 0 total refill(s ), Eric moss Ordered 2024 0055C-[facility] CHARLENE Howard alendronate 70 mg oral tablet 1 tab(s), Oral, every week, with 6 to 8 ounces plain water, at least 30 minutes before first food, beverage , or medicati on of the day, # 12 tab(s), 3 total refill(s ), Eric moss, [facility] : [email or web address] Oral (given by mouth) Discont inued 06/24/20242024 12.0 0055C-3 [facility] CHARLENE Howard aspirin 81 mg oral delayed release tablet Oral, 1 Unknown, 0 Refill(s ), Take 1 tablet by mouth daily., 0 total refill(s ), Soft Stop Oral (given by mouth) Ordered 2023 0055C-3 [facility] CHARLENE Howard calcium (as carbonate) 600 mg oral tablet 1,500 mg, Oral, 0 Refill(s ), Take 1 tablet (1,500 mg total) by mouth daily., 0 total refill(s ), Soft Stop Oral (given by mouth) Ordered 2023 0055C-3 [facility] CHARLENE Howard cholecalcif rsusell 50 mcg (2000 intl units) oral tablet 1 Unknown, 0 Refill(s ), 1 tablet daily., 0 total refill(s ), Soft Stop Discont inued 06/24/20242024 0055C-3 [facility] CHARLENE Howard EZETIMIBE (ezetimibe) , 10 MG, TABLET, ORAL, [employer] 500 ea. BOTTLE Active [id number] 4 2023 90 Pharmac y Data [employer]ilit y ezetimibe 10 mg oral tablet 3 Refill(s ), TAKE 1 TABLET NIGHTLY AT BEDTIME, 0 total refill(s ), Soft Stop Ordered 2023 0055C-3 [facility] MEDROEL Howard fexofenadin e 180 mg oral tablet 1 tab(s), Oral, Daily, PRN allergy symptoms , # 90 tab(s), 3 total refill(s ), Eric [facility], Pharmacy : [facility] Oral (given by mouth) Ordered 2024 90.0 0055C-3 [facility] CHARLENE Howard LEVETIRACET AM (levetirace hernandes), 750 MG, TABLET, ORAL, [employer], 120 ea. BOTTLE Cancele d [id number] : 2023 0 Pharmac y [employer] t[employer] Service Facilit y LEVETIRACET AM (levetirace hernandes), 750 MG, TABLET, ORAL, [employer], 120 ea. BOTTLE Active [id number] 4 2023 180 Pharmac y [employer] t[employer] Service Facilit y levETIRAcet am 750 mg oral tablet 2 Unknown, Unknown, 2 Refill(s ), 0 total refill(s ), Soft Stop Ordered 2023 0055C-3 [facility] Nitrostat 0.4 mg sublingual tablet 0.4 mg, SubLingu al, 1 Refill(s ), Place 1 tablet (0.4 mg total) under the tongue every 5 (five) minutes as needed for Chest Pain (Maximum of 3 doses, then call 911). Pt knows not to take in the same 36 hour period as sildenaf il tablets, 0 total refill(s ), Soft Stop SubLin gual (disso lve under the tongue ) Ordered 20235C-[address] [place] [address] Lee phenyTOIN 50 mg oral tablet, chewable Oral, 1 Unknown, 0 Refill(s ), Chew 1 tablet by mouth every evening. , 0 total refill(s ), Soft Stop Oral (given by mouth) Discont inued 02/05/202420235C-[address] [place] [address] Lee rosuvastati n 20 mg oral tablet 2 Unknown, Unknown, 2 Refill(s ), 0 total refill(s ), Soft Stop Discont inued 02/05/202420235C-[address] [place] [address] Lee rosuvastati n 20 mg oral tablet 3 Refill(s ), TAKE 1 TABLET NIGHTLY AT BEDTIME, 0 total refill(s ), Soft Stop Ordered 2023-[address] [place] [address] Lee sildenafil 100 mg oral tablet 100 mg, Oral, 3 Refill(s ), Take 1 tablet (100 mg total) by mouth daily as needed for Erectile Dysfunct ion. DO NOT TAKE IN THE SAME 36 HOUR OF TAKING NITROGLY CERIN - IF NECESSAR Y GO TO ER, 0 total refill(s ), Soft Stop Oral (given by mouth) Discont inued 06/24/202420243 [address] [place] [address] Lee Allergies, Adverse Reactions, Alerts Combined list of allergies from Department of Defense and Veterans Affairs facilities. It does not include entries that were removed or entered in error. Substance Category Reaction Severity Reaction type Status Date Reported Comments Source No Known Allergies Drug allergy (disorder) active [address] [place] [address] Medical Group Lee RODRIGEZ ([facility] NO KNOWN ALLERGIES Propensity to adverse reactions to drug Active Unknown Organization Immunizations Combined list of available immunizations from the Department of Defense and Veterans Affairs facilities. Immunization Series Date Given Administered By Site Reaction Lot Number CVX Code Drug Cut Out And Marking Machine Operator Status Comments Source zoster vaccine, inactivated 2022 ROSA StepOut [id number] 187 complet ed Result Comment: Route: Intramusc ular(IM) Manufactu rer: [employer] (SKB) 0055C-[address] [place] [address] Lee pneumococcal 20-valent conjugate vaccine 2022 ROSA StepOut [id number] 216 complet ed Result Comment: Route: Intramusc ular(IM) Manufactu rer: Pfizer, Inc (PFR) 0055C-3 [facility] zoster vaccine recombinant 1 2022 Unknown, Provider [id number] 187 [facility] (SKB) complet ed zoster vaccine recombina nt DoD Pneumococcal conjugate PCV20 1 2022 Unknown, Provider [id number] 216 Pfizer, Inc (PFR) complet ed Pneumococ rocío conjugate PCV20 DoD SARS-CoV-2 (COVID-19) mRNA-Bivalent 2021 JONELLIOTTDBR UBAKER 229 complet ed Result Comment: Route: Unknown Manufactu rer: OTH (MOD) 5C-3 [facility] influenza virus vaccine, inactivated 2021 JONELLIOTTDBR UBAKER 88 complet ed Result Comment: Route: Unknown Manufactu rer: OTH (SEQ) 5C-3 [facility] COVID Vaccine Moderna 2020 JONELLIOTTDBR UBAKER 207 complet ed Result Comment: Unit: Unknown Manufactu rer: Moderna US, Inc. (MOD) 0055C-3 [facility] COVID-19, mRNA, LNP-S, PF, 100 mcg or 50 mcg dose 2020 YANIRA, Solvvy Inc.a US, Inc. (MOD) Not Given COVID-19, mRNA, LNP-S, PF, 100 mcg or 50 mcg dose DoD COVID Vaccine Moderna 2020 JONELLIOTTDBR UBAKER 207 complet ed Result Comment: Unit: Unknown Manufactu rer: Solvvy Inc.a [employer]Bug, Inc. (MOD) 0055C-3 [facility] COVID-19, mRNA, LNP-S, PF, 100 mcg or 50 mcg dose 2020 YANIRA, Solvvy Inc.a [place], Inc. (MOD) Not Given COVID-19, mRNA, LNP-S, PF, 100 mcg or 50 mcg dose DoD tetanus-dipht h toxoids (Td) adult/adol 2019 zzRig ht Arm [id number] 09 sanofi pasteur complet ed tetanus-d iphth toxoids (Td) adult/ado l 01/15/20 Given Ambulat ory Pharmac y zoster vaccine, inactivated 2019 zzLef t Arm [id number] 187 GlaxoSmithKli ne complet ed zoster vaccine, inactivat ed 01/15/20 Given Ambulat ory Pharmac y tetanus and diphtheria toxoids, adsorbed, preservative free, for adult use (2 Lf of tetanus toxoid and 2 Lf of diphtheria toxoid) 1 2019 Unknown, Provider [id number] 09 Sanofi Pasteur ([facility]) complet ed tetanus and diphtheri a toxoids, adsorbed, preservat cynthia free, for adult use (2 Lf of tetanus toxoid and 2 Lf of diphtheri a toxoid) DoD zoster vaccine recombinant 1 2019 Unknown, Provider [id number] [address] [place] [address] (SKB) complet ed zoster vaccine recombina nt DoD influenza, injectable, quadrivalent- pf 2017 150 GlaxoSmithKli ne complet ed influenza , injectabl e, quadrival ent-pf 02/14/18 Given Ambulat ory Pharmac y pneumococcal 13-valent conjugate (PCV13) 2017 IGOR MORTON 133 complet ed Result Comment: Unit: Unknown Manufactu rer: () 0055C-3 [facility] Pneumococcal conjugate PCV 13 2017 ALUL, () Not Given Pneumococ rocío conjugate PCV 13 DoD pneumococcal 13-valent conjugate (PCV13) 2017 IGOR MORTON [id number] 133 complet ed Result Comment: Manufactu rer: Pfizer 0055C-3 [facility] influenza virus vaccine, unspecified 2016 IGOR MORTON [id number] 88 complet ed Result Comment: Manufactu rer: Sanofi Pasteur Inc. (Connaugh t and Pasteur Merieux) 0055C-3 [facility] zoster vaccine live 2013 zzLef t Arm [id number] 121 Merck & Company Inc complet ed zoster vaccine live 04/06/14 Given Ambulat ory Pharmac y zoster vaccine, live 1 2013 Unknown, Provider [id number] 121 Merck (MSD) complet ed zoster vaccine, live DoD pneumococcal polysaccharid e, 23 valent 2012 IGOR MORTON [id number] 33 complet ed Result Comment: Manufactu rer: MERCK and CO. INC 0055C-3 [facility] influenza virus vaccine,split 2007 zzLef t Arm [id number] 15 sanofi pasteur complet ed influenza virus vaccine,s plit 05/10/08 Given Ambulat ory Pharmac y pneumococcal polysaccharid e, 23 valent [facility] [id number] 33 Merck & Company Inc complet ed pneumococ rocío polysacch aride, 23 valent 05/10/08 Given Ambulat ory Pharmac y influenza virus vaccine, split virus (incl. purified surface antigen)-reti red CODE 1 2007 Unknown, Provider [id number] 15 Sanofi Pasteur ([facility]) complet ed influenza virus vaccine, split virus (incl. purified surface antigen)- retired CODE DoD pneumococcal polysaccharid e vaccine, 23 valent 1 2007 Unknown, Provider [id number] 33 Merck (MSD) complet ed pneumococ rocío polysacch aride vaccine, 23 valent DoD influenza virus vaccine,split 2006 [facility] [id number] 15 GlaxoSmithKli ne complet ed influenza virus vaccine,s plit 03/28/07 Given Ambulat ory Pharmac y tetanus, diphtheria, acellular pertu is 2006 [facility] [id number] 115 sanofi pasteur complet ed tetanus, diphtheri a, acellular pertussis 03/28/07 Given Ambulat ory Pharmac y influenza virus vaccine, split virus (incl. purified surface antigen)-reti red CODE 1 2006 Unknown, Provider [id number] 15 [facility]) complet ed influenza virus vaccine, split virus (incl. purified surface antigen)- retired CODE DoD tetanus toxoid, reduced diphtheria toxoid, and acellular pertu is vaccine, adsorbed 1 2006 Unknown, Provider [id number] 115 Sanofi Pasteur ([facility]) complet ed tetanus toxoid, reduced diphtheri a toxoid, and acellular pertussis vaccine, adsorbed DoD tuberculin purified protein derivative 2000 [id number] 96 sanofi pasteur complet ed tuberculi n purified protein derivativ e 11/12/00 Given Ambulat ory Pharmac y Results Combined list of recent chemistry, hematology and other laboratory results from Department of Defense and Veterans Affairs, ranging from 15 months to all on record, depending upon the facility. Order Name Results Value Reference Range Date Interpretation Specimen Comments Source Chemistry Creatinine Level 1.40 mg/dL 0.72 - 1.25 06/26 H -3 [facility] [employer]- [facility] Chemistry eGFR CKD EPI 53 mL/min /1.73_ m2 06/26 Interpretive Data: Estimated Glomerular Filtration Rate (eGFR) calculated using the 2020 Chronic Kidney Disease-Epid emiology (CKD-EPI) Collaboratio n creatinine equation; units of measure are mL/min/1.73 m2. Results are only valid for adults (>=18 years) whose serum creatinine is in steady state. eGFR calculations are not valid for patients with acute kidney injury and for patients on dialysis. Creatinine-b ased estimates of kidney function may also be inaccurate in patients with reduced creatinine generation due to decreased muscle mass (e.g., malnutrition , severe hypoalbumine luis alfredo, sarcopenia, chronic neuromuscula r disease, amputations, severe heart failure or liver disease) and in patients with increased creatinine generation due to increased muscle mass (e.g., muscle builders, anabolic steroids) or increased dietary intake. CKD is diagnosed based on abnormalitie s of kidney structure or function, present for >3 months, with implications for health and disease. CKD is classified and staged based on cause, eGFR and albuminuria (quantified as urine albumin to creatinine ratio). An eGFR >60 mL/min/1.73 m2 in the absence of increased urine albumin excretion or structural abnormalitie s does not CKD. eGFR provides only an estimate of measured GFR within +/- 30% for most patients. As mentioned, nutritional status and muscle mass, among many factors, may lead to inaccuracy in the estimate. Consider ordering the creatinine-c ystatin C panel if better accuracy is needed for clinical decision-alex ing. eGFR (mL/min/1.73 m2) CKD stage Interpretati on Normal 60-89 Mild decrease 45-59 Mild to moderate decrease 30-44 Moderate to severe decrease 15-29 Severe decrease <15 Kidney failure 0055A-3 [facility] [employer] Chemistry Albumin 4.20 g/dL 3.50 - 5.20 02/04 N 0055A-3 [facility] Chemistry Bilirubin Total 0.4 mg/dL 0.2 - 1.2 02/04 N 0055A-3 [facility] Bilirubin Direct 0.1 mg/dL 0.1 - 0.5 02/04 N 0055A-3 [facility] Chemistry Protein Total 7.1 g/dL 6.4 - 8.3 02/04 N 0055A-3 [facility] [place] Chemistry ALT 14 U/L 5 - 55 02/04 N 0055A-[address] [place], [place] [address]GRP- Lee Chemistry AST 11 U/L 5 - 34 02/04 N 0055A-3 [facility] Chemistry Alk Phos 64 U/L 40 - 150 02/04 N 0055A-[address] [place] [address] Chemistry PSA Total <0.05 ng/mL 0.05 - 6.22 02/04 N Interpretive Data: This assay shows no biotin interference in samples with biotin concentratio ns up to 1200 ng/mL. 0117A-A F-ASU-5 9th [facility] Vital Signs Combined list of inpatient and outpatient Vital Signs from Department of Defense and Veterans Affairs, ranging from 12 months to all on record, depending upon the facility. Vital Sign Value Date Comments Source Peripheral Pulse Rate 53 bpm 02/05/2024 14:26:00 0055C-[facility] Blood Pressure Manual Automatic 02/05/2024 14:26:00 0055C-[facility] Systolic Blood Pressure 123 mm[Hg] 02/05/2024 14:26:00 0055C-[facility] Diastolic Blood Pressure 71 mm[Hg] 02/05/2024 14:26:00 0055C-[facility] Respiratory Rate 16 br/min 02/05/2024 14:26:00 0055C[facility] Mean Arterial Pressure, Calc 88 mm[Hg] 02/05/2024 14:26:00 0055C[facility] BP Site Left arm 02/05/2024 14:26:00 0055C -[facility] Temperature Oral 36.8 Roselia 02/05/2024 14:26:00 0055C-[facility] Temperature Oral 36.7 Roselia 07/01/2024 21:19:00 0055C[facility] Mean Arterial Pressure, Calc 85 mm[Hg] 07/01/2024 21:19:00 0055C-[facility] BP Site Left arm 07/01/2024 21:19:00 0055C -[facility] Peripheral Pulse Rate 64 bpm 07/01/2024 21:19:00 0055C-[facility] Respiratory Rate 17 br/min 07/01/2024 21:19:00 0055C-[facility] Blood Pressure Manual Automatic 07/01/2024 21:19:00 0055C[facility] Systolic Blood Pressure 125 mm[Hg] 07/01/2024 21:19:00 0055C[facility] Diastolic Blood Pressure 65 mm[Hg] 07/01/2024 21:19:00 0055C-[facility] Encounters Combined list of: 1) Encounters from Department of Veterans Affairs facilities going backup to the last 18 months, not all VA inpatient encounters are included; 2) Encounters from the Department of [facility] facilities going backup to 280 months. Location Location Details Encounter Type Encounter Number Reason For Visit Attending Provider ADM Date DC Date Status Disposition Source [address] [place] [address] Lee RODRIGEZ [facility] Non-GME FHI2) OUTPATIENT [id number] new pt, hx hpl DOMINICK SAVAGE 10/09 Released w/o Limitations [address] [place] [address] Lee Fuentes [facility]F amily Practic e Non-GME FHI2) [address] [place] [address] Lee Fuentes [facility]) OUTPATIENT [id number] CAMPBELL Razo 10/23 Released w/o Limitations [address] [place] [address] Lee RODRIGEZ [facility])(E lectroc ardiogr am Clinic) [address] [place] [address] Lee [facility])([facility] Non-GME FHI1) OUTPATIENT [id number] follow up labs DOMINICK SAVAGE 11/26 Released w/o Limitations [address] [place] [address] Lee RODRIGEZ [facility])(F amily Practic e Non-GME FHI1) [address] [place] [address] Lee [facility])([facility] Non-GME FHI2) OUTPATIENT [id number] annual check up MATHEUS MAI 10/16 Released w/o Limitations [address] [place] [address] Lee RODRIGEZ [facility])(F amily Practic e Non-GME FHI2) [address] [place] [address] Lee [facility])(Aud iology) OUTPATIENT [id number] HEARING LOSS KESHAWN TAO Whitlock 10/21 Released w/o Limitations [address] [place] [address] Lee B [facility])(A udiolog y) [address] [place] [address] Lee [facility])(Opt ometry) OUTPATIENT [id number] REFRACT CYNTHIA TOBI SALCEDO Chaitanya 10/21 Released w/o Limitations [address] [place] [address] Lee B [facility])(O ptometr y) [address] [place] [address] Lee [facility])(Fam [facility] Non-GME FHI2) TELE CONSULT [id number] WOP calling because had an acciden t HECTOR MAXWELL 10/[address] [place] [address] Lee [facility])(F amily Practic e Non-GME FHI2) [address] [place] [address] Lee [facility])(Car diologyPr ocedure Schedules ) OUTPATIENT [id number] NIXON WORTHINGTON 11/20 Released w/o Limitations [address] [place] [address] Lee [facility])(C ardirusty gyProce dure Schedul es) [address] [place] [address])(Car diology (MTF)) OUTPATIENT [id number] abnorma l stress test NIXON WORTHINGTON 11/21 Released w/o Limitations [address] [place] [address] Lee [facility])(C ardiolo gy ([facility])) [address] [place] [address] Lee [facility])([facility] Non-GME FHI2) TELE CONSULT [id number] Pt needs 2 hour GTT [place] POLLARD 11/[address] [place] [address] Lee [facility])(F amily Practic e Non-GME FHI2) [address] [place], [place] [address]B [facility] Non-GME FHI2) OUTPATIENT [id number] f/u cardiac cath/Dy e pt NIXON ROSS 12/03 Released w/o Limitations [address] [place] [address])(F amily Practic e Non-GME FHI2) [address] [place] [address])(Opt ometry) OUTPATIENT [id number] WELL EYE EXAM [id number] FELA CHAUDHRY 08/17 Released w/o Limitations [address] [place] [address] [place] [facility]O ptometr y) [address] [place], [place] [address]B ([facility])(Opt ometry) OUTPATIENT [id number] 24-2/io p/oct/c ct/dfe f/u FELA CHAUDHRY 08/26 Released w/o Limitations [address] [place] [address] [employer] ([facility])(O ptometr y) [address] [place] [address] [employer] ([facility])(Fam mahamed Practice Non-GME FHI2) OUTPATIENT [id number] new pt VIRGINIA ZEPEDANE 12/02 Released w/o Limitations [address] [place] [address] [employer] ([facility])(F amily Practic e Non-GME FHI2) [address] [place] [address] [employer] ([facility])(Opt ometry) OUTPATIENT [id number] iop/24- 2 f/u FELA CHAUDHRY 12/23 Released w/o Limitations [address] [place] [address] [employer] ([facility])(O ptometr y) [address] [place] [address] [employer] ([facility])([facility] mahamed Practice Non-GME FHI2) TELE CONSULT [id number] meds request - HECTOR Stahl 12/[address] [place] [address] [employer] ([facility])(F amily Practic e Non-GME FHI2) [address] [place] [address] [employer] ([facility])([facility] mahamed Practice Non-GME FHI2) OUTPATIENT [id number] rt side rib pain since seizure on Mar SINTIA MANZO 03/29 Released w/o Limitations [address] [place] [address] [employer] ([facility])(F amily Practic e Non-GME FHI2) [address] [place] [address] [employer] ([facility])(Opt ometry) OUTPATIENT [id number] 24-2/oc t f/u MERLYN DAVALOS 04/21 Released w/o Limitations [address] [place] [address] [employer] ([facility])(O ptometr y) [address] [place] [address] [employer] ([facility])([facility] mahamed Practice Non-GME FHI2) TELE CONSULT [id number] msg left on voice mail-Cl HECTOR Alarcon 04/[address] [place] [address] [employer] ([facility])(F amily Practic e Non-GME FHI2) [address] [place] [address] [employer] ([facility])([facility] mahamed Practice Non-GME FHI1) OUTPATIENT [id number] pcm-Zak mor-Imm unizati on SINTIA MANZO 05/10 Released w/o Limitations [address] [place] [address] [facility])(F amily Practic e Non-GME FHI1) [address] [place] [address] [facility])(Fam mahamed Practice Non-GME FHI1) TELE CONSULT [id number] Referra l/Quest rolando- OVIDIO Chris 07/[address] [place] [address])(F amily Practic e Non-GME FHI1) [address] [place] [address])(Fam mahamed Med Tm B Non-AD BCC) TELE CONSULT [id number] luis pt HECTOR MAWXELL 09/[address] [place] [address])(F amily Med Tm B Non-AD BCC) [address] [place] [address])(Dom e Managemen t) TELE CONSULT [id number] Hospita l Admissi on ANJANA ALBRIGHT Candido 04/[address] [place] [address])(C ase Managem ent) [address] [place] [address])(Sco tt [facility] FAM[facility] Tm Blue) TELE CONSULT [id number] TOBI PETIT 04/[address] [place] [address])(S cott [facility] Tm Blue) [address] [place] [address])(Fam mahamed Med Tm B Non-AD BCC) TELE CONSULT [id number] Luis/ STAT referDARRYL Manning 07/[address] [place] [address])(F amily Med Tm B Non-AD BCC) [address] [place] [address])(Fam mahamed Med Tm B Non-AD BCC) OUTPATIENT [id number] 59 y/o male wellnes s hx of CAD,HTN ,seizur e disorde r SINTIA MANZO 08/19 Released w/o Limitations [address] [place] [address] [facility])(F amily Med Tm B Non-AD BCC) [address] [place] [address])(Fam mahamed Med Tm B Non-AD BCC) TELE CONSULT [id number] Audio notes phoned in to patient , DIO DENNISON 09/[address] [place] [address])(F amily Med Tm B Non-AD BCC) [address] [place] [address])(Fam mahamed Med Tm B Non-AD BCC) TELE CONSULT [id number] Tel- Con, review of lab results with Pt. PCM . DIO Mary 09/[address] [place] [address])(F amily Med Tm B Non-AD BCC) [address] [place] [address])(Fam mahamed Med Tm B Non-AD BCC) TELE CONSULT [id number] Luis- renew referra l:neuro logy-[id number] [phone] EJR MAMIE GERONIMO 03/[address] [place] [address])(F amily Med Tm B Non-AD BCC) [address] [place] [address])(War rior Op Med Cln Tm A Ad) TELE CONSULT [id number] Luis- Pt. needs stst referra l for Neuro. MAMIE GERONIMO 11/[address] [place] [address])(W arrior Op Med Cln Tm A Ad) [address] [place] [address])(War rior Op Med Cln Tm A Ad) TELE CONSULT [id number] renew referra l to Cardiol ogist Dr Cherry has appt on Jan 29 31 1 [id number] MAMIE GERONIMO 01/[address] [place] [address])(W arrior Op Med Cln Tm A Ad) [address] [place] [address])(War rior Op Med Cln Tm A Ad) OUTPATIENT [id number] overall phy...6 [id number] SINTIA MANZO 02/12 Released w/o Limitations [address] [place] [address])(W arrior Op Med Cln Tm A Ad) [address] [place] [address])(War rior Op Med Cln Tm A Ad) TELE CONSULT [id number] [facility] Luis. Inform patient of radiolo gy results . Continu e with medicat ions and MAMIE GERONIMO 02/[address] [place] [address])(W arrior Op Med Cln Tm A Ad) [address] [place] [address])(War rior Op Med Cln Tm A Ad) TELE CONSULT [id number] Lab Result Rad. Result Review results with riccardo MAMIE GERONIMO 02/[address] [place] [address])(W arrior Op Med Cln Tm A Ad) [address] [place] [address])(Sco tt Internal Medicine Tm) OUTPATIENT [id number] walk-in RENA BAUTISTA Mary 03/28 Released w/o Limitations [address] [place] [address])(S cott Interna l Medicin e Tm) [address] [place] [address])(War rior Op Med Cln Tm A Ad) TELE CONSULT [id number] Lab Result Review results with patient MAGUIRETAE SHELLEYChante Whitney 03/[address] [place] [address])(W arrior Op Med Cln Tm A Ad) [address] [place] [address])(Dom e Managemen t) OUTPATIENT [id number] Notes Entered by: TOBI MOELLER 27 Jul 2011 1048 ------- ------- ------- ------- -- CC-post hosp follow up TOBI MOELLER 07/27 Released with Work/Duty Limitations [address] [place] [address])(C ase Managem ent) [address] [place] [address])(War rior Op Med Cln Tm A Ad) OUTPATIENT [id number] f/u for hospita lizatio n [phone] SINTIA MANZO 08/02 Released w/o Limitations [address] [place] [address])(W arrior Op Med Cln Tm A Ad) [address] [place] [address])(War rior Op Med Cln Tm A Ad) TELE CONSULT [id number] Notes Entered by: MAURA TROTTER 08 Aug 2011 1142 ------- ------- ------- ------- -- Multipl e ref/Zak juares 667.381 6/mnm DOMINICK MAGUIRE 08/[address] [place] [address])(W arrior Op Med Cln Tm A Ad) [address] [place] [address])(Dom e Managemen t) OUTPATIENT [id number] Notes Entered by: TOBI MOELLER 30 Nov 2011 0904 ------- ------- ------- ------- -- CC-Hosp Notific [facility] TOBI MOELLER 11/[address] [place] [address])(C ase Managem ent) [address] [place] [address])(Dom e Managemen t) OUTPATIENT [id number] Notes Entered by: TOBI MOELLER 10 Dec 2011 1253 ------- ------- ------- ------- -- CC-f/u for hospita lizati n [phone] TOBI MOELLER 12/09 Released with Work/Duty Limitations [address] [place] [address])(C ase Managem ent) [address] [place] [address])(Dom e Managemen t) TELE CONSULT [id number] Notes Entered by: TOBI MOELLER 26 Dec 2011 0948 ------- ------- ------- ------- -- CC-Hosp Notific TOBI Khan 12/[address] [place] [address])(C ase Managem ent) [address] [place] [address])(Ismael randall Op Med Cln Tm A Ad) OUTPATIENT [id number] general physica l [id number] BERRY FITZGERALD 01/09 Released w/o Limitations [address] [place] [address])(W arrior Op Med Cln Tm A Ad) [address] [place] [address])(Dom e Managemen t) TELE CONSULT [id number] Notes Entered by: TOBI MOELLER 11 Jan 2012 1538 ------- ------- ------- ------- -- CC-Care Coord TOBI MOELLER 01/[address] [place] [address])(C ase Managem ent) [address] [place] [address])(War rior Op Med Cln Tm A Ad) OUTPATIENT [id number] MTF Amna'd APPT really at 1020-we llness exam per PCM [phone] MAURO SHAH 01/31 Released w/o Limitations [address] [place] [address])(W arrior Op Med Cln Tm A Ad) [address] [place] [address])(Dom e Managemen t) TELE CONSULT [id number] Notes Entered by: ROSIE NICHOLS 26 Jun 2012 1136 ------- ------- ------- ------- -- CC: ROSIE Conklin 06/[address] [place] [address])(C ase Managem ent) [address] [place] [address])(Dom e Managemen t) TELE CONSULT [id number] Notes Entered by: ROSALIO PIERCE 02 Jul 2012 1744 ------- ------- ------- ------- -- Care [facility]-- samuel cordovai on ROSALIO PIERCE 07/[address] [place] [address])(C ase Managem ent) [address] [place] [address])(Dom e Managemen t) TELE CONSULT [id number] Notes Entered by: ROSIE NICHOLS 07 Jul 2012 1045 ------- ------- ------- ------- -- CC: ROSIE Conklin 07/[address] [place] [address])(C ase Managem ent) [address] [place] [address])(War rior Op Med Cln Tm A Ad) TELE CONSULT [id number] Notes Entered by: GABO ANDERSON 08 Jul 2012 0924 ------- ------- ------- ------- -- Network Results -CARDIO LOGY - 07/03/12 BERRY FITZGERALD 07/[address] [place] [address])(W arrior Op Med Cln Tm A Ad) [address] [place] [address])(War rior Op Med Cln Tm A Ad) TELE CONSULT [id number] Notes Entered by: GABO ANDERSON 16 Jul 2012 0837 ------- ------- ------- ------- -- Network Results -CARDIO THORACI C - 07/03/12 BERRY FITZGERALD 07/[address] [place] [address])(W arrior Op Med Cln Tm A Ad) [address] [place] [address])(Sco tt [facility] Team 3) TELE CONSULT [id number] Notes Entered by: RL COPE 06 Aug 2012 1526 ------- ------- ------- ------- -- Dee rey [facility] Dr Jasmin joel ph [phone] DOMINICK MAGUIRE 08/[address] [place] [address])(S cott [facility] Team 3) [address] [place] [address])(Fam mahamed Med Tm B Non-AD BCC) TELE CONSULT [id number] Notes Entered by: GABO ANDERSON 09 Dec 2012 1055 ------- ------- ------- ------- -- Network Results - CARDIOL OGY 11/25/12 SORAYA WOOD 12/[address] [place] [address])(F amily Med Tm B Non-AD BCC) [address] [place] [address])(War rior Op Med Cln Tm A Ad) TELE CONSULT [id number] Notes Entered by: JEROME REDDY 24 Mar 2013 1220 ------- ------- ------- ------- -- Network results - Neurolo gy - 3 BRIANNA BAEZ 03/[address] [place] [address])(W arrior Op Med Cln Tm A Ad) [employer] [facility])(War rior Op Med Cln Tm A Ad) TELE CONSULT [id number] Notes Entered by: OANH CRESPO 28 Jan 2014 1509 ------- ------- ------- ------- -- Renew referra OANH Lujan 01/28 Referred for Appointment [employer] [facility])(W arrior Op Med Cln Tm A Ad) [employer] [facility])(War rior Op Med Cln Tm A Ad) OUTPATIENT [id number] annual check-u p BRIANNA BAEZ 04/05 Released w/o Limitations [employer] [facility])(W arrior Op Med Cln Tm A Ad) [employer] [facility])(War rior Op Med Cln Tm A Ad) TELE CONSULT [id number] BRIANNA BAEZ 04/15 [employer] [facility])(W arrior Op Med Cln Tm A Ad) [employer] [facility])(War rior Op Med Cln Tm A Ad) OUTPATIENT [id number] fu on labs BRIANNA BAEZ 04/21 Released w/o Limitations [employer] [facility])(W arrior Op Med Cln Tm A Ad) [employer] [facility])(War rior Op Med Cln Tm A Ad) TELE CONSULT [id number] DIO DENNISON 05/07 Referred for Appointment [employer] B [facility])(W arrior Op Med Cln Tm A Ad) [employer] [facility])(War rior Op Med Cln Tm A Ad) TELE CONSULT [id number] Notes Entered by: JIM GASTON 11 May 2014 0909 ------- ------- ------- ------- -- Missed maria de jesus roldan ng results Kieran Patel ext [phone] BRIANNA BAEZ 05/[address] [place] [address])(W arrior Op Med Cln Tm A Ad) [address] [place] [address])(Med ication Refill Clinic) TELE CONSULT [id number] Notes Entered by: MAURA TROTTER 08 Jul 2014 1132 ------- ------- ------- ------- -- Med renewal /kieran dietrich/ ZACH CHAPA 07/[address] [place] [address])(Devonte arellano on Refill Clinic) [address] [place] [address])(Fam mhaamed Med Tm B Non-AD BCC) TELE CONSULT [id number] Notes Entered by: EDGAR CASPER 27 Aug 2014 1022 ------- ------- ------- ------- -- Lab results DIO DENNISON 08/27 Referred for Appointment [address] [place] [address])(F amily Med Tm B Non-AD BCC) [address] [place] [address])(War rior Op Med Cln Tm A Ad) TELE CONSULT [id number] Notes Entered by: GABO ANDERSON 30 Aug 2014 1433 ------- ------- ------- ------- -- Network Results - CARDIOL OGY- 08/24/14 HARSHA MAGANA 08/[address] [place] [address])(W arrior Op Med Cln Tm A Ad) [address] [place] [address])(Fam mahamed Med Tm B Non-AD BCC) TELE CONSULT [id number] Notes Entered by: RL COPE 03 Nov 2014 1353 ------- ------- ------- ------- -- Network results - Pulmona antonio/Jun Copeland 2014 JÚNIOR SALAZAR 11/[address] [place] [address] [facility])(F amily Med Tm B Non-AD BCC) [address] [place] [address] [facility])(War rior Op Med Cln Tm A Ad) OUTPATIENT [id number] Annual Physica l [phone] 6 HARSHA MAGANA 04/06 Released w/o Limitations [address] [place] [address] [facility])(W arrior Op Med Cln Tm A Ad) [address] [place] [address] [facility])(Fam mahamed Med Tm B Non-AD BCC) TELE CONSULT [id number] Notes Entered by: SAULO COSME 07 Apr 2015 1057 ------- ------- ------- ------- -- Lab results /Urolog y DAREN Coto 04/07 Referred for Appointment [address] [place] [address])(F amily Med Tm B Non-AD BCC) [address] [place] [address])(War rior Op Med Cln Tm A Ad) TELE CONSULT [id number] Notes Entered by: JEROME REDDY 05 Sep 2015 1549 ------- ------- ------- ------- -- Network Results - Neurolo gy 6 HARSHA MAGANA 09/[address] [place] [address] [facility])(W arrior Op Med Cln Tm A Ad) [address] [place] [address] [facility])(Fam mahamed Med Tm B Non-AD BCC) TELE CONSULT [id number] Notes Entered by: GABO ANDERSON 06 Sep 2015 1534 ------- ------- ------- ------- -- Network Results - CARDIOL OGY- 08/29/15 [facility] HARSHA MAGANA 09/[address] [place] [address] [facility])(F amily Med Tm B Non-AD BCC) [address] [place] [address])(War rior Op Med Cln Tm A Ad) OUTPATIENT [id number] General Check up/meds /labs HARSHA MAGANA 09/12 Released w/o Limitations [address] [place] [address])(W arrior Op Med Cln Tm A Ad) [address] [place] [address])(War rior Op Med Cln Tm A Ad) TELE CONSULT [id number] Notes Entered by: ROMI STAUFFER 23 Dec 2015 0744 ------- ------- ------- ------- -- Network Results -GASTRO ENTEROL OGY 12/19/15 COLONOS COPY [facility] ESAURADHAMOISES BEJARANO. 12/[address] [place] [address])(W arrior Op Med Cln Tm A Ad) [address] [place] [address])(War rior Op Med Cln Tm A Ad) TELE CONSULT [id number] Notes Entered by: ROMI STAUFFER 28 Dec 2015 0920 ------- ------- ------- ------- -- Network Results -GASTRO ENTEROL OGY 12/19/15 FINAL REPORT DEMOISES CABRERA. 12/[address] [place] [address])(W arrior Op Med Cln Tm A Ad) [address] [place] [address])(War rior Op Med Cln Tm A Ad) TELE CONSULT [id number] Notes Entered by: ROMI STAUFFER 24 Jan 2016 0838 ------- ------- ------- ------- -- Network Results -GASTRO ENTEROL OGY 11/21/15 [facility] HARSHA MAGANA 01/[address] [place] [address])(W arrior Op Med Cln Tm A Ad) [address] [place] [address])(War rior Op Med Cln Tm A Ad) TELE CONSULT [id number] Notes Entered by: TEODORO CLEARY 13 Aug 2016 1034 ------- ------- ------- ------- -- Liz white/Refe rral MADDIE, KAITLYN J 08/[address] [place] [address] Group [facility])(W arrior Op Med Cln Tm A Ad) [address] [place] [address] [facility])(War rior Op Med Cln Tm A Ad) OUTPATIENT [id number] annual HARSHA Carrera 08/24 Released w/o Limitations [address] [place] [address] [facility])(W arrior Op Med Cln Tm A Ad) [address] [place] [address] [facility])(War rior Op Med Cln Tm A Ad) TELE CONSULT [id number] Notes Entered by: SAULO COSME 27 Aug 2016 1333 ------- ------- ------- ------- -- Lab results CECILIA SORIANO 08/27 Referred for Appointment [address] [place] [address])(W arrior Op Med Cln Tm A Ad) [address] [place] [address])(War rior Op Med Cln Tm A Ad) TELE CONSULT [id number] Notes Entered by: ROMI STAUFFER 11 Sep 2016 1133 ------- ------- ------- ------- -- Network Results -NEUROL OGY 08/20/16 [facility] CARL MADDEN 09/[address] [place] [address] [facility])(W arrior Op Med Cln Tm A Ad) [address] [place] [address] [facility])(War rior Op Med Cln Tm A Ad) TELE CONSULT [id number] Notes Entered by: ROMI STAUFFER 18 Sep 2016 1409 ------- ------- ------- ------- -- Network Results -CARDIO LOGY 08/27/16 HARSHA TAM 09/[address] [place] [address] [facility])(W arrior Op Med Cln Tm A Ad) [address] [place] [address] [facility])(War rior Op Med Cln Tm A Ad) OUTPATIENT [id number] General check up for possibl e R knee replace ment [id number] HARSHA MAGANA Chinyere 06/25 Released w/o Limitations [address] [place] [address])(W arrior Op Med Cln Tm A Ad) [address] [place] [address])(War rior Op Med Cln Tm A Ad) TELE CONSULT [id number] Notes Entered by: AMOS ARDON 15 Jul 2017 1130 ------- ------- ------- ------- -- Surgica candido cervantes/Tylor mcnamara 18.667. 3816/cl m KAITLYN PERKINS 07/[address] [place] [address])(W arrior Op Med Cln Tm A Ad) [address] [place] [address])(War rior Op Med Cln Tm A Ad) TELE CONSULT [id number] Notes Entered by: Chinyere STRATTON 30 Jul 2017 1540 ------- ------- ------- ------- -- Network results Cardiol ogy 018 ALD HARSHA MAGANA A 07/[address] [place] [address])(W arrior Op Med Cln Tm A Ad) [address] [place] [address])(War rior Op Med Cln Tm A Ad) TELE CONSULT [id number] Notes Entered by: DEBORA LEE 08 Aug 2017 1227 ------- ------- ------- ------- -- Network results Cardiol ogy 8 ANA CHAKRABORTY 08/[address] [place] [address])(W arrior Op Med Cln Tm A Ad) [address] [place] [address])(Dom e Jesse t) TELE CONSULT [id number] Notes Entered by: Litzy EARLY 03 Sep 2017 1016 ------- ------- ------- ------- -- Hospita l follow up TIFFANY EARLY Devonte 09/03 Referred for Appointment [address] [place] [address] Group [facility])(C ase Managem ent) [facility])([facility] Internal Medicine ) OUTPATIENT [id number] left foot pain getting worse CECILIA ALEXANDRE Viky 04/21 Released w/o Limitations [address] [place] [address])(S cott Interna l Medicin e Tm) [address] [place] [address])([facility] Internal Medicine ) TELE CONSULT [id number] Notes Entered by: ED COVARRUBIAS 07 Oct 2019 1410 ------- ------- ------- ------- -- Neurolo gy Referra candido Request / Geremias s/ - NARGIS Morelos 10/06 Other Not Elsewhere Classified [address] [place] [address])(S cott Interna l Medicin e Tm) [address] [place] [address])([facility] Internal Medicine ) TELE CONSULT [id number] Notes Entered by: FREDO PUGH 28 Oct 2019 1328 ------- ------- ------- ------- -- Referra candido request /Cliff /618. [phone] 6 NARGIS DUNNE 10/27 Other Not Elsewhere Classified [address] [place] [address])(S cott Interna l Medicin e Tm) [address] [place] [address])([facility] Internal Medicine ) OUTPATIENT [id number] VIRTUAL - Annual exam MATTHEW MORALES 01/12 Released w/o Limitations [address] [place] [address])(S cott Interna l Medicin e Tm) [address] [place] [address])([facility] Internal Medicine ) TELE CONSULT [id number] Notes Entered by: ST LES RAZO 13 Jan 2020 1521 ------- ------- ------- ------- -- Network results Neurolo gy 020 MATTHEW POON 01/[address] [place] [address] [facility])(S cott Interna l Medicin e Tm) [address] [place] [address] [facility])([facility] Internal Medicine ) TELE CONSULT [id number] Notes Entered by: TIFFANIE LITTLE 25 Jan 2020 1601 ------- ------- ------- ------- -- Network Results OPTOMET RY 0 MATTHEW MORALES 01/[address] [place] [address])(S cott Interna l Medicin e Tm) [address] [place] [address] [facility])([facility] Internal Medicine ) OUTPATIENT [id number] Follow up from previou s visit MATTHEW MORALES 02/10 Released w/o Limitations [address] [place] [address])(S cott Interna l Medicin e Tm) [address] [place] [address] [facility])(Car e Coordinat ion Clinic) TELE CONSULT [id number] Notes Entered by: Litzy EARLY 15 Feb 2020 1455 ------- ------- ------- ------- -- Contact w/pt TIFFANY EARLY 02/14 Other Not Elsewhere Classified [address] [place] [address] [facility])(C are Coordin ation Clinic) [address] [place] [address] [facility])(Car e Coordinat ion Clinic) TELE CONSULT [id number] Notes Entered by: Litzy EARLY 17 Feb 2020 0845 ------- ------- ------- ------- -- Pt contact TIFFANY EARLY 02/16 Other Not Elsewhere Classified [address] [place] [address])(C are Coordin ation [facility]) [address] [place], [place] [address]B [facility])([facility] Internal Medicine ) TELE CONSULT [id number] Notes Entered by: Aristides HARTMAN 22 Feb 2020 0936 ------- ------- ------- ------- -- Express scripts x 1 /NARGIS Ramires 02/21 Medication Refill Forwarded [address] [place] [address])(S cott Interna l Medicin e Tm) [address] [place] [address])(Car e Coordinat ion Clinic) TELE CONSULT [id number] Notes Entered by: Litzy EARLY 26 Feb 2020 1445 ------- ------- ------- ------- -- Pt contact TIFFANY EARLY 02/25 Other Not Elsewhere Classified [address] [place] [address])(C are Coordin ation [facility]) [address] [place] [address])([facility]co Internal Medicine ) TELE CONSULT [id number] Notes Entered by: TIFFANIE LITTLE 29 Feb 2020 1014 ------- ------- ------- ------- -- Network Results UROLOGY 0 MATTHEW MORALES 02/[address] [place] [address] [facility])(S cott Interna l Medicin e Tm) [address] [place] [address])(Car e Coordinat ion Clinic) TELE CONSULT [id number] Notes Entered by: Litzy EARLY 29 Feb 2020 1024 ------- ------- ------- ------- -- Provide r notes; needs PCM to confirm med order w/Expre ss Scripts TIFFANY EARLY 02/28 Other Not Elsewhere Classified [address] [place] [address] [facility])(C are Coordin ation [facility] [facility] [address] [place] [address])([facility] e [facility]ordin[facility] ion [facility]) TELE CONSULT [id number] Notes Entered by: Litzy EARLY 29 Feb 2020 1101 ------- ------- ------- ------- -- Podiatr y note TIFFANY EARLY 02/28 Other Not Elsewhere Classified [address] [place] [address])(C are Coordin ation [facility]) [address] [place] [address])([facility]) TELE CONSULT [id number] Notes Entered by: Litzy EARLY 15 Mar 2020 1315 ------- ------- ------- ------- -- Pt contact TIFFANY EARLY 03/15 Other Not Elsewhere Classified [address] [place] [address])([facility] [address] [place] [address])(Car e Coordinat ion [facility]) TELE CONSULT [id number] 5 Notes Entered by: Litzy EARLY 18 Mar 2020 1512 ------- ------- ------- ------- -- Neurolo gy notes TIFFANY EARLY 03/18 Other Not Elsewhere Classified [address] [place] [address])(C are Coordin ation [facility]) [address] [place] [address])(Car e Coordinat ion [facility]) TELE CONSULT [id number] Notes Entered by: Litzy EARLY 30 Mar 2020 1321 ------- ------- ------- ------- -- Doppler studies complet ed TIFFANY EARLY 03/30 Other Not Elsewhere Classified [address] [place] [address])([facility] [address] [place] [address] [facility])([facility] Internal Medicine Tm) OUTPATIENT [id number] exam,[phone] phone call appt STEPHANIE DARBY 07/21 Released w/o Limitations [address] [place] [address] [facility])(S cott Interna l Medicin e Tm) [address] [place] [address] [facility])([facility]) OUTPATIENT [id number] 5 F2F Physica l for catarac t surgery MATTHEW MORALES 08/10 Released w/o Limitations [address] [place] [address] [facility])(S cott Interna l Medicin e Tm) [address] [place] [address])([facility] Internal Medicine Tm) TELE CONSULT [id number] 7 Notes Entered by: MIGUEL ANGEL GREEN 12 Dec 2021 1308 ------- ------- ------- ------- -- Please review provide r results /LEO/ JORGE LUIS Tirado 12/[address] [place] [address])(S cott Interna l Medicin e Tm) [address] [place] [address])([facility] Internal Medicine ) TELE CONSULT [id number] Notes Entered by: Aristides HARTMAN 13 Jul 2022 1530 ------- ------- ------- ------- -- PLEASE REVIEW PROVIDE R RESULTS IN PABLO DILLARD 07/[address] [place] [address])(S cott Interna l Medicin e Tm) [address] [place] [address])([facility] Internal Medicine ) TELE CONSULT [id number] 7 Notes Entered by: LATRICE BEARD 24 Jul 2022 1028 ------- ------- ------- ------- -- Test Result Inquiry /Oly/ RACHEL ROBERTSON 07/24 Other Not Elsewhere Classified [address] [place] [address])(S cott Interna l Medicin e Tm) [address] [place] [address])([facility] Internal Medicine ) OUTPATIENT [id number] F2F - annual physica candido, PABLO ALDRIDGE 08/27 Released w/o Limitations [address] [place] [address])(S cott Interna l Medicin e Tm) [address] [place] [address])([facility] Internal Medicine ) TELE CONSULT [id number] Notes Entered by: Fuentes ALDRIDGE 07 Sep 2022 1424 ------- ------- ------- ------- -- Results discuss PABLO Hale 09/[address] [place] [address] [employer] [facility])(S cott Interna l Medicin e Tm) [facility] Outpatient Encounter [id number] 02/21 [facility] Between Visit [id number] 05/21 Discharge Disposition: Home or Self Care - [address] [place] [address] - [facility] Clinic [id number] Unspeci fied convuls ions,Sl eepwalk ing [somnam bulism] IGOR ALBAWILMAR 06/24 Discharge Disposition: Home or Self Care - [address] [place] [address] - [facility] Outpatient [id number] IGOR PIRES 06/26 Discharge Disposition: Home or Self Care - [address] [place] [address] - [facility] Outpatient [id number] Persona l history of other disease s of the circula tory system, 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 IGOR PIRES 06/26 Discharge Disposition: Home or Self Care - [address] [place] [address] - [facility] Clinic [id number] Unspeci fied Eustach bijal tube disorde r, unspeci fied ear,Sle epwalki ng [somnam bulism] ,Unspec ified convuls ions PABLO CKRUSE 07/01 Discharge Disposition: Home or Self Care - [address] [place] [address] Procedures Combined list of: 1) Procedures from Department of Veterans Affairs facilities going back up to thelast 18 months, not all VA non-surgical procedures are included; 2) All procedures from the Department of Defense facilities. Procedure Procedure Type Code Date Perfomer Comments Sourc e No data available for this section Ambulatory Pharmacy TELE ASSESS & MGT SRV PROV QUAL NONPHYS HLTH CARE PRO TO EST PAT,PARENT,GUARD NOT ORIG REL ASSESS & MGT SRV PROV W/IN PREV 7 DAYS NOR LEAD ASSESS & MGT SRV/PX W/IN NXT 24H/SOON APT; 11-20 MIN MED DIS 2022 DoD CASE MANAGEMENT, EACH 15 MINUTES 2019 DoD CASE MANAGEMENT, EACH 15 MINUTES 2019 DoD CASE MANAGEMENT, EACH 15 MINUTES 2019 DoD CASE MANAGEMENT, EACH 15 MINUTES 2019 DoD CASE MANAGEMENT, EACH 15 MINUTES 2019 DoD CASE MANAGEMENT, EACH 15 MINUTES 2019 DoD CASE MANAGEMENT, EACH 15 MINUTES 2019 DoD CASE MANAGEMENT, EACH 15 MINUTES 2017 DoD TELE ASSESS & MGT SRV PROV QUAL NONPHYS HLTH CARE PRO TO EST PAT,PARENT,GUARD NOT ORIG REL ASSESS & MGT SRV PROV W/IN PREV 7 DAYS NOR LEAD ASSESS & MGT SRV/PX W/IN NXT 24 HR/SOON APT;5-10 MIN MED DIS 2017 DoD TELE ASSESS & MGT SRV PROV QUAL NONPHYS HLTH CARE PRO TO EST PAT,PARENT,GUARD NOT ORIG REL ASSESS & MGT SRV PROV W/IN PREV 7 DAYS NOR LEAD ASSESS & MGT SRV/PX W/IN NXT 24 HR/SOON APT;5-10 MIN MED DIS 2016 DoD TELE ASSESS & MGT SRV PROV QUAL NONPHYS HLTH CARE PRO TO EST PAT,PARENT,GUARD NOT ORIG REL ASSESS & MGT SRV PROV W/IN PREV 7 DAYS NOR LEAD ASSESS & MGT SRV/PX W/IN NXT 24 HR/SOON APT;5-10 MIN MED DIS 2014 DoD TELE ASSESS & MGT SRV PROV QUAL NONPHYS HLTH CARE PRO TO EST PAT,PARENT,GUARD NOT ORIG REL ASSESS & MGT SRV PROV W/IN PREV 7 DAYS NOR LEAD ASSESS & MGT SRV/PX W/IN NXT 24 HR/SOON APT;5-10 MIN MED DIS 2014 DoD TELE ASSESS & MGT SRV PROV QUAL NONPHYS HLTH CARE PRO TO EST PAT,PARENT,GUARD NOT ORIG REL ASSESS & MGT SRV PROV W/IN PREV 7 DAYS NOR LEAD ASSESS & MGT SRV/PX W/IN NXT 24 HR/SOON APT;5-10 MIN MED DIS 2013 DoD CASE MANAGEMENT, EACH 15 MINUTES 2012 DoD COORDINATED CARE FEE, MAINTENANCE RATE 2012 DoD CASE MANAGEMENT, EACH 15 MINUTES 2012 DoD CASE MANAGEMENT, EACH 15 MINUTES 2011 DoD CASE MANAGEMENT, EACH 15 MINUTES 2011 DoD CASE MANAGEMENT, EACH 15 MINUTES 2011 DoD CASE MANAGEMENT, EACH 15 MINUTES 2011 DoD CASE MANAGEMENT, EACH 15 MINUTES 2011 DoD SHAVING OF EPIDERMAL OR DERMAL LESION, SINGLE LESION, SCALP, NECK, HANDS, FEET, GENITALIA; LESION DIAMETER 0.5 CM OR LESS 2010 DoD TELE ASSESS & MGT SRV PROV QUAL NONPHYS HLTH CARE PRO TO EST PAT,PARENT,GUARD NOT ORIG REL ASSESS & MGT SRV PROV W/IN PREV 7 DAYS NOR LEAD ASSESS & MGT SRV/PX W/IN NXT 24 HR/SOON APT;5-10 MIN MED DIS 2009 DoD TELE ASSESS & MGT SRV PROV QUAL NONPHYS HLTH CARE PRO TO EST PAT,PARENT,GUARD NOT ORIG REL ASSESS & MGT SRV PROV W/IN PREV 7 DAYS NOR LEAD ASSESS & MGT SRV/PX W/IN NXT 24 HR/SOON APT;5-10 MIN MED DIS 2009 DoD TELE ASSESS & MGT SRV PROV QUAL NONPHYS HLTH CARE PRO TO EST PAT,PARENT,GUARD NOT ORIG REL ASSESS & MGT SRV PROV W/IN PREV 7 DAYS NOR LEAD ASSESS & MGT SRV/PX W/IN NXT 24 HR/SOON APT;5-10 MIN MED DIS 2009 [facility] PNEUMOCOCCAL POLYSACCHARIDE VACCINE, 23-VALENT (PPSV23), ADULT OR IMMUNOSUPPRESSED PATIENT DOSAGE, WHEN ADMINISTERED TO INDIVIDUALS 2 YEARS OR OLDER, FOR SUBCUTANEOUS OR INTRAMUSCULAR USE 2007 DoD TELE ASSESS & MGT SRV PROV QUAL NONPHYS HLTH CARE PRO TO EST PAT,PARENT,GUARD NOT ORIG REL ASSESS & MGT SRV PROV W/IN PREV 7 DAYS NOR LEAD ASSESS & MGT SRV/PX W/IN NXT 24 HR/SOON APT;5-10 MIN MED DIS 2007 [facility] SCANNING COMPUTERIZED OPHTHALMIC DIAGNOSTIC IMAGING, POSTERIOR SEGMENT, (EG, SCANNING LASER) WITH INTERPRETATION AND REPORT, UNILATERAL 2007 [facility] SCANNING COMPUTERIZED OPHTHALMIC DIAGNOSTIC IMAGING, POSTERIOR SEGMENT, (EG, SCANNING LASER) WITH INTERPRETATION AND REPORT, UNILATERAL 2007 [facility] DESTRUCTION (EG, LASER SURGERY, ELECTROSURGERY, CRYOSURGERY, CHEMOSURGERY, SURGICAL CURETTEMENT), OF BENIGN LESIONS OTHER THAN SKIN TAGS OR CUTANEOUS VASCULAR PROLIFERATIVE LESIONS; UP TO 14 LESIONS 2007 [facility] VISUAL FIELD EXAM,UNILAT/BI,INTERP&R EP;EXT EXM(EG,GOLDMANN VIS FLD,AT LEAST 3 ISOP PLOT&STAT DET W/IN KATHY 30DEG/QUANT,AUTO THRSH MAYELA,OCT G-1,3242,HUMP VIS FLD ANAL FULL THRSH 30-2,24-2, OR 3060-2) 2007 [facility] FITTING OF SPECTACLES, EXCEPT FOR APHAKIA; BIFOCAL 2007 [facility] CARDIOVASCULAR STRESS TEST USING MAXIMAL OR SUBMAXIMAL TREADMILL OR BICYCLE EXERCISE,CONTINUOUS ELECTROCARDIOGRAPHIC MONITORING,AND/OR PHARMACOLOGICAL STRESS;W SUPERVISION,INTERPRETAT ION AND REPORT 2006 [facility] VISUAL FIELD EXAMINATION, UNI OR BILATERAL, WITH MEDICAL DIAGNOSTIC EVAL; INTERMEDIATE EXAM (EG, AT LEAST 2 ISOPTERS ON GOLDMANN PERIMETER, OR SEMIQUANT, AUTO SUPRATHRESHOLD SCREEN PROGRAM, NICOLE 2006 [facility] ACOUSTIC REFLEX TESTING, THRESHOLD 2006 [facility] ELECTROCARDIOGRAM, ROUTINE ECG WITH AT LEAST 12 LEADS; TRACING ONLY, WITHOUT INTERPRETATION AND REPORT 2005 [facility] Case Management, each 15 minutes 2017 TIFFANY EARLY [facility] Non-Physician Phone Call To Patient/Provider Brief (5-10min) Non-Physician Phone Call To Patient/Provider Brief (5-10min) [id number] 2017 KAITLYN PERKINS DoD Non-Physician Phone Call To Patient/Provider Brief (5-10min) Non-Physician Phone Call To Patient/Provider Brief (5-10min) [id number] 2016 KAITLYN PERKINS DoD Non-Physician Phone Call To Patient/Provider Brief (5-10min) Non-Physician Phone Call To Patient/Provider Brief (5-10min) [id number] 2014 DIO DENNISON [facility] Non-Physician Phone Call To Patient/Provider Brief (5-10min) Non-Physician Phone Call To Patient/Provider Brief (5-10min) [id number] 2014 ZACH CHAPA [facility] Non-Physician Phone Call To Patient/Provider Brief (5-10min) Non-Physician Phone Call To Patient/Provider Brief (5-10min) [id number] 2013 OANH CRESPO [facility] Case Management, each 15 minutes 2012 MAGDALENA, ROSIE [facility] Coordinated care fee, maintenance rate 2012 MAGDALENA, ROSIE DoD Coordinated care fee, maintenance rate 2012 ROSALIO PIERCE [facility] Case Management, each 15 minutes 2012 ROSALIO PIERCE [facility] Case Management, each 15 minutes 2012 MAGDALENA, ROSIE [facility] Coordinated care fee, maintenance rate 2012 MAGDALENA, ROSIE [facility] Case Management, each 15 minutes 2011 RUNNERTOBI [facility] Coordinated care fee, maintenance rate 2011 RUNTASHA, TOBI Tavares [facility] Case Management, each 15 minutes 2011 RUNNER, TOBI D [facility] Coordinated care fee, maintenance rate 2011 RUNNER, TOBI Tavares [facility] Case Management, each 15 minutes 2011 RUNNER, TOBI Tavares [facility] Case Management, each 15 minutes 2011 RUNNER, TOBI Tavares [facility] Case Management, each 15 minutes 2011 RUNTOBI CORDOVA [facility] Shaving Of Lesion Feet Up to .5cm Shaving Of Lesion Feet Up to .5cm [id number] 2010 SINTIA MANZO [facility] Non-Physician Phone Call To Patient/Provider Brief (5-10min) Non-Physician Phone Call To Patient/Provider Brief (5-10min) [id number] 2009 DIO DENNISON [facility] Non-Physician Phone Call To Patient/Provider Brief (5-10min) Non-Physician Phone Call To Patient/Provider Brief (5-10min) [id number] 2009 DIO DENNISON [facility] Non-Physician Phone Call To Patient/Provider Brief (5-10min) Non-Physician Phone Call To Patient/Provider Brief (5-10min) [id number] 2009 DARRYL MAYERS [facility] Pneumococcal Polysaccharide Vaccine 23 Valent Intramuscular Pneumococcal Polysaccharide Vaccine 23 Valent Intramuscular 53914 2007 YOHANA DANIELS [facility] Non-Physician Phone Call To Patient/Provider Brief (5-10min) Non-Physician Phone Call To Patient/Provider Brief (5-10min) [id number] 2007 HECTOR MAXWELL Scanning Computerized Ophthalmic Diagnostic Imaging 2007 MERLYN DAVALOS Visual Liang Test Extended Examination Visual Liang Test Extended Examination 77034 2007 MERLYN DAVALOS Ophthalmological Prior Patient Start Intermediate Level Care Ophthalmological Prior Patient Start Intermediate Level Care 81416 2007 MERLYN DAVALOS Scanning Computerized Ophthalmic Diagnostic Imaging 2007 FELA CHAUDHRY Visual Liang Test Extended Examination Visual Liang Test Extended Examination 20172 2007 FELA CHAUDHRY Ophthalmological Prior Patient Start Intermediate Level Care Ophthalmological Prior Patient Start Intermediate Level Care 97250 2007 FELA CHAUDHRY Destruction Of Benign Lesion By Cryosurgery 2007 VIRGINIA ZEPEDA Visual Liang Test Extended Examination Visual Liang Test Extended Examination 61663 2007 FELA CHAUDHRY Scanning Computerized Ophthalmic Diagnostic Imaging 2007 FELA CHAUDHRY Corneal Pachymetry, Bilateral With Interpret And Report Corneal Pachymetry, Bilateral With Interpret And Report 80637 2007 FELA CHAUDHRY Ophthalmological Prior Patient Start Intermediate Level Care Ophthalmological Prior Patient Start Intermediate Level Care 85572 2007 FELA CHAUDHRY Spectacles Services Fitting Bifocal Except For Aphakia Spectacles Services Fitting Bifocal Except For Aphakia 07712 2007 FELA CHAUDHRY Determination Of Refractive State Determination Of Refractive State 83545 2007 FELA CHAUDHRY Visual Liang Test Extended Examination Visual Liang Test Extended Examination 68164 2007 FELA CHAUDHRY Ophthalmological Prior Patient Start Comprehensive Care Ophthalmological Prior Patient Start Comprehensive Care 00635 2007 FELA CHAUDHRY Cardiac Stre Test With Physician Supervision, Interpretation, And Report Cardiac Stress Test With Physician Supervision, Interpretation, And Report 08822 2006 NIXON [place] Visual Liang Test Intermediate Examination Visual Liang Test Intermediate Examination 85474 2006 TOBI DAVALOS Determination Of Refractive State Determination Of Refractive State 16010 2006 TOBI DAVALOS Spectacles Services Fitting Monofocal Except For Aphakia Spectacles Services Fitting Monofocal Except For Aphakia 16333 2006 TOBI DAVALOS [facility] Ophthalmological Prior Patient Start Comprehensive Care Ophthalmological Prior Patient Start Comprehensive Care 15200 2006 TOBI DAVALOS [facility] Comprehensive Audiometry Comprehensive Audiometry 94219 2006 TAO LIAO [facility] Audiologic Impedance Testing Audiologic Impedance Testing 55603 2006 TAO LIAO [facility] Acoustic Reflex Testing 10/02 TAO LIAO [facility] ECG Performance of Tracing Only ECG Performance of Tracing Only 54111 2005 CAMPBELL LA [facility] Case Management, each 15 minutes TIFFANY EARLY [facility] Non-Physician Phone Call To Pt/Provider Intermed (11-20 min) Non-Physician Phone Call To Pt/Provider Intermed (11-20 min) [id number] RACHEL ROBERTSON [facility] Social History Combined list of available smoking, tobacco, and other social history from Department of Defense and Veterans Affairs facilities. Social History Type Response Date Comment Sourc e Sex Representation Male 07/26/2022 Unknow n Organization Tobacco Frequent/Daily exposure to secondhand smoke in indoor/confined spaces Yes. Cigarette use: Yes-current everyday cigarette user. Average PACKS per day: (10 cigarettes = 0.5 packs) 0.75. Total years of smoking cigarettes: 60. *Total pack years (*reqd for current/former users to complete the Rec. Packs/day times total years) 45. Other Tobacco use: Never-other tobacco user (not cigarettes). Ambulatory Pharmacy Sexual Orientation Ambula tory Pharmacy Gender identity Ambulator y Pharmacy This section is an empty social history section. [facility] Assessment and Plan Combined list of future care activities from Department of Defense and Veterans Affairs facilities (e.g., assessment and plan notes, appointments, orders, and referrals). Additional future care activities may be listed in the Plan of Care section. Result Assessment and Plan Date Source Assessment and Plan Extracted from:Title : 0055 IMCL Somnambulation Author: PABLO ALDRIDGE, DO Date: 07/01/24 1. S omnambulism Episode of sleep walking that resulted in using the stove and burning bags. He is not on any medications that would expect to cause this. There are no associated sxms. Exam today unremarkable. L OC _ , CN II-XII i ntact , motor strength e qual and normal b ilaterally, sensation e qual and normal b ilaterally, speech n ormal ? . N o a taxia noted on f meme to nose, no t rouble with rapid alternating movements. P ERRLA a nd EOMI. Negative rhombergs test. No rigidity or tremors noted on exam. Had patient p sandy Whitney OCA, 2 01/30. N o o bvious deficits. D iscussed?CT results, noting p rior r emote stroke. H e f ollows with N eurology regularly for s eizure d isorder. At this t maris, n o evidence to suggest o bvious pathology r esulting in h is symptoms. S uspect s omnambulism. Considered further eval with MRI for findings that may not present readily on CT, but given such normal exam, no clear benefit at this time. No rigidity or tremor, recent falls or weakness. Discussed that r egardless of reassuring exam, w ould still recommend he discuss w ith n eurologist f or a ny further t esting or treatment t hat t hey may w ant t o pursue. Provided s trategies to assist with somnambulation. Patient encouraged to return to clinic, present to UCC or ER for persistent worsening or development of other concerning symptoms. Patient cites understanding and agrees with plan of care. A total of 40 minutes was spent on this visit reviewing previous notes, counseling the patient on the listed diagnoses, reviewing/ordering tests, adjusting medications, and documenting the findings in this note. 2. S eizure disorder 3. E ustachian tube disorder F luid noted behind bilateral TMs, patient admits to some recent nasal congestion. Will provide vicky f or symtpomatic t x. Orders: fexofenadine(fexofenadine 180 mg oral tablet), 1 tab(s), Oral, Daily, PRN allergy symptoms, # 90 tab(s), 3 total refill(s), Maintenance, Pharmacy: [facility] [External Rx] Enedelia Aldridge DO, [facility], , [facility] Internal Medicine, Lee RODRIGEZ Extracted from:Title: 0055C Clinic - Somnambulism (virtual) Author: IGOR ALVA MD Date: 06/24/24 1. S omnambulism E pisode of sleep walking that resulted in using the stove and burning bags. He is not on any medications that would expect to cause this. There are no associated sxms. Ddx i ncluded benign somnambulism and BULK SYSTEM OPERATOR insults including BULK SYSTEM OPERATOR malignancies and early stage cognitive issues like Parkinson's. - Check CT head w/ con to r/o primary malignancies, abscesses, or other structural pathology - F/u in clinic next week for re-assessment and neurologic evaluation 2. S eizure disorder This appointment was performed virtually (via telephone to telephone). Patient s name and were verified prior to beginning the encounter for security purposes. Patient encouraged to return to clinic, present to UCC or ER for persistent worsening or development of other concerning symptoms. Patient cites understanding and agrees with plan of care. A total of 30 m inutes was spent on this visit reviewing previous notes, counseling the patient on the listed diagnoses, reviewing/ordering tests, adjusting medications, and documenting the findings in this note. Igor Alva MD Capt, [address], [facility] Internal Medicine Staff Physician Extracted from:Title: 0055C IM Clinic - Annual visit/osteoporosis Author: IGOR ALVA MD Date: 02/05/24 1. A nnual wellness exam Reviewed most recent labs, imaging, history, and prev med. ROS and physical exam unremarkable. Discussed diet and exercise recommendations (Low carb diet, Mediterranean diet, whole food plant based as options). 150 min/wk vigorous exercise per ACC/AHA. Reviewed outside labs from [facility] obtained in September. LDL 47. A1c 5.6. CBC, CMP, TSH otherwise unremarkable. Preventative Medicine: # General Wellness. -Colon CA Screening: L ast colonoscopy according to patient in 2019 (polyps removed) 5 year follow up, due, referral placed -Lung CA: M eets criteria. Last CT chest: L irads 2, Sep 2022, repeat ordered -Prostate Cancer: Hxy of prostate cancer, no longer follows with Urology, obtain annual PSA -Osteoporosis Screening: K nown dx -AAA Screening: Neg (Sep 2022) -Diabetes Screening: Patient is N on-Diabetic. Last hgba1c of 5 .6 -Lipid Screening: O n statin -ASCVD: Secondary prevention -Hepatitis C (lifetime): N eg (2019) # Vaccinations: -Influenza: Advised to complete annually -Pneumococcal: P PSV23: 05/10/2008, PCV13 (2018), PCV20 (2022) -Tetanus: Last 01/15/2020 -Zoster: 07/05 (2022) -COVID: A dvised to obtain annually -RSV: Recommended 2. O steoporosis Severe osteoporosis seen on 2010 bone scan. He was started on alendronate that year but no new orders were placed. Unable to find documentation regarding this and he d enies any problems. Unable to find any notes from endocrinology. - Repeat bone scan Ordered: CT Bone Density Axial Skeleton 3. E ssential hypertension Goal <130/80 per ACC/AHA. C linic readings a t goal; asymptomatic. B MP unremarkable. - Continue with lifestyle changes - Advised following the DASH diet or a diet low in sodium (<2400mg sodium daily) - Advised to keep daily blood pressure log and to call if readings are consistently above or below goal for >3 days or if symptoms develop 4. N icotine dependence Precontemplative. Discussed different treatment options. He thinks he would like to quit and has in the past, but is n0t ready to commit. - Address at every appt 5. P rimary prostate cancer S/p prostatectomy. He reports that he no longer follows with Urology. - Obtain annual PSA Patient encouraged to return to clinic, present to [facility] or ER for persistent worsening or development of other concerning symptoms. Patient cites understanding and agrees with plan of care. A total of 40 minutes was spent on this visit reviewing previous notes, counseling the patient on the listed diagnoses, reviewing/ordering tests, adjusting medications, and documenting the findings in this note. Igor Alva MD Capt, [address], [facility] Internal Medicine Staff Physician Future Scheduled TestsLaboratoryCreatinine Level 06/24/24RadiologyCT Angio Abdomen and Pelvis 05/15/24 07/30/2024 0055[facility] Assessment and Plan Extracted from:Title : 0055 IMCL Somnambulation Author: PABLO ALDRIDGE, DO Date: 07/01/24 1. S omnambulism Episode of sleep walking that resulted in using the stove and burning bags. He is not on any medications that would expect to cause this. There are no associated sxms. Exam today unremarkable. L OC _ , CN II-XII i ntact , motor strength e qual and normal b ilaterally, sensation e qual and normal b ilaterally, speech n ormal ? . N o a taxia noted on f meme to nose, no t rouble with rapid alternating movements. P ERRLA a nd EOMI. Negative rhombergs test. No rigidity or tremors noted on exam. Had patient p erform M OCA, 2 01/30. N o o bvious deficits. D iscussed?CT results, noting p rior r emote stroke. H e f ollows with N eurology regularly for s eizure d isorder. At this t maris, n o evidence to suggest o bvious pathology r esulting in h is symptoms. S uspect s omnambulism. Considered further eval with MRI for findings that may not present readily on CT, but given such normal exam, no clear benefit at this time. No rigidity or tremor, recent falls or weakness. Discussed that r egardless of reassuring exam, w mayteld still recommend he discuss w ith n eurologist f or a ny further t esting or treatment t hat t hey may w ant t o pursue. Provided s trategies to assist with somnambulation. Patient encouraged to return to clinic, present to [facility] or ER for persistent worsening or development of other concerning symptoms. Patient cites understanding and agrees with plan of care. A total of 40 minutes was spent on this visit reviewing previous notes, counseling the patient on the listed diagnoses, reviewing/ordering tests, adjusting medications, and documenting the findings in this note. 2. S eizure disorder 3. E ustachian tube disorder F luid noted behind bilateral TMs, patient admits to some recent nasal congestion. Will provide vicky f or symtpomatic t x. Orders: fexofenadine(fexofenadine 180 mg oral tablet), 1 tab(s), Oral, Daily, PRN allergy symptoms, # 90 tab(s), 3 total refill(s), Maintenance, Pharmacy: [facility] [External Rx] BAlexx Aldridge DO, [facility], , [facility] Internal Medicine, Lee RODRIGEZ Extracted from:Title: 0055C Clinic - Somnambulism (virtual) Author: IGOR ALVA MD Date: 06/24/24 1. S omnambulism E pisode of sleep walking that resulted in using the stove and burning bags. He is not on any medications that would expect to cause this. There are no associated sxms. Ddx i ncluded benign somnambulism and BULK SYSTEM OPERATOR insults including BULK SYSTEM OPERATOR malignancies and early stage cognitive issues like Parkinson's. - Check CT head w/ con to r/o primary malignancies, abscesses, or other structural pathology - F/u in clinic next week for re-assessment and neurologic evaluation 2. S eizure disorder This appointment was performed virtually (via telephone to telephone). Patient s name and were verified prior to beginning the encounter for security purposes. Patient encouraged to return to clinic, present to [facility] or ER for persistent worsening or development of other concerning symptoms. Patient cites understanding and agrees with plan of care. A total of 30 m inutes was spent on this visit reviewing previous notes, counseling the patient on the listed diagnoses, reviewing/ordering tests, adjusting medications, and documenting the findings in this note. Igor Alva MD Capt, [address], [facility] Internal Medicine Staff Physician Extracted from:Title: 0055C IM Clinic - Annual visit/osteoporosis Author: IGOR ALVA MD Date: 02/05/24 1. A nnual wellness exam Reviewed most recent labs, imaging, history, and prev med. ROS and physical exam unremarkable. Discussed diet and exercise recommendations (Low carb diet, Mediterranean diet, whole food plant based as options). 150 min/wk vigorous exercise per ACC/AHA. Reviewed outside labs from [facility] obtained in September. LDL 47. A1c 5.6. CBC, CMP, TSH otherwise unremarkable. Preventative Medicine: # General Wellness. -Colon CA Screening: L ast colonoscopy according to patient in 2019 (polyps removed) 5 year follow up, due, referral placed -Lung CA: M eets criteria. Last CT chest: L irads 2, Sep 2022, repeat ordered -Prostate Cancer: Hxy of prostate cancer, no longer follows with Urology, obtain annual PSA -Osteoporosis Screening: K nown dx -AAA Screening: Neg (Sep 2022) -Diabetes Screening: Patient is N on-Diabetic. Last hgba1c of 5 .6 -Lipid Screening: O n statin -ASCVD: Secondary prevention -Hepatitis C (lifetime): N eg (2019) # Vaccinations: -Influenza: Advised to complete annually -Pneumococcal: P PSV23: 05/10/2008, PCV13 (2017), PCV20 (2022) -Tetanus: Last 01/15/2020 -Zoster: /2 (2022) -COVID: A dvised to obtain annually -RSV: Recommended 2. O steoporosis Severe osteoporosis seen on 2010 bone scan. He was started on alendronate that year but no new orders were placed. Unable to find documentation regarding this and he d enies any problems. Unable to find any notes from endocrinology. - Repeat bone scan Ordered: CT Bone Density Axial Skeleton 3. E ssential hypertension Goal <130/80 per ACC/AHA. C linic readings a t goal; asymptomatic. B MP unremarkable. - Continue with lifestyle changes - Advised following the DASH diet or a diet low in sodium (<2400mg sodium daily) - Advised to keep daily blood pressure log and to call if readings are consistently above or below goal for >3 days or if symptoms develop 4. N icotine dependence Precontemplative. Discussed different treatment options. He thinks he would like to quit and has in the past, but is n0t ready to commit. - Address at every appt 5. P rimary prostate cancer S/p prostatectomy. He reports that he no longer follows with Urology. - Obtain annual PSA Patient encouraged to return to clinic, present to [facility] or ER for persistent worsening or development of other concerning symptoms. Patient cites understanding and agrees with plan of care. A total of 40 minutes was spent on this visit reviewing previous notes, counseling the patient on the listed diagnoses, reviewing/ordering tests, adjusting medications, and documenting the findings in this note. Igor Alva MD Capt, [address] OS, [facility] Internal Medicine Staff Physician Future Scheduled TestsLaboratoryCreatinine Level 06/24/24RadiologyCT Angio Abdomen and Pelvis 05/15/24 07/30/2024 Unknown Organization Functional Status Combined list of recent functional and cognitive assessments recorded at Department of Defense and Veterans Affairs (VA).VA Functional Swain Measurement (FIM) Scale: 1 = Total Assistance (Subject = 0% +), 2 = Maximal Assistance (Subject = 25% +), 3 = Moderate Assistance (Subject = 50% +), 4 = Minimal Assistance (Subject = 75% +), 5 = Supervision, 6 = Modified Swain (Device), 7 = Complete Swain (Timely, Safely). Assessment Date/Time Source Assessment Type Assessment Skill Assessment Score Assessment Details No data available for this section
--- OUTSIDE RECORDS SUMMARY | 2024-07-30 02:29 | XMS_ITS | Encounter Summary ---
Author Organization [facility] Address [facility] [place] [address] Care Team Providers Care Rn Labor Delivery Name Role Phone Luís Elizondo MD Primary Care Provider [phone] John Paul Cherry MD Unavailable Elmer Forbes Primary Care Provider [phone] Jess Floyd DO Primary Care Provider [phone] López King DO Primary Care Provider [phone] Jess Floyd DO Primary Care Provider [phone] Adria Aldridge DO Primary Care Provider [phone] Encounter Details Date Type Department Care Team (Late st Contact Info) Description 08/30/2016 Abstract [facility] AT [address] [address] Kristen Alfonso MA Social History Tobacco Use Types Packs/Day Years Used Date Smoking Tobacco: Every Day Cigarettes Smokeless Tobacco: Never Comments:Down to smoking < 1 ppd Alcohol Use Standard Drinks/Week Comments Yes 0 (1 standard drink = 0.6 oz pure alcohol) Chronic alcoholism, currently sober for several months Sex and Gender Information Value Date Recorded Sex Assigned at Not on file Legal Sex Male 1:49 AM CDT Gender Identity Not on file Sexual Orientation Not on file 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 [address] [place], [place] [address] documented as of this encounter Procedures Procedure Name Priority Date/Time Associated Diagnosis Comments AST/SGOT Routine 10/07/2017 LIPID PANEL Routine 10/07/2017 ALT/SGPT Routine 10/07/2017 LIPID PANEL Routine 06/26/2017 CK (CPK) Routine 06/26/2017 ALT/SGPT Routine 06/26/2017 CBC (OUTSIDE LAB) Routine 08/27/2016 COMPREHENSIVE METABOLIC PANEL Routine 08/27/2016 LIPID PANEL Routine 08/27/2016 HEMOGLOBIN, GLYCOSYLATED Routine 08/27/2016 THYROID STIM HORMONE TSH Routine 08/27/2016 documented in this encounter Results * ALT/SGPT (10/07/2017) ALT 19 10/07/2017 us Doc [facility] Final Result * AST/SGOT (10/07/2017) AST 13 10/07/2017 us Doc [facility] Edited Resul t - Final * LIPID PANEL (10/07/2017) CHOLESTEROL 170 HDL 51 TRIGLYCERIDES 110 LDL (CALCULATED) 92 10/07/2017 us Doc [facility] LAB[facility] Edited Resul t - Final * CK (CPK) (06/26/2017) CPK 91 06/26/2017 us Doc [facility]ORAT[facility] Final Result * ALT/SGPT (06/26/2017) ALT 16 06/26/2017 us Doc [facility] Final Result * LIPID PANEL (06/26/2017) CHOLESTEROL 205 HDL 57 TRIGLYCERIDES 136 LDL (CALCULATED) 123 06/26/2017 us Doc [facility] Final Result * CBC (OUTSIDE LAB) (08/27/2016) WBC 9.5 HGB 14.9 HCT 45.5 PLT 242 08/27/2016 us Doc [facility] Abstract LAB-OUTSIDE/ABSTRACTED Final Result * HEMOGLOBIN, GLYCOSYLATED (08/27/2016) HGB A1C 5.5 08/27/2016 us Doc [facility] LABORAT[facility] Final Result * THYROID STIM HORMONE, TSH (08/27/2016) TSH 1.41 08/27/2016 us Doc [facility] LAB[facility] Final Result * COMPREHENSIVE METABOLIC PANEL (08/27/2016) SODIUM S/P/B 138 POTASSIUM S/P/B 4.4 CO2 25 CHLORIDE S/P/B 103 GLUCOSE 107 CALCIUM S/P/B 9.9 BUN 14 CREATININE S/P/B 1.07 0.7 - 1.3 EGFR AFR. AMER. 84 EGFR NON-AFR. AMER. 72 ALKALINE PHOSPHATASE S/P/B 98 ALT 15 AST 14 BILIRUBIN TOTAL S/P/B 0.2 ALBUMIN S/P/B 4.2 3.5 - 5.0 TOTAL PROTEIN S/P/B 7.2 08/27/2016 us Doc [facility] LABORAT[facility] Final Result * LIPID PANEL (08/27/2016) CHOLESTEROL 189 HDL 57 TRIGLYCERIDES 53 LDL (CALCULATED) 110 08/27/2016 us Doc [facility] LAB[facility] Final Result documented in this encounter Visit Diagnoses Not on filedocumented in this encounter Care Teams Rn Labor Delivery Relationship Specialty Start Date End Date Luís Elizondo MD [address] [place], [place] [address] PCP - General INTERNAL MEDICINE 11/02/15 06/24/17 Elmer Forbes PA [facility] [address] [place], [place] [address] PCP - General PHYSICIAN SALES DEVELOPMENT CONSULTANT 06/25/17 06/02/19 Jess Floyd DO [address] [address] PCP - General INTERNAL MEDICINE 06/03/19 08/22/20 López King DO [address] [facility] [address] [place], [place] [address] PCP - General MOTORBOAT MECHANIC 08/23/20 12/04/21 Jess Floyd DO [address] [address] PCP - General INTERNAL MEDICINE 12/05/21 11/30/22 Adria Aldridge DO [address] [facility], [place] [address] PCP - General INTERNAL MEDICINE 12/01/22 John Paul Cherry MD [facility]. [facility] [[email or web address] [address] [place], [place] [id number] [employer]os [employer] CARDIOVASCULAR DISEASE 07/12/16 documented as of this encounter
--- OUTSIDE RECORDS SUMMARY | 2024-07-30 02:30 | XMS_ITS | Clinical Summary ---
Author Organization [facility] Address [address] [place] [address] Care Team Providers Care Machine Sand Mixer Name Role Phone John Paul Cherry MD Unavailable Adria Aldridge DO Primary Care Provider [phone] Allergies No known active allergies Medications aspirin (ASPIRIN ADULT LOW DOSE) 81 MG Tab EC Take 1 tablet by mouth daily. 3 Active PHENYTOIN INFATABS 50 MG chewable tablet Chew 1 tablet by mouth every evening. 0 Active Vitamin D3, cholecalcifero l, 2000 UNIT Tab tablet 1 tablet daily. 2 Active levETIRAcetam 750 MG tablet Take 750 mg by mouth every 12 (twelve) hours. 2 Active nitroglycerin (NITROSTAT) 0.[address] 1 tablet (0.4 mg total) under the tongue every 5 (five) minutes as needed for Chest Pain (Maximum of 3 doses, then call 911). Pt knows not to take in the same 36 hour period as sildenafil tablets 25 tablet 1 2 Active sildenafil 100 MG tablet Take 1 tablet (100 mg total) by mouth daily as needed for Erectile Dysfunction. DO NOT TAKE IN THE SAME 36 HOUR OF TAKING NITROGLYCERIN - IF NECESSARY GO TO ER 18 tablet 3 2 Active ezetimibe (ZETIA) 10 MG tablet TAKE 1 TABLET NIGHTLY AT BEDTIME 90 tablet 3 4 Active calcium carbonate (OS-HERNAN) 1500 (600 Ca) MG tablet Take 1 tablet (1,500 mg total) by mouth daily. Active rosuvastatin (CRESTOR) 20 MG tablet TAKE 1 TABLET NIGHTLY AT BEDTIME 90 tablet 1 4 Active Active Problems Problem Noted Date Diagnosed Date CAD (coronary artery disease) Overview (08/20/2016): s/p CABG in 2012 Dyslipidemia Seizure disorder ([facility]) PAD (peripheral artery disease) Ischemic cardiomyopathy Tobacco use Alcoholism ([facility]) Resolved Problems Problem Noted Date Diagnosed Date Resolved Date NSTEMI (non-ST elevated myoc ardial infarction) ([facility]) 06/29/2012 06/18/2017 Peripheral vascular disease 06/18/2017 Tobacco abuse disorder 08/31 Encounters Date Type Department Care Team Description 07/27/2024 Telephone [facility] [address] [place] [place] [address] John Paul Cherry MD Surgical Clearance (CARDIAC CLEARANCE REQUEST FROM [facility] ) 07/22/2024 Telephone [facility] [address] [place] [address] John Paul Cherry MD Information ([facility]) 05/21/2024 Patient Outreach [employer] [address] [place] [phone] Deepali Harrell LPN Pre-visit Gap Closure 05/19/2024 Telephone [employer] [address] [place] [phone] Leela Mccarty MA Record Request (Requested Colonoscopy report) from Last 3 Months Immunizations Name Administration Dates Next Due Fluzone High Dose - >Age 65 (Prefilled Syringe) 03/24/2022,02/10/2017 Influenza (Generic) 05/10/2008,03/28/2007 Influenza Adult (Generic) 02/13/2018,02/10/2017 Pneumococcal (Pneumovax 23) 07/14/2012, 8 Pneumococcal (Prevnar 13) 02/13/2018 Pneumococcal (Prevnar 20) 08/31/2022 Shingrix 08/31/2022,01/15/2020 Td (TDVAX) 01/15/2020 Tdap (Generic) 03/28/2007 Zoster (Zostavax) [address] Unt/0.65Ml 04/06/2014 Family History Medical History Relation Comments No family history of premature coronary artery d isease. 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 Not on file Not on file Not on file Not on file Not on file Not on file Last Filed Vital Signs Vital Sign Reading Time Taken Comments Blood Pressure 134/80 12/23/2023 9:18 AM CDT Pulse 56 12/23/2023 9:18 AM CDT Temperature - - Respiratory Rate - - Oxygen Saturation 98% 12/23/2023 9:18 AM CDT Inhaled Oxygen Concentration - - Weight 77.6 kg (171 lb) 12/23/2023 9:18 AM CDT Height 177.8 cm (5' 10 ) 12/23/2023 9:18 AM CDT Body Mass Index 24.54 12/23/2023 9:18 AM CDT Plan of Treatment Upcoming Encounters Date Type Department Care Team (Late st Contact Info) Description 12/29/2024 9:30 AM CDT Office Visit [facility], [address] [place] [address] John Paul Cherry MD Three [facility]. [address] [place], [place] [address] Health Maintenance Due Date Last Done Comments Hepatitis C 1969 RSV Immunization or 60+ Years (1 - Risk 60-74 years 1-dose series) 2011 AAA SCREENING 2016 Annual Medicare Wellness Visit 2016 ASCVD LDL 09/04/2023 09/03/2022, 08/01, 01/15/2020, Additional history exists COVID-19 Vaccine ( season) 2024 03/24/2022, 11/08/2020, 10/11/2020 Influenza Adult (#1) 2024 03/24/2022, 02/13/2018, 02/10/2017, Additional history exists Colorectal Cancer Screening Colonoscopy (10 Years) 12/18/2025 12/19/2015 DTaP, Tdap and Td Vaccines (3 - Td or Tdap) 01/14/2030 01/15/2020, 03/28/2007 Pneumococcal Vaccine: 65+ Years Completed 08/31/2022, 02/13/2018, 07/14/2012, Additional history exists Zoster Vaccines Completed 08/31/2022, 01/01, 04/06/2014 Meningococcal B Vaccine Aged Out No l onger eligible based on patient's age to complete this topic Meningococcal Vaccine Aged Out No bianca brit eligible based on patient's age to complete this topic RSV Immunizations Under 20 Months Aged Out No longer eligible based on patient's age to complete this topic Procedures Procedure Name Priority Date/Time Associated Diagnosis Comments LIPID PANEL Routine 09/03/2022 COLONOSCOPY GENERIC (SCAN ORDER) Routine 12/19/2015 from Last 3 Months or Most Recently Relevant to Health Maintenance Results * LIPID PANEL (09/03/2022) CHOLESTEROL 127 TRIGLYCERIDES 60 HDL 51 LDL (CALCULATED) 47 Narrative Resulting Agency Comment us Default History Genericprovider LABORATORY Final Result * COLONOSCOPY (12/19/2015) us Doc [facility] Scanned SCANNING Final Resu lt [facility] from Last 3 Months or Most Recently Relevant to Health Maintenance [place] [address] MEDICARE MEDICARE [facility] Care Teams Machine Sand Mixer Relationship Specialty Start Date End Date Adria Aldridge DO [address] [place] [address] PCP - General INTERNAL MEDICINE 12/01/22 John Paul Cherry MD [facility] [address] [place] [address] Marion Wood Grainer CARDIOVASCULAR DISEASE 07/12/16
--- OUTSIDE RECORDS SUMMARY | 2024-07-30 02:30 | XMS_ITS | Encounter Summary ---
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 No / Unsure 08/23/2020 9:32 AM CDT documented as of this encounter Plan of Treatment Upcoming Encounters Date Type Department Care Team (Late Contact Info) Description 12/29/2024 9:30 AM CDT Office Visit [facility], [address] [place] [address] John Paul Cherry MD Three [facility]. [address] [place] [address] documented as of this encounter Procedures Procedure Name Priority Date/Time Associated Diagnosis Comments HEMOGLOBIN, GLYCOSYLATED Routine 09/03/2022 COMPREHENSIVE METABOLIC PANEL Routine 09/03/2022 LIPID PANEL Routine 09/03/2022 CBC, MANUAL DIFF Routine 09/03/2022 CBC (OUTSIDE LAB) Routine 08/15/2021 PROSTATE SPECIFIC ANTIGEN,TOTAL Routine 08/15/2021 COMPREHENSIVE METABOLIC PANEL Routine 08/15/2021 LIPID PANEL Routine 08/15/2021 HEMOGLOBIN, GLYCOSYLATED Routine 08/15/2021 VITAMIN D, 25 OH Routine 08/15/2021 PROSTATE SPECIFIC ANTIGEN,TOTAL Routine 01/15/2020 COMPREHENSIVE METABOLIC PANEL Routine 01/15/2020 LIPID PANEL Routine 01/15/2020 HEMOGLOBIN, GLYCOSYLATED Routine 01/15/2020 documented in this encounter Results * COMPREHENSIVE METABOLIC PANEL (09/03/2022) SODIUM S/P/B 143 GLUCOSE 99 mg/dL AST 15 BUN 25 CREATININE S/P/B 1.30 0.7 - 1.3 CALCIUM S/P/B 9.7 POTASSIUM S/P/B 4.3 CHLORIDE S/P/B 107 ALT 18 GFR ESTIMATE 59 Narrative Resulting Agency Comment us Default History Genericprovider LABORATORY Final Result * LIPID PANEL (09/03/2022) CHOLESTEROL 127 TRIGLYCERIDES 60 HDL 51 LDL (CALCULATED) 47 Narrative Resulting Agency Comment [facility] History Genericprovider LABORATORY Final Result * CBC, MANUAL DIFF (09/03/2022) Pathologist [facility] WBC 9.4 HGB 15.2 HCT 46.0 PLT 186 Narrative Resulting Agency Comment Default History Genericprovider LABORATORY Final Result * HEMOGLOBIN, GLYCOSYLATED (09/03/2022) Pathologist [facility] HGB A1C 5.6 % Narrative Resulting Agency Comment Result [facility] History Genericprovider LABORATORY Final Result * CBC (OUTSIDE LAB) (08/15/2021) Pathologist [facility] WBC 9.9 HGB 15.0 HCT 44.7 PLT 188 08/15/2021 Doc [facility] Abstract LAB-OUTSIDE/ABSTRACTED Final Result * (ABNORMAL) COMPREHENSIVE METABOLIC PANEL (08/15/2021) Pathologist [facility] SODIUM S/P/B 142 POTASSIUM S/P/B 5.6 CO2 25 CHLORIDE S/P/B 107 GLUCOSE 112 mg/dL CALCIUM S/P/B 9.8 BUN 27 CREATININE S/P/B 1.40(A) 0.7 - 1.3 EGFR NON-AFR. AMER. 55 <=90 ALKALINE PHOSPHATASE S/P/B 66 ALT 19 AST 17 BILIRUBIN TOTAL S/P/B 0.4 ALBUMIN S/P/B 4.4 3.5 - 5.0 TOTAL PROTEIN S/P/B 7.1 08/15/2021 us Doc [facility] Abstract LABORATORY Final Result * LIPID PANEL (08/15/2021) Pathologist [facility] CHOLESTEROL 144 HDL 47 TRIGLYCERIDES 74 LDL (CALCULATED) 71 08/15/2021 [facility] LABORAT[facility] Final Result * HEMOGLOBIN, GLYCOSYLATED (08/15/2021) HGB A1C 5.4 % 08/15/2021 [facility] LABORATORY Final Result * PROSTATE SPECIFIC ANTIGEN,TOTAL (08/15/2021) PSA <0.04 08/15/2021 [facility] LABORAT[facility] Final Result * VITAMIN D, 25 OH (08/15/2021) VITAMIN D 25 HYDROXY S/P/B 12 08/15/2021 [facility] LABORATORY Edited Resul t - Final * HEMOGLOBIN, GLYCOSYLATED (01/15/2020) HGB A1C 5.3 % 01/15/2020 [facility] LABORATORY Final Result * PROSTATE SPECIFIC ANTIGEN,TOTAL (01/15/2020) PSA 7.09 01/15/2020 [facility] LABORATORY Final Result * COMPREHENSIVE METABOLIC PANEL (01/15/2020) SODIUM S/P/B 142 POTASSIUM S/P/B 5.4 CO2 27 CHLORIDE S/P/B 105 GLUCOSE 125 mg/dL CALCIUM S/P/B 9.7 BUN 17 CREATININE S/P/B 1.20 0.7 - 1.3 EGFR AFR. AMER. 71 <=90 EGFR NON-AFR. AMER. 62 <=90 ALKALINE PHOSPHATASE S/P/B 108 ALT 13 AST 11 BILIRUBIN TOTAL S/P/B 0.4 ALBUMIN S/P/B 4.2 3.5 - 5.0 TOTAL PROTEIN S/P/B 7.0 01/15/2020 us Doc [facility] LABORATORY Final Result * LIPID PANEL (01/15/2020) CHOLESTEROL 199 HDL 57 TRIGLYCERIDES 99 LDL (CALCULATED) 116 01/15/2020 us Doc [facility] LABORATORY Final Result documented in this encounter Visit Diagnoses Not on filedocumented in this encounter Care Teams Blasting Clay Miner Relationship Specialty Start Date End Date López King DO [address] [facility] [address] [place], [place] [address] PCP - General DUMBWAITER OPERATOR 08/23/20 12/04/21 Jess Floyd DO [address] [facility] [place], [place] [address] PCP - General INTERNAL MEDICINE 12/05/21 11/30/22 Adria Aldridge DO [address] [place], [place] [address] PCP - General INTERNAL MEDICINE 12/01/22 John Paul Cherry MD Three [facility]. [address] [place] [address] Kennedy Screen Print Operator CARDIOVASCULAR DISEASE 07/12/16 documented as of this encounter
--- NOTE | 2024-07-30 09:53 | PM.HPGS ---
History of Present Illness History of Present Illness Consent: Risks, benefits, and alternatives have been discussed and questions answered. Patient agrees to proceed with procedure. Chief complaint: Screening Narrative: Nicola Ash is a 74 year old male here for screening colonoscopy, last one several years ago Review of Systems Review of Systems: All systems reviewed & are unremarkable except as noted in HPI and below PMFSH Past Medical History Medical History (Updated 07/30/24 @ 09:53 by Kong Newsome MD) Colon cancer screening Recovering alcoholic History of traumatic head injury Cerebrovascular disease Prostate cancer Chronic cerebrovascular accident Dyslipidemia Cardiomyopathy Coronary artery disease Tobacco abuse Anxiety Seizure disorder Surgical History Surgical History H/O cataract removal with insertion of prosthetic lens (~10/2021) History of prostatectomy H/O foot surgery Left foot surgery due to a fracture around 2004 H/O total knee replacement R total knee arthroplasty by Dr Campos September 2017 H/O heart artery stent Patient believes in 2008 Hx of CABG [address] Cherry 2012 Family History Family History Sibling Diabetes mellitus Father Acute myocardial infarction Other Family history of arthritis Social History Social History (Updated 09/05/23 @ 13:03 by Chely Oshea) Social History: Mr. Ash is , retired from working as a information systems security officer, lives at home alone. He smokes two packs of cigarettes per day for the last 50 years. 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 He had a 4-month binge of alcohol abuse relapse again last year but now has been sober since December 2018. Denies other substance use. PCP is at [facility] - Dr Floyd Patient designates his friend, Bola Keyes, to be his surrogate decision maker and wishes his code status to be Do Not Resuscitate. Caffeine-daily Smoking packs per day: 0.5 Smoking cigarettes per day: 10.0 Years smoked: 55 Smoking pack-years: 27.50 Smoking status: Current every day smoker Tobacco type: cigarettes Second hand tobacco smoke exposure: Yes Additional smoking assessment comments: STATES DOWN TO 7-8 CIGARETTES/DAY FROM 3PK/DAY - STATES SMOKED FOR 50+YRS Alcohol intake: former Drinks per week: 30 Alcohol use details: RECOVERING ALCHOLIC LAST DRINK 12/07/2018 Substance use: former Substance use type: does not use Lack of Transportation: No Lack of Food: Never True Current Housing: I Have Housing Concerned About Future Housing: No Difficulty Paying Gas/Electric Bills: No Difficulty Paying for Meds: No Currently Unemployed: No Education: High School Diploma/GED Difficulty w/ Childcare or Family Care: No Living arrangements: with friend(s) Gender identity (if verbalized by the patient): Male Sexual Orientation (if Verbalized by the Patient): Straight or Heterosexual Spiritual care concerns: No Meds Home Medications and Allergies Home Medications ?Medication ?Instructions ?Recorded ?Confirmed ?Type ezetimibe 10 mg tablet 10 mg PO HS 02/01/20 07/20/24 History rosuvastatin 20 mg tablet 20 mg PO HS 02/01/20 07/20/24 History aspirin 81 mg tablet,delayed 81 mg PO HS 12/27/20 07/20/24 History release cholecalciferol (vitamin D3) 25 25 mcg PO DAILY 01/03/22 07/20/24 History mcg (1,000 unit) capsule nitroglycerin 0.4 mg sublingual 0.4 mg sublingual Q5M PRN chest 01/03/22 07/20/24 History tablet pain levetiracetam 750 mg tablet See Rx Instructions .Route 09/05/23 07/20/24 Rx .COMPLEX #180 tabs aflibercept 2 mg/0.05 mL 1 mg intravitreal .every 3 mos. 07/20/24 07/20/24 History intravitreal solution for injection PRN macular degenerative Allergies Allergy/AdvReac Type Severity Reaction Status Date / Time No Known Allergies Allergy Verified 07/20/24 09:47 Exam Const: General: comfortable and no acute distress HENMT: Face/Nose/Sinus: Normal nares present Eyes: General: appearance normal, both eyes and all related structures Neck: Neck: no JVD Resp: Auscultation: clear to auscultation bilaterally Cardio: Rate: regular rate Rhythm: regular rhythm GI: Inspection: non-distended GI Palp: Yes Soft to palpation Skin: General skin exam: normal color Neuro: General: gait normal Speech: normal speech Extrem: General: normal to inspection Psych: Mental Status: mental status grossly normal Assessment and Plan Assessment and plan (1) Colon cancer screening: Code(s): Z12.11 - Encounter for screening for malignant neoplasm of colon Status: Acute Assessment and Plan: colonoscopy
[2024-07-30 09:55] VITALS: BP 105/84; PULSE 75; RESP 18; TEMP 36.3; O2SAT 100
[2024-07-30] MEDS: LACTATED RINGERS 1,000 ML 150 ML IV CONT (10:01)
--- NOTE | 2024-07-30 10:01 | WPDANESEPPF ---
Anes - Initial Pre Proc Eval Procedure: Operation Date: 07/30/24 13:30 Proposed Procedures p Screening Colonoscopy - Kong Newsome MD Date/Time: 07/30/24 10:01 Surgeon: Kong Newsome MD Pre Op Diagnosis: Screening Patient Data Age: 74 Gender: M Height: 1.73 m Weight: 74.7 kg Last Vital Signs Temp 97.4 F L 07/30/24 09:55 Pulse 75 07/30/24 09:55 Resp 18 07/30/24 09:55 BP 105/84 07/30/24 09:55 Pulse Ox 100 07/30/24 09:55 O2 Del Method Room Air 07/30/24 09:55 Allergies Allergy/AdvReac Type Severity Reaction Status Date / Time No Known Allergies Allergy Verified 07/30/24 09:54 Home Medications ?Medication ?Instructions ?Recorded ?Confirmed ?Type ezetimibe 10 mg tablet 10 mg PO HS 02/01/20 07/30/24 History rosuvastatin 20 mg tablet 20 mg PO HS 02/01/20 07/30/24 History aspirin 81 mg tablet,delayed 81 mg PO HS 12/27/20 07/30/24 History release cholecalciferol (vitamin D3) 25 25 mcg PO DAILY 01/03/22 07/30/24 History mcg (1,000 unit) capsule nitroglycerin 0.4 mg sublingual 0.4 mg sublingual Q5M PRN chest 01/03/22 07/20/24 History tablet pain levetiracetam 750 mg tablet See Rx Instructions .Route 09/05/23 07/30/24 Rx .COMPLEX #180 tabs aflibercept 2 mg/0.05 mL 1 mg intravitreal .every 3 mos. 07/20/24 07/20/24 History intravitreal solution for injection PRN macular degenerative Patient hx anesthesia problems: none Family hx anesthesia problems: none Results Review: All pre-operative results and documents have been reviewed as part of the pre-operative evaluation. [facility] Past Medical History Medical History Colon cancer screening Recovering alcoholic History of traumatic head injury Cerebrovascular disease Prostate cancer Chronic cerebrovascular accident Dyslipidemia Cardiomyopathy Coronary artery disease Tobacco abuse Anxiety Seizure disorder Surgical History Surgical History H/O cataract removal with insertion of prosthetic lens (~10/2021) History of prostatectomy H/O foot surgery Left foot surgery due to a fracture around 2004 H/O total knee replacement R total knee arthroplasty by Dr Campos September 2017 H/O heart artery stent Patient believes in 2008 Hx of CABG [address] Cherry 2012 Family History Family History Sibling Diabetes mellitus Father Acute myocardial infarction Other Family history of arthritis Social History Social History Social History: Mr. Ash is , retired from working as a computer systems security administrator, lives at home alone. He smokes two packs of cigarettes per day for the last 50 years. 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 He had a 4-month binge of alcohol abuse relapse again last year but now has been sober since December 2018. Denies other substance use. PCP is at [facility] - Dr Floyd Patient designates his friend, Bola Keyes, to be his surrogate decision maker and wishes his code status to be Do Not Resuscitate. Caffeine-daily Smoking packs per day: 0.5 Smoking cigarettes per day: 10.0 Years smoked: 55 Smoking pack-years: 27.50 Smoking status: Current every day smoker Tobacco type: cigarettes Second hand tobacco smoke exposure: Yes Additional smoking assessment comments: STATES DOWN TO 7-8 CIGARETTES/DAY FROM 3PK/DAY - STATES SMOKED FOR 50+YRS Alcohol intake: former Drinks per week: 30 Alcohol use details: RECOVERING ALCHOLIC LAST DRINK 12/07/2018 Substance use: former Substance use type: does not use Lack of Transportation: No Lack of Food: Never True Current Housing: I Have Housing Concerned About Future Housing: No Difficulty Paying Gas/Electric Bills: No Difficulty Paying for Meds: No Currently Unemployed: No Education: High School Diploma/GED Difficulty w/ Childcare or Family Care: No Living arrangements: with friend(s) Gender identity (if verbalized by the patient): Male Sexual Orientation (if Verbalized by the Patient): Straight or Heterosexual Spiritual care concerns: No Anes - Eval Final PreProcedure Day of Procedure 07/30/24 10:01 Patient weight: overweight Lungs: normal air movement Airway: Mallampati scale and special considerations (Edentulous. ) Neurological: alert and oriented Last oral intake: >/= 8 hours ASA classification: IV Emergent: no Anesthetic plan: proceed Anesthesia type and monitoring: general GIVS and standard monitoring Results Review: All pre-operative results and documents have been reviewed as part of the pre-operative evaluation. HTN, hx of PTCA and CABG in the past, cont to smoke, pt reports that he saw his straight knife machine cutter last year. No interval changes. Informed Consent: The patient's anesthetic plan and its attendant risks and benefits were discussed with the patient/family/POA. Questions were solicited and answers provided to the satisfaction of the patient/family/POA.
[2024-07-30 10:25] VITALS: BP 92/58; PULSE 66; RESP 18; O2SAT 98
[2024-07-30 10:35] VITALS: BP 90/60; PULSE 65; RESP 18; O2SAT 98
[2024-07-30 10:45] VITALS: BP 101/58; PULSE 62; RESP 24; O2SAT 97
== END 2024-07-30 10:59 | disposition home or self-care (01) ==
PROVIDERS: Visit Provider Internal Medicine Gastroenterology
PROC: 0DJD8ZZ Inspection of Lower Intestinal Tract, Via Natural or Artificial Opening Endoscopic (ICD-10-PCS; CPT 45378; principal; 2024-07-30 13:30)
DX: Z12.11 Encounter for screening for malignant neoplasm of colon (principal); D12.3 Benign neoplasm of transverse colon; D12.4 Benign neoplasm of descending colon; K57.30 Diverticulosis of large intestine without perforation or abscess without bleeding; K64.8 Other hemorrhoids; F17.210 Nicotine dependence, cigarettes, uncomplicated; F10.21 Alcohol dependence, in remission
CPT/HCPCS: 45385; 88305; J2704; J7120

== ENCOUNTER 2025-02-25 10:31 | Outpatient (CLI) | payer MEDICARE, OTHER, SELFPAY ==
[2025-02-25 11:31] LABS: Cholesterol 132 mg/dL (0-200); HDL Direct 50 mg/dL; Triglycerides 66 mg/dL (<150)
[2025-02-25 12:43] LABS: Vitamin B12 480.0 pg/mL (239-931)
[2025-03-01 13:08] LABS: Vit. B1, Whole Blood 141.1 nmol/L (66.5-200.0)
== END 2025-02-25 10:32 | disposition home or self-care (01) ==
LOC: ANHLAB 10:33
PROVIDERS: Visit Provider Psychiatry & Neurology Neurology
DX: I25.810 Atherosclerosis of coronary artery bypass graft(s) without angina pectoris (principal); I67.9 Cerebrovascular disease, unspecified; R56.9 Unspecified convulsions; Z86.73 Personal history of transient ischemic attack (TIA), and cerebral infarction without residual deficits; F10.21 Alcohol dependence, in remission; Z72.0 Tobacco use
CPT/HCPCS: 36415; 80061; 82607; 82746; 83090; 84425

== ENCOUNTER 2025-03-01 14:21 | Outpatient (CLI) | payer MEDICARE, OTHER, SELFPAY ==
--- NOTE | ~2025-03-01 | US_ITS ---
EXAMINATION: US carotid duplex BI DATE: 03/01/2025 15:13 INDICATION: Right-sided cerebral infarct. Dizziness and giddiness. TECHNIQUE: Grayscale, color Doppler, and pulsed Doppler images of the cervical carotid arteries were obtained. The degree of vessel stenosis is placed in one of the following categories: normal, <50%, 50-69%, >=70% but less than near- occlusion, near-occlusion, or total occlusion. Note that percent stenosis relative to normal distal artery lumen diameter is indirectly measured from velocity measurements as described by David, et al. Radiology 2003; 229:340-346. COMPARISON: Ultrasound 09/12/2023 FINDINGS: RIGHT: The right common carotid artery (CCA) peak systolic velocity (PSV) is 93 cm/s. The right internal carotid artery (ICA) PSV is 63 cm/s. The right ICA end- diastolic velocity (EDV) is 21 cm/s. The right ICA/CCA PSV ratio is 0.7. Grayscale and color Doppler images yield an estimate of <50% diameter reduction from plaque in the ICA. There is antegrade flow in the right vertebral artery. LEFT: The left CCA PSV is 87 cm/s. The left ICA PSV is 91 cm/s. The left ICA EDV is 31 cm/s. The left ICA/CCA PSV ratio is 1.0. Grayscale and color Doppler images yield an estimate of <50% diameter reduction from plaque in the ICA. There is antegrade flow in the left vertebral artery. IMPRESSION: 1. <50% stenosis in the right internal carotid artery. 2. <50% stenosis in the left internal carotid artery. Reviewed, dictated and finalized at location E.
--- OUTSIDE RECORDS SUMMARY | 2025-03-01 15:03 | XMS_ITS | Encounter Summary ---
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 [address] [place] [address] documented as of this encounter Procedures Procedure Name Priority Date/Time Associated Diagnosis Comments HEPATIC FUNCTION PANEL Routine 06/26/2024 HEMOGLOBIN, GLYCOSYLATED Routine 09/03/2022 COMPREHENSIVE METABOLIC PANEL [...] 01/15/2020 documented in this encounter Results * (ABNORMAL) HEPATIC FUNCTION PANEL (06/26/2024) ALBUMIN S/P/B 4.20 3.5 - 5.0 ALKALINE PHOSPHATASE S/P/B 64 ALT 14 AST 11 BILIRUBIN DIRECT S/P/B 0.1 BILIRUBIN TOTAL S/P/B 0.4 TOTAL PROTEIN S/P/B 7.1 CREATININE S/P/B 1.40(A) 0.7 - 1.3 06/26/2024 Default History Genericprovider LABORATORY Final Result * COMPREHENSIVE METABOLIC PANEL (09/03/2022) SODIUM S/P/B 143 GLUCOSE 99 mg/dL AST 15 BUN 25 CREATININE S/P/B 1.30 0.7 - 1.3 CALCIUM S/P/B 9.7 POTASSIUM S/P/B 4.3 CHLORIDE S/P/B 107 ALT 18 GFR ESTIMATE 59 Narrative Resulting Agency Comment Default History Genericprovider LABORATORY Final Result * LIPID PANEL (09/03/2022) Pathologist [facility] CHOLESTEROL 127 TRIGLYCERIDES 60 HDL 51 LDL (CALCULATED) 47 Narrative Resulting Agency Comment [facility] History Genericprovider LABORATORY Final Result * CBC, MANUAL DIFF (09/03/2022) WBC 9.4 HGB 15.2 HCT 46.0 PLT 186 Narrative Resulting Agency Comment Result [facility] Genericprovider LABORATORY Final Result * HEMOGLOBIN, GLYCOSYLATED (09/03/2022) Pathologist [facility] HGB A1C 5.6 % Narrative Resulting Agency Comment Result [facility] Default History Genericprovider LABORATORY Final Result * CBC (OUTSIDE LAB) (08/15/2021) Pathologist [facility] WBC 9.9 HGB 15.0 HCT 44.7 PLT 188 08/15/2021 Doc [facility] Abstract LAB-OUTSIDE/ABSTRACTED Final Result * (ABNORMAL) COMPREHENSIVE METABOLIC PANEL (08/15/2021) SODIUM S/P/B 142 POTASSIUM S/P/B 5.6 CO2 [...] LABORATORY Final Result * LIPID PANEL (08/15/2021) CHOLESTEROL 144 HDL 47 TRIGLYCERIDES 74 LDL (CALCULATED) 71 08/15/2021 us Doc [facility] Abstract LABORATORY Final Result * HEMOGLOBIN, GLYCOSYLATED (08/15/2021) HGB A1C 5.4 % 08/15/2021 us Doc [facility] Abstract LABORATORY Final Result * PROSTATE SPECIFIC ANTIGEN,TOTAL (08/15/2021) PSA <0.04 08/15/2021 us Doc [facility] Abstract LABORATORY Final Result * VITAMIN D, 25 OH (08/15/2021) VITAMIN D 25 HYDROXY S/P/B 12 08/15/2021 [facility] Abstract LABORATORY Edited Resul t - Final * HEMOGLOBIN, GLYCOSYLATED (01/15/2020) HGB A1C 5.3 % 01/15/2020 us Doc [facility] Abstract LABORATORY Final Result * PROSTATE SPECIFIC ANTIGEN,TOTAL (01/15/2020) PSA 7.09 01/15/2020 us Doc [facility] Abstract LABORATORY Final Result * COMPREHENSIVE METABOLIC PANEL (01/15/2020) Pathologist [facility] SODIUM S/P/B 142 POTASSIUM S/P/B 5.4 CO2 [...] LABORATORY Final Result * LIPID PANEL (01/15/2020) Pathologist [facility] CHOLESTEROL 199 HDL 57 TRIGLYCERIDES 99 LDL (CALCULATED) 116 01/15/2020 us Doc [facility] Abstract LABORATORY Final Result documented in this encounter Visit Diagnoses Not on filedocumented in this encounter Care Teams Agriculture Laboratory Technician Relationship Specialty Start Date End Date López King DO [address] [place], [place] [address] PCP - General COAL CARRIER 08/23/20 12/04/21 Jess Floyd DO [address] [facility] [place], [place] [address] PCP - General INTERNAL MEDICINE 12/05/21 11/30/22 Adria Aldridge DO [address] [place], [place] [id number] PCP - General INTERNAL MEDICINE 12/01/22 John Paul Cherry MD Three [facility]. [address] [place] [address] [place] [facility] [employer] Intern CARDIOVASCULAR DISEASE 07/12/16 documented as of this encounter
--- OUTSIDE RECORDS SUMMARY | 2025-03-01 15:03 | XMS_ITS | Encounter Summary ---
Author Organization [facility] Address [facility] [place] [address] Care Team Providers Care Track Subway Repair Supervisor Name Role Phone Luís Elizondo MD Primary Care Provider [phone] John Paul Cherry MD Unavailable Elmer Forbes Primary Care Provider [phone] Jess Floyd DO Primary Care Provider [phone] López King DO Primary Care Provider [phone] Jess Floyd DO Primary Care Provider [phone] Adria Aldridge DO Primary Care Provider [phone] Encounter Details Date Type Department Care Team (Late st Contact Info) Description 08/30/2016 Abstract [facility] [address] [address] Kristen Alfonso MA Social History Tobacco Use [...] 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 [address] [place] [address] documented as of this encounter Procedures Procedure [...] on filedocumented in this encounter Care Teams Track Subway Repair Supervisor Relationship Specialty Start Date End Date Luís Elizondo MD [address] [place], [place] [id number] PCP - General INTERNAL MEDICINE 11/02/15 06/24/17 Elmer Forbes PA [facility] [address] [place], [place] [address] PCP - General PHYSICIAN MANAGER OF HEALTH 06/25/17 06/02/19 Jess Floyd DO [address] [id number] PCP - General INTERNAL MEDICINE 06/03/19 08/22/20 López King DO [address] [facility] [address] [place], [place] [address] PCP - General GAS BOOSTER ENGINEER 08/23/20 12/04/21 Jess Floyd DO [address] [place] [address] PCP - General INTERNAL MEDICINE 12/05/21 11/30/22 Adria Aldridge DO [address] [facility] [place] [address] PCP - General INTERNAL MEDICINE 12/01/22 John Paul Cherry MD [facility]. [facility] [address] [facility], [place] [address] Karlos It Operations Manager CARDIOVASCULAR DISEASE 07/12/16 documented as of this encounter
--- OUTSIDE RECORDS SUMMARY | 2025-03-01 15:03 | XMS_ITS | Clinical Summary ---
Author Organization [facility] Address [address] [place] [address] Care Team Providers Care Memory Care Program Resident Name Role Phone Joshua Aguilar MD Unavailable Adria Aldridge DO Primary Care Provider [phone] Allergies No known active allergies Medications aspirin [...] TO ER 18 tablet 3 2 Active Additional Information Patient not taking.Reported on 12/29/2024 calcium carbonate (OS-HERNAN) 1500 (600 Ca) MG tablet Take 1 tablet (1,500 mg total) by mouth daily. Active ezetimibe (ZETIA) 10 MG tablet Take 1 tablet (10 mg total) by mouth nightly at bedtime. 90 tablet 3 5 Active rosuvastatin (CRESTOR) 20 MG tablet Take 1 tablet (20 mg total) by mouth nightly at bedtime. 90 tablet 3 5 Active Active Problems Problem Noted Date Diagnosed Date CAD (coronary artery disease) Overview (08/20/2016): s/p CABG in 2012 Dyslipidemia Seizure disorder ([facility]) PAD (peripheral artery disease) Ischemic cardiomyopathy Tobacco use Alcoholism ([facility]) Resolved Problems Problem Noted Date Diagnosed Date Resolved Date NSTEMI (non-ST elevated myoc ardial infarction) ([facility]) 06/29/2012 06/18/2017 Peripheral vascular disease 06/18/2017 Tobacco abuse disorder 08/31 Encounters Date Type Department Care Team Description 12/29/2024 9:30 AM CDT Office Visit [facility] [address] [address] Joshua Aguilar MD Annual; Coronary Artery Disease; Cardiomyopathy; Lipids 12/29/2024 Travel from Last 3 Months Immunizations Immunization Administration Dates Next Due Fluzone High Dose - >Age 65 (Prefilled Syringe) 03/24/2022,02/10/2017 Influenza (Generic) 05/10/2008,03/28/2007 Influenza Adult (Generic) 02/13/2018,02/10/2017 Pneumococcal (Pneumovax 23) 07/14/2012, 8 Pneumococcal (Prevnar 13) 02/13/2018 Pneumococcal (Prevnar 20) 08/31/2022 Shingrix 08/31/2022,01/15/2020 Td (TDVAX) 01/15/2020 Tdap (Generic) 03/28/2007 Zoster (Zostavax) 814[address] Unt/0.65Ml 04/06/2014 Family History Medical History Relation [...] 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 Not on file Not on file Not on file Not on file Not on file Not on file Last Filed Vital Signs Vital Sign Reading Time Taken Comments Blood Pressure 126/64 12/29/2024 9:15 AM CDT Pulse 64 12/29/2024 9:15 AM CDT Temperature - - Respiratory Rate - - Oxygen Saturation 98% 12/29/2024 9:15 AM CDT Inhaled Oxygen Concentration - - Weight 76.2 kg (168 lb) 12/29/2024 9:15 AM CDT Height 177.8 cm (5' 10) 12/29/2024 9:15 AM CDT Body Mass Index 24.11 12/29/2024 9:15 AM CDT Plan of Treatment Upcoming Encounters Date Type Department Care Team (Late st Contact Info) Description 01/04/2026 8:45 AM CDT Office Visit [facility], [facility] [address] [place], [place] [id number] Ashley Bob, ANP-BC [facility]. [address] [place] [address] Health Maintenance Due Date Last Done Comments Hepatitis C 1969 RSV Immunization or 60+ Years (1 - Risk 60-74 years 1-dose series) 2011 AAA SCREENING 2016 Annual Medicare Wellness Visit 2016 ASCVD LDL 09/04/2023 09/03/2022, 08/01, 01/15/2020, Additional history exists COVID-19 Vaccine ( season) 2025 03/24/2022, 11/08/2020, 10/11/2020 Colorectal Cancer Screening Colonoscopy (10 Years) 12/18/2025 12/19/2015 DTaP, Tdap and Td Vaccines (3 - Td or Tdap) 01/14/2030 01/15/2020, 03/28/2007 Pneumococcal Vaccine: 50+ Years Completed 08/31/2022, 02/13/2018, 07/14/2012, Additional history [...] Procedure Name Priority Date/Time Associated Diagnosis Comments ELECTROCARDIOGRAM (NON MIDMARK ACQUIRED) Routine 12/29/2024 9:24 AM CDT Ischemic cardiomyopathy LIPID PANEL Routine 09/03/2022 COLONOSCOPY GENERIC (SCAN ORDER) Routine 12/19/2015 from Last 3 Months or Most Recently Relevant to Health Maintenance Results * ELECTROCARDIOGRAM (12/29/2024 9:24 AM CDT) 12/29/2024 9:24 AM CDT Narrative [facility] - 01/02/2025 6:14 AM CDT [facility] Test Date: 2024-12-29 Pat Name: FELA GEE Department: 112 Room: Gender: Male Sodder: : 1950 Requested By: JOSHUA AGUILAR Order Number: [id number] Reading MD: Joshua Aguilar Measurements Intervals [place] Rate: 61 P: 16 NV: 174 QRS: 120 QRSD: 113 T: 53 QT: 380 QTc: 385 Interpretive Statements SINUS RHYTHM WITH SINUS ARRHYTHMIA INDETERMINATE AXIS LOW QRS VOLTAGE IN PRECORDIAL LEADS POSSIBLE RIGHT VENTRICULAR CONDUCTION DELAY ANTEROLATERAL MYOCARDIAL INFARCTION, OF INDETERMINATE AGE Procedure Note Joshua Aguilar MD - 01/02/2025 [facility] [place] Test Date: 2024-12-29 Pat Name: FELA MARLEN Department: 112 Room: Gender: Male Sodder: : 1950 Requested By: JOSHUA AGUILAR Order Number: [id number] Reading MD: Joshua Aguilar Measurements Intervals [place] Rate: 61 P: 16 NV: 174 QRS: 120 QRSD: 113 T: 53 QT: 380 QTc: 385 Interpretive Statements SINUS RHYTHM WITH SINUS ARRHYTHMIA INDETERMINATE AXIS LOW QRS VOLTAGE IN PRECORDIAL LEADS POSSIBLE RIGHT VENTRICULAR CONDUCTION DELAY ANTEROLATERAL MYOCARDIAL INFARCTION, OF INDETERMINATE AGE us Joshua Aguilar MD PROCEDURES-ORDERABLE NO CHARGE F inal Result Performing Organization Address City/[facility]/ZIP Co de Phone Number [facility] * LIPID PANEL (09/03/2022) CHOLESTEROL 127 TRIGLYCERIDES 60 HDL 51 LDL (CALCULATED) 47 Narrative Resulting Agency Comment us Default History Genericprovider LABORATORY Final Result * COLONOSCOPY (12/19/2015) us Doc Med Group Scanned SCANNING Final Resu lt Performing Organization Address City/[facility]/ZIP Co de Phone Number [facility] [place] from Last 3 Months or Most Recently Relevant to Health Maintenance Insurance [facility] MEDICARE MEDICARE HUMANA Care Teams Memory Care Program Resident Relationship Specialty Start Date End Date Adria Aldridge DO [address] [place] [address] PCP - General INTERNAL MEDICINE 12/01/22 Joshua Aguilar MD Three [facility]. [facility] [address] [place] [address] Karlos Brass Wind Instrument Maker CARDIOVASCULAR DISEASE 07/12/16
== END 2025-03-01 14:22 | disposition home or self-care (01) ==
PROVIDERS: Visit Provider Psychiatry & Neurology Neurology
DX: I65.23 Occlusion and stenosis of bilateral carotid arteries (principal); R42 Dizziness and giddiness; I67.9 Cerebrovascular disease, unspecified; R56.9 Unspecified convulsions; Z86.73 Personal history of transient ischemic attack (TIA), and cerebral infarction without residual deficits; F10.21 Alcohol dependence, in remission; Z72.0 Tobacco use
CPT/HCPCS: 93880